=== PATIENT | female | born 1945 | race Caucasian/White ===

== ENCOUNTER 2016-07-11 09:07 | Observation (INO) | payer MEDICARE, OTHER ==
[~2016-07-11] VITALS: Ht 152.4 cm; Wt 59.0 kg
[~2016-07-11 09:07] MED LIST: AMIT10TA6 PO; KCL10CCR; LOVA20TA63; METR45CR2; SPIR25TA3 PO; TRIA1CAP4; TROS60CA
[2016-07-11] MEDS ORDERED: NS IV 1000 ML 1,000 ML IV ONE (09:29)
[2016-07-11] MEDS ORDERED: ONDANSETRON 4 MG/2 ML (SDV) Z0FRAN IVP PRN (09:30)
[2016-07-11] MEDS ORDERED: ACETAMINOPHEN 500 MG TAB (TYLENOL) PO PRN ×2 (09:30→13:15)
[2016-07-11 09:40] LABS: BASOPHILS % (AUTO) 0 % (0-10); EOSINOPHILS % (AUTO) 1 % (0-10); LYMPHOCYTES # (AUTO) 0.4 X 10^3 (1.0-4.0); LYMPHOCYTES % (AUTO) 6 % (12-44); MEAN CORPUSCULAR HEMOGLOBIN 30 PG (25-34); MEAN CORPUSCULAR HGB CONC 35 G/DL (32-36); MEAN CORPUSCULAR VOLUME 85 FL (80-99); MEAN PLATELET VOLUME 9.9 FL (7.4-10.4); MONOCYTES # (AUTO) 0.4 X 10^3 (0.0-1.0); MONOCYTES % (AUTO) 6 % (0-12); NEUTROPHILS # (AUTO) 6.6 X 10^3 (1.8-7.8); NEUTROPHILS % (AUTO) 88 % (42-75); PLATELET COUNT 151 10^3/uL (130-400); RED BLOOD COUNT 5.11 10^6/uL (4.35-5.85); RED CELL DISTRIBUTION WIDTH 12.6 % (10.0-14.5); WHITE BLOOD COUNT 7.5 10^3/uL (4.3-11.0)
[2016-07-11] MEDS ORDERED: ACETAMINOPHEN 500 MG TAB (TYLENOL) ONE (09:40)
[2016-07-11 09:52] LABS: PROTHROMBIN TIME PATIENT 13.2 SEC (12.2-14.7)
--- NOTE | 2016-07-11 09:52 | ED General ---
General Chief Complaint: Abdominal/GI Problems Stated Complaint: WEAKNESS FALL Source of Information: Patient Exam Limitations: No Limitations History of Present Illness Time Seen by Provider: 09:15 Initial Comments Here with report of fever, weakness, vomiting and a fall. here with family who reports that she's been sick for the past 2-3 days and had episodes of vomiting and fever. Apparently passed out yesterday. Denies any pain from that. She does have fever today. Denies diarrhea. The trip involved travel to [place] and back. Frequent stops were made. Nobody else in the family is sick. Timing/Duration: 2-3 Days Severity: Moderate Associated Systoms: No Chest Pain, No Cough, Fever/Chills, Nausea/Vomiting, No Shortness of Air, Weakness Allergies and Home Medications Allergies Coded Allergies: Ampicillin (Unverified Allergy, Mild, 05/07/09) Codeine (Unverified Allergy, Mild, 05/07/09) Hydrocodone (Unverified Allergy, Mild, 05/07/09) Nitrofurantoin (Unverified Allergy, Mild, 05/07/09) Sulfa(Sulfonamide Antibiotics) (Unverified Allergy, Mild, 05/07/09) tramadol (Unverified Allergy, Mild, 05/07/09) Home Medications Amitriptyline Hcl 10 Mg Tablet, 1 EACH PO DAILY, (Reported) Lovastatin 20 Mg Tab.sr.24h, (Reported) Mirabegron 50 Mg Tab.er.24h, 50 MG PO D, (Reported) Potassium Chloride 10 Meq Capcr, (Reported) Spironolactone 25 Mg Tablet, 25 MG PO, (Reported) Trospium Chloride 60 Mg Cap.sr.24h, (Reported) Constitutional: see HPI, chills, fever, weakness EENTM: nose congestion, No throat pain Respiratory: No cough, No short of breath Cardiovascular: see HPI, No chest pain, No edema, No palpitations, syncope Gastrointestinal: No abdominal pain, No diarrhea, nausea, vomiting Genitourinary: no symptoms reported Musculoskeletal: no symptoms reported Skin: no symptoms reported Psychiatric/Neurological: No Symptoms Reported All Other Systems Reviewed Negative Unless Noted: Yes Past Muvirsh-Srxywd-Mzfrlh Hx Patient Social History Alcohol Use: Denies Use Smoking Status: Never a Smoker Recent Foreign Travel: No Contact w/Someone Who Travel: No Surgeries HX Surgeries: Yes Surgeries: Section Respiratory Hx Respiratory Disorders: No Cardiovascular Hx Cardiac Disorders: Yes Cardiac Disorders: Hypertension Neurological Hx Neurological Disorders: No 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 System Hx 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 Disorders: No Genitourinary Hx Genitourinary Disorders: Yes (PELVIC PAIN, UTI'S) Gastrointestinal Hx Gastrointestinal Disorders: No Musculoskeletal Hx Musculoskeletal Disorders: No Endocrine Hx Endocrine Disorders: No HEENT HX ENT Disorders: No Blood Transfusions Hx Blood Disorders: No Reviewed Nursing Assessment Reviewed/Agree w Nursing PMH: Yes Family Medical History Significant Family History: No Pertinent Family Hx Physical Exam-Suspected Sepsis Physical Exam Vital Signs Vital Sign - Last 12Hours 07/11/16 09:15 Temp 100.1 Pulse 91 Resp 18 B/P (MAP) 128/66 Pulse Ox 95 Capillary Refill : General Appearance: No Apparent Distress, WD/WN HEENT: PERRL/EOMI, Pharynx Normal Neck: Non Tender, Supple Respiratory: Lungs Clear, Normal Breath Sounds Cardiovascular: Regular Rate, Rhythm, No Murmur Gastrointestinal: Non Tender, Soft Back: Normal Inspection, No CVA Tenderness, No Vertebral Tenderness Extremity: Non Tender, No Calf Tenderness Neurologic/Psychiatric: Alert, Oriented x3, No Motor/Sensory Deficits, Normal Mood/Affect, No Abnormal Gait Skin: normal color, warm/dry Progress/Results/Core Measures Suspected Sepsis SIRS Temperature: Pulse: Respiratory Rate: Laboratory Tests 07/11/16 09:20: White Blood Count 7.5 Blood Pressure / Mean: Laboratory Tests 07/11/16 09:20: Creatinine 1.17, INR Comment 1.0, Platelet Count 151, Total Bilirubin 0.8 Results/Orders Lab Results Laboratory Tests Test 07/11/16 09:20 07/11/16 11:25 Range/Units White Blood Count 7.5 4.3-11.0 10^3/uL Red Blood Count 5.11 4.35-5.85 10^6/uL Hemoglobin 15.2 11.5-16.0 G/DL Hematocrit 44 35-52 % Mean Corpuscular Volume 85 80-99 FL Mean Corpuscular Hemoglobin 30 25-34 PG Mean Corpuscular Hemoglobin Concent 35 32-36 G/DL Red Cell Distribution Width 12.6 10.0-14.5 % Platelet Count 151 130-400 10^3/uL Mean Platelet Volume 9.9 7.4-10.4 FL Neutrophils (%) (Auto) 88 H 42-75 % Lymphocytes (%) (Auto) 6 L 12-44 % Monocytes (%) (Auto) 6 0-12 % Eosinophils (%) (Auto) 1 0-10 % Basophils (%) (Auto) 0 0-10 % Neutrophils # (Auto) 6.6 1.8-7.8 X 10^3 Lymphocytes # (Auto) 0.4 L 1.0-4.0 X 10^3 Monocytes # (Auto) 0.4 0.0-1.0 X 10^3 Eosinophils # (Auto) 0.0 0.0-0.3 10^3/uL Basophils # (Auto) 0.0 0.0-0.1 10^3/uL Neutrophils % (Manual) 85 % Lymphocytes % (Manual) 9 % Monocytes % (Manual) 3 % Eosinophils % (Manual) 0 % Basophils % (Manual) 0 % Band Neutrophils 3 % Blood Morphology Comment NORMAL Prothrombin Time 13.2 12.2-14.7 SEC INR Comment 1.0 0.8-1.4 Activated Partial Thromboplast Time 33 24-35 SEC Sodium Level 125 *L 135-145 MMOL/L Potassium Level 4.7 3.6-5.0 MMOL/L Chloride Level 94 L 98-107 MMOL/L Carbon Dioxide Level 19 L 21-32 MMOL/L Anion Gap 12 5-14 MMOL/L Blood Urea Nitrogen 24 H 7-18 MG/DL Creatinine 1.17 0.60-1.30 MG/DL Estimat Glomerular Filtration Rate 45 BUN/Creatinine Ratio 21 Glucose Level 125 H 70-105 MG/DL Lactic Acid Level 1.33 0.50-2.00 MMOL/L Calcium Level 9.4 8.5-10.1 MG/DL Total Bilirubin 0.8 0.1-1.0 MG/DL Aspartate Amino Transf (AST/SGOT) 48 H 5-34 U/L Alanine Aminotransferase (ALT/SGPT) 49 0-55 U/L Alkaline Phosphatase 96 40-136 U/L Total Protein 7.1 6.4-8.2 G/DL Albumin 4.1 3.2-4.5 G/DL Urine Color YELLOW Urine Clarity CLEAR Urine pH 6 5-9 Urine Specific [place] 1.010 L 1.016-1.022 Urine Protein NEGATIVE NEGATIVE Urine Glucose (UA) NEGATIVE NEGATIVE Urine Ketones 2+ H NEGATIVE Urine Nitrite NEGATIVE NEGATIVE Urine Bilirubin NEGATIVE NEGATIVE Urine Urobilinogen NORMAL NORMAL MG/DL Urine Leukocyte Esterase NEGATIVE NEGATIVE Urine RBC (Auto) NEGATIVE NEGATIVE Urine RBC NONE /HPF Urine WBC NONE /HPF Urine Squamous Epithelial Cells NONE /HPF Urine Crystals NONE /LPF Urine Bacteria NEGATIVE /HPF Urine Casts NONE /LPF Urine Mucus NEGATIVE /LPF Urine Culture Indicated NO My Orders Orders - NIC MEJÍA MD Ct Head Wo (07/11/16 09:29) Cbc With Automated Diff (07/11/16:29) Comprehensive Metabolic Panel (07/11/16:29) Lactic Acid Analyzer (07/11/16:29) Blood Culture (07/11/16:29) Sputum Culture (07/11/16:29) Ua Culture If Indicated (07/11/16:29) Protime With Inr (07/11/16:29) Partial Thromboplastin Time (07/11/16:29) Chest 1 View, Ap/Pa Only (07/11/16:29) O2 (07/11/16:29) Ondansetron Injection (Zofran Injectio (07/11/16 09:30) Acetaminophen Tablet (Tylenol Tablet) (07/11/16 09:30) Saline Lock/Iv-Start (07/11/16 09:29) Vital Signs Adult Sepsis Patie Q1HR (07/11/16 09:29) Remove Rings In Anticipation O (07/11/16 09:29) Ns Iv 1000 Ml (Sodium Chloride 0.9%) (07/11/16 09:29) Acetaminophen Tablet (Tylenol Tablet) (07/11/16 09:40) Manual Differential (07/11/16 09:20) Medications Given in ED Current Medications Medications Dose Ordered Sig/Taj Route Start Time Stop Time Status Last Admin Dose Admin Acetaminophen 1,000 mg ONCE PRN PO 07/11/16 09:30 07/11/16 09:37 DC 07/11/16 09:37 1,000 MG Ondansetron HCl 4 mg ONCE PRN IVP 07/11/16 09:30 07/11/16 09:37 DC 07/11/16 09:36 4 MG Sodium Chloride 1,000 ml @ 0 mls/hr Q0M ONCE IV 07/11/16 09:29 07/11/16 09:36 DC 07/11/16 09:37 1,000 MLS/HR Vital Signs/I&O Vital Sign - Last 12Hours 07/11/16 09:15 Temp 100.1 Pulse 91 Resp 18 B/P (MAP) 128/66 Pulse Ox 95 Capillary Refill : Progress Note : Progress Note Seen and evaluated. IV, labs, blood cultures and lactic acid ordered. Normal saline 1 L bolus and Tylenol 1 g by mouth given. Zofran [address] head ordered due to fall. Monitor patient. 1220: I have discussed the case with Dr. Thompson. CT results reviewed as well as hyponatremia. Patient is doing a little better but still has quite low sodium. We will admit the patient observation status for hyponatremia. He will pursue CT findings as indicated. All the findings and results were discussed with patient and family who agree with plan. Admit, observation status. Diagnostic Imaging Diagonstic Imaging: CT Plain Films/CT/US/NM/MRI: head Comments [facility] [place], [place] NAME: ZECHARIAH ARRIAGA [facility] REC#: [id number] PT STATUS: REG ER : 1945 PHYSICIAN: NIC MEJÍA MD ADMIT DATE: 07/11/16/ER Draft Date of Exam:07/11/16 CT HEAD WO PROCEDURE: CT head without contrast. TECHNIQUE: Multiple contiguous axial images were obtained through the brain without the use of intravenous contrast. INDICATION: Confusion. FINDINGS: Ventricles are dilated throughout. Cortical gyral pattern appears normal. There is no evidence of intracranial hemorrhage. There is no mass effect. Basal cisterns are clear. Mastoid air cells and paranasal sinuses are clear. IMPRESSION: 1. Dilated lateral third and fourth ventricles raising concern for normal pressure hydrocephalus. 2. No evidence of ischemic or hemorrhagic infarct. Dictated on workstation # [id number] Dict: 07/11/16 1014 Trans: 07/11/16 1018 [id number] Interpreted by: KATLYN ALLEN MD Electronically signed by: Diagonstic Imaging: Xray Plain Films/CT/US/NM/MRI: chest Comments [facility] [place] NAME: ZECHARIAH ARRIAGA MED REC#: [id number] PT STATUS: REG ER : 1945 PHYSICIAN: NIC MEJÍA MD ADMIT DATE: 07/11/16/ER Draft Date of Exam:07/11/16 CHEST 1 VIEW, AP/PA ONLY INDICATION: Dehydration 1027 hrs. Comparison is made to study of 08/10/2012. Overall heart size and pulmonary vascularity are within normal limits. There is no pneumothorax or consolidation. No significant pleural fluid is identified. IMPRESSION: No acute abnormality or adverse change is seen. Dictated on workstation # [id number] Dict: 07/11/16 1028 Trans: 07/11/16 1030 [facility] [id number] Interpreted by: ARELI ROMERO MD Electronically signed by: Departure Communication Time/Spoke to Admitting Phy: 12:02 Impression Impression: Primary Impression: Hyponatremia Additional Impressions: Dehydration Vomiting Qualified Codes: R11.14 - Bilious vomiting Disposition: ADMITTED INPATIENT Condition: Stable Decision to Admit Reason: Admit from ER (General) Decision to Admit/Date: Jul 11, 2016 Time/Decision to Admit Time: 11:52 Departure-Patient Inst. Referrals: MATTHEW THOMPSON MD (PCP/Family) Primary Care Physician NIC MEJÍA MD Jul 11, 2016 09:52
[2016-07-11] MEDS ORDERED: MIRA50TA PO (09:54)
[2016-07-11 10:06] LABS: BAND NEUTROPHILS 3 %; BASOPHILS % (MANUAL) 0 %; EOSINOPHILS % (MANUAL) 0 %; LYMPHOCYTES % (MANUAL) 9 %; NEUTROPHILS % (MANUAL) 85 %
--- NOTE | 2016-07-11 10:19 | Diagnostic Imaging Report ---
PROCEDURE: CT head without contrast. TECHNIQUE: Multiple contiguous axial images were obtained through the brain without the use of intravenous contrast. INDICATION: Confusion. FINDINGS: Ventricles are dilated throughout. Cortical gyral pattern appears normal. There is no evidence of intracranial hemorrhage. There is no mass effect. Basal cisterns are clear. Mastoid air cells and paranasal sinuses are clear. IMPRESSION: 1. Dilated lateral third and fourth ventricles raising concern for normal pressure hydrocephalus. 2. No evidence of ischemic or hemorrhagic infarct. Dictated by: Dictated on workstation # [id number]
--- NOTE | 2016-07-11 10:30 | Diagnostic Imaging Report ---
INDICATION: Dehydration 1027 hrs. Comparison is made to study of 08/10/2012. Overall heart size and pulmonary vascularity are within normal limits. There is no pneumothorax or consolidation. No significant pleural fluid is identified. IMPRESSION: No acute abnormality or adverse change is seen. Dictated by: Dictated on workstation # [id number]
[2016-07-11 10:51] LABS: ALBUMIN 4.1 G/DL (3.2-4.5); BILIRUBIN,TOTAL 0.8 MG/DL (0.1-1.0); CALCIUM 9.4 MG/DL (8.5-10.1); CREATININE SERUM 1.17 MG/DL (0.60-1.30); POTASSIUM 4.7 MMOL/L (3.6-5.0); TOTAL PROTEIN 7.1 G/DL (6.4-8.2)
[2016-07-11 11:37] LABS: BILIRUBIN,URINE NEGATIVE (NEGATIVE); KETONES,URINE 2+ (NEGATIVE); LEUKOCYTE ESTERASE ,URINE NEGATIVE (NEGATIVE); NITRITE,URINE NEGATIVE (NEGATIVE); PH,URINE 6 (5-9); PROTEIN,URINE NEGATIVE (NEGATIVE); UROBILINOGEN,URINE NORMAL (NORMAL)
[2016-07-11 12:55] VITALS: BP 106/57
[2016-07-11] MEDS ORDERED: TRIM100T PO (13:01)
[2016-07-11] MEDS ORDERED: LOVA20TA2 PO (13:01)
[2016-07-11] MEDS ORDERED: POTA10TA10 PO (13:01)
[2016-07-11] MEDS ORDERED: AMIT10TA6 PO (13:01)
[2016-07-11] MEDS ORDERED: SPIR100T2 PO (13:01)
[2016-07-11] MEDS ORDERED: ONDANSETRON 4 MG/2 ML (SDV) Z0FRAN IV PRN (13:15)
[2016-07-11] MEDS ORDERED: CATHETER FLUSH 10 ML SYR IV PRN (13:15)
[2016-07-11] MEDS: NS IV 1000 ML 1,000 ML IV SCH (13:36)
[2016-07-11 16:13] VITALS: BP 115/58
[2016-07-11 16:33] LABS: CALCIUM 8.4 MG/DL (8.5-10.1); CREATININE SERUM 0.95 MG/DL (0.60-1.30); POTASSIUM 4.2 MMOL/L (3.6-5.0)
--- NOTE | 2016-07-11 18:33 | History & Physical ---
History of Present Illness History of Present Illness Reason for visit/HPI 71-year-old female admitted for dehydration with associated nausea and vomiting resulting in hyponatremia. Patient just returned from a [place] vacation. Patient reports she feels like she had too much vacation. She thinks she stayed hydrated with water. Onset couple days ago but worsened today. Patient' s reported she was unable to walk last night into today and even fell down. Patient did have fevers of 99 Fahrenheit. Patient did have 100.3 temperature in the ED. While in ER patient did get 1 L of IV fluids normal saline and was continued on 75 ml/ hour. A CT was obtained secondary to patient 's fall and confusion which did show dilation of the ventricles suggestive of normal pressure hydrocephalus. Patient does cite she has had difficulty with walking over the past few months describes it as a shuffling gait. She also notes that she notices her gait is off a little bit because her grandchildren make fun of her shuffling. Patient reports she feels better after getting 1 L of fluid and is now reporting being hungry. Patient would like to eat and possibly go home tonight. On recheck of her BMP sodium was improved at 133. In regards to her normal pressure hydrocephalus patient would like to try medication and avoid the shunt placement if possible. Patient was admitted for overnight observation to further monitor and make sure her sodium improves as well as her nausea and vomiting. Will try a trial of Diamox IV overnight to see if it helps with her gait. Date of Admission Jul 11, 2016 at 12:18 I consulted on this patient on 07/11/16 18:27 Attending Physician Donny Thompson MD Admitting Physician Donny Thompson MD Consult Allergies and Home Medications Allergies Coded Allergies: Sulfa (Sulfonamide Antibiotics) (Unverified Allergy, Mild, 05/07/09) ampicillin (Unverified Allergy, Mild, 05/07/09) codeine (Unverified Allergy, Mild, 05/07/09) hydrocodone (Unverified Allergy, Mild, 05/07/09) nitrofurantoin (Unverified Allergy, Mild, 05/07/09) tramadol (Unverified Allergy, Mild, 05/07/09) Home Medications Acetazolamide 500 Mg Capsule.er, 500 MG PO DAILY for 30 Days, #30 Ref 1 Prescribed by: DONNY THOMPSON on 07/12/16 0742 Amitriptyline HCl 10 Mg Tablet, 10 MG PO HS, (Reported) Lovastatin 20 Mg Tablet, 20 MG PO HS, (Reported) Magnesium Oxide 400 Mg Tablet, 400 MG PO BID for 7 Days, #14 Prescribed by: DONNY THOMPSON on 07/12/16 0742 Mirabegron 50 Mg Tab.er.24h, 50 MG PO DAILY@0700, (Reported) Spironolactone 100 Mg Tablet, 100 MG PO DAILY, (Reported) Trimethoprim 100 Mg Tablet, 100 MG PO DAILY, (Reported) Past Isdtglh-Jisxfh-Fydirc Hx Patient Social History Alcohol Use: Denies Use Recreational Drug Use: No Smoking Status: Never a Smoker Physical Abuse Screen: No Sexual Abuse: No Recent Foreign Travel: No Contact w/other who traveled: No Recent Hopitalizations: No Recent Infectious Disease Expo: No Surgeries HX Surgeries: Yes Surgeries: Section Respiratory Hx Respiratory Disorders: No Cardiovascular Hx Cardiovascular Disorders: Yes Cardiac Disorders: Hypertension Neurological Hx Neurological Disorders: No 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 System : No Hx 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 Disorders: No Sexually Transmitted Disease: No Genitourinary Hx Genitourinary Disorders: Yes (PELVIC PAIN, UTI'S) Gastrointestinal Hx Gastrointestinal Disorders: No Musculoskeletal Hx Musculoskeletal Disorders: No Endocrine Hx Endocrine Disorders: No HEENT HX ENT Disorders: No Blood Transfusions Hx Blood Disorders: No Reviewed Nursing Assessment Reviewed/Agree w Nursing PMH: Yes Family Medical History Significant Family History: No Pertinent Family Hx Review of Systems Review of Systems General: No Chills, No Night Sweats HEENT: No Head Aches, No Visual Changes Pulmonary: No Dyspnea, No Cough Cardiovascular: No: Chest Pain, Palpitations Gastrointestinal: Nausea, Vomiting, No: Abdominal Pain Genitourinary: No Dysuria, Frequency Musculoskeletal: No: neck pain, shoulder pain Neurological: Other (shuffling gait), Weakness, No: Numbness All Other Systems Reviewed All Other Systems Reviewed: Yes Physical Exam Vital Signs Vital Sign - Last 12Hours 07/11/16 07/11/16 09:15 12:55 Temp 100.1 Pulse 91 Resp 18 B/P (MAP) 128/66 Pulse Ox 95 O2 Delivery Room Air Capillary Refill : Less Than 3 Seconds General Appearance: No Apparent Distress, WD/WN HEENT: PERRL/EOMI Neck: Full Range of Motion, Normal Inspection, Non Tender, Supple Respiratory: Chest Non Tender, Lungs Clear, Normal Breath Sounds, No Accessory Muscle Use, No Respiratory Distress Cardiovascular: Regular Rate, Rhythm, Other (pitting edema 1+ legs) Gastrointestinal: Normal Bowel Sounds, No Pulsatile Mass, Non Tender, Soft Rectal: Deferred Back: Normal Inspection, No CVA Tenderness, No Vertebral Tenderness Extremity: Normal Capillary Refill, Normal Inspection, Normal Range of Motion, Non Tender Neurologic/Psychiatric: Alert, Oriented x3, Normal Mood/Affect Skin: Normal Color, Warm/Dry Assessment/Plan Assessment/Plan Assessment/Plan 71 yo F dehydration - IVF nausea/vomiting- improved with IVF hypovolemic hyponatremia- improved with IVF rechecking in AM shuffling gait- CT evidence of NPH- will try acetazolamide - if unsuccessful will pursue further with LP and likely shunt placement DVT ppx: SCDs Dispo: IVF overnight- observation- plan to d/c to home tomorrow as long as she is improving Na normal and tolerating po. Problems: Clinical Quality Measures DVT/VTE Risk/Contraindication: Risk Factor Score Per Nursin RFS Level Per Nursing on Admit: 3=High DONNY THOMPSON MD Jul 11, 2016 18:33
[2016-07-11 19:52] VITALS: BP 118/54
[2016-07-11] MEDS: ACETAZOLAMIDE IV SCH ×3 (21:20)
[2016-07-11] MEDS: [UNRECOGNIZED DRUG - OTHER] IV SCH ×3 (21:20)
[2016-07-12 00:50] VITALS: BP 115/58
[2016-07-12] MEDS: NS IV 1000 ML 1,000 ML IV SCH (02:46)
[2016-07-12 04:48] VITALS: BP 104/55
[2016-07-12 05:00] LABS: BASOPHILS % (AUTO) 0 % (0-10); EOSINOPHILS # (AUTO) 0.2 10^3/uL (0.0-0.3); EOSINOPHILS % (AUTO) 5 % (0-10); LYMPHOCYTES # (AUTO) 0.5 X 10^3 (1.0-4.0); LYMPHOCYTES % (AUTO) 11 % (12-44); MEAN CORPUSCULAR HEMOGLOBIN 30 PG (25-34); MEAN CORPUSCULAR HGB CONC 34 G/DL (32-36); MEAN CORPUSCULAR VOLUME 89 FL (80-99); MEAN PLATELET VOLUME 9.6 FL (7.4-10.4); MONOCYTES # (AUTO) 0.4 X 10^3 (0.0-1.0); MONOCYTES % (AUTO) 7 % (0-12); NEUTROPHILS % (AUTO) 77 % (42-75); PLATELET COUNT 146 10^3/uL (130-400); RED BLOOD COUNT 4.48 10^6/uL (4.35-5.85); RED CELL DISTRIBUTION WIDTH 12.7 % (10.0-14.5); WHITE BLOOD COUNT 5.2 10^3/uL (4.3-11.0)
[2016-07-12 05:19] LABS: ANION GAP 9 MMOL/L (5-14); BLOOD UREA NITROGEN 17 MG/DL (7-18); BUN/CREATININE RATIO 19; CALCIUM 8.2 MG/DL (8.5-10.1); CARBON DIOXIDE 17 MMOL/L (21-32); CHLORIDE 109 MMOL/L (98-107); CREATININE SERUM 0.88 MG/DL (0.60-1.30); GFR ESTIMATED > 60; GLUCOSE 105 MG/DL (70-105); MAGNESIUM 1.5 MG/DL (1.8-2.4); POTASSIUM 3.9 MMOL/L (3.6-5.0); SODIUM 135 MMOL/L (135-145)
[2016-07-12 07:15] VITALS: BP 126/58
--- NOTE | 2016-07-12 07:34 | Discharge Summary ---
Diagnosis/Chief Complaint Date of Admission Jul 11, 2016 at 12:18 Date of Discharge July 12, 2016 Admission Diagnosis Admission Diagnosis dehydration nausea/vomiting- hypovolemic hyponatremia- shuffling gait- Discharge Diagnosis dehydration -resolved nausea/vomiting- resolved hypovolemic hyponatremia- resolved shuffling gait- due to normal pressure hydrocephalus hypomagnesemia Reason Hospital Visit 71-year-old female admitted for dehydration with associated nausea and vomiting resulting in hyponatremia. Patient just returned from a [place] vacation. Patient reports she feels like she had too much vacation. She thinks she stayed hydrated with water. Onset couple days ago but worsened today. Patient' s reported she was unable to walk last night into today and even fell down. Patient did have fevers of 99 Fahrenheit. Patient did have 100.3 temperature in the ED. While in ER patient did get 1 L of IV fluids normal saline and was continued on 75 ml/ hour. A CT was obtained secondary to patient 's fall and confusion which did show dilation of the ventricles suggestive of normal pressure hydrocephalus. Patient does cite she has had difficulty with walking over the past few months describes it as a shuffling gait. She also notes that she notices her gait is off a little bit because her grandchildren make fun of her shuffling. Patient reports she feels better after getting 1 L of fluid and is now reporting being hungry. Patient would like to eat and possibly go home tonight. On recheck of her BMP sodium was improved at 133. In regards to her normal pressure hydrocephalus patient would like to try medication and avoid the shunt placement if possible. Patient was admitted for overnight observation to further monitor and make sure her sodium improves as well as her nausea and vomiting. Will try a trial of Diamox IV overnight to see if it helps with her gait. Discharge Summary Hospital Course Hospital Course Patient's nausea and vomiting resolved prior to morning and her am labs- her sodium was back to normal- Magnesium was checked prior to discharged and found to be low at 1.5. We will replace it with 400mg magnesium oxide po as an outpatient. She will try the diamox for her shuffling gait as it was found she has NPH seen on CT. Patient was discharged in stable condition with no issues or new overnight events. We will follow up on the NPH - if she develops the urinary issues or dementia/wacky thinking- the shunt is very much indicated. Pt has an appt with JENNIFFERM in 2 weeks, she will report how the diamox has helped if at all. Labs Laboratory Tests 07/11/16 09:20: Neutrophils (%) (Auto) 88H, Lymphocytes (%) (Auto) 6L, Lymphocytes # (Auto) 0.4L , Sodium Level 125*L, Chloride Level 94L, Carbon Dioxide Level 19L, Blood Urea Nitrogen 24H, Glucose Level 125H, Aspartate Amino Transf (AST/SGOT) 48H 07/11/16 11:25: Urine Specific [place] 1.010L, Urine Ketones 2+H 07/11/16 16:11: Sodium Level 133L, Blood Urea Nitrogen 19H, Calcium Level 8.4L 07/12/16 04:50: Neutrophils (%) (Auto) 77H, Lymphocytes (%) (Auto) 11L, Lymphocytes # (Auto) 0.5L, Chloride Level 109H, Carbon Dioxide Level 17L, Calcium Level 8.2L, Magnesium Level 1.5L CT head Procedures None. Discharge Physical Examination Allergies: Coded Allergies: Sulfa (Sulfonamide Antibiotics) (Unverified Allergy, Mild, 05/07/09) ampicillin (Unverified Allergy, Mild, 05/07/09) codeine (Unverified Allergy, Mild, 05/07/09) hydrocodone (Unverified Allergy, Mild, 05/07/09) nitrofurantoin (Unverified Allergy, Mild, 05/07/09) tramadol (Unverified Allergy, Mild, 05/07/09) Vitals & I&Os Vital Signs Date Time Temp Pulse Resp B/P (MAP) Pulse Ox O2 Delivery O2 Flow Rate FiO2 07/12/16 07:15 97.7 76 20 126/58 97 Room Air General Appearance: Alert, Oriented X3, Cooperative HEENT: Atraumatic, PERRLA Respiratory: Clear to Auscultation Cardiovascular: Regular Rate Abdominal: Normal Bowel Sounds, Soft Extremities: No Clubbing, No Cyanosis Skin: No Rashes Neuro: Normal Speech, Strength at 5/5 X4 Ext Psych/Mental Status: Mental Status NL, Mood NL Discharge Home Medications Reviewed and agree with Discharge Medication list on patient's Discharge Instruction sheet Condition at Discharge stable Instructions to Patient/Family Please see electronic discharge instructions given to patient. Clinical Quality Measures DVT/VTE Risk/Contraindication: Risk Factor Score Per Nursin RFS Level Per Nursing on Admit: 3=High MATTHEW THOMPSON MD Jul 12, 2016 07:34
[2016-07-12] MEDS ORDERED: ACET500C PO (07:42)
[2016-07-12] MEDS ORDERED: MAGN400T6 PO (07:42)
--- NOTE | 2016-07-12 07:47 | Discharge Inst-Simple/Standard ---
Discharge Inst-Standard Discharge Medications New, Converted or Re-Newed RX: Call to Patients Pharmacy Patient Instructions/Follow Up Plan of Care/Instructions/FU: keep follow appt at [facility] in a couple weeks- already scheduled Starting acetazolamide to see if it helps with her walking. Activity as Tolerated: Yes Discharge Diet: Eat Small Frequent Meals Return to The Hospital For: intractable nausea/vomiting confusion other concerns. Planned Outpatient Orders/Ref. Pneu Vac Indicated: Yes MATTHEW THOMPSON MD Jul 12, 2016 07:47
[2016-07-12] MEDS: [UNRECOGNIZED DRUG - OTHER] IV SCH ×3 (07:52)
[2016-07-12] MEDS: ACETAZOLAMIDE IV SCH ×3 (07:52)
--- OUTSIDE RECORDS SUMMARY | 2016-07-26 17:13 | XMS REPORT | Continuity of Care Document ---
Author Author [facility] Organization [facility] Address Unknown Phone Unavailable Allergies Active Description Code Type Severity Reaction Onset Reported/Identified Relationship to Patient Clinical Status Yes ampicillin [id number] Drug Allergy Mild N/A 05/07/2009 Yes codeine [id number] Drug Allergy Mild N/A 05/07/2009 Yes hydrocodone [id number] Drug Allergy Mild N/A 05/07/2009 Yes nitrofurantoin [id number] Drug Allergy Mild N/A 05/07/2009 Yes Sulfa (Sulfonamide Antibiotics) [id number] Drug Allergy Mild N/A 05/07/2009 Yes tramadol [id number] Drug Allergy Mild N/A 05/07/2009 Medications Problems Date Dx Coded Attending Type Code Diagnosis Diagnosed By 01/09/2012 Ot V58.69 OTH MED,LT,CURRENT USE 01/09/2012 Ot V76.51 SCREEN MAL NEOP-COLON 07/08/2014 Ot V76.12 07/17/2014 Ot V76.12 06/25/2015 Ot V76.12 06/25/2015 Ot V76.12 06/25/2015 Ot V72.84 06/25/2015 Ot V76.12 06/25/2015 DALILA BOOKER, EDIS Smyth Ot 486 06/25/2015 DALILA BOOKER, EDIS Smyth Ot 780.79 06/25/2015 DALILA BOOKER, EDIS Smyth Ot 786.2 06/25/2015 DALILA BOOKER, EDIS Smyth Ot 719.45 06/25/2015 DALILA BOOKER, EDIS Smyth Ot 729.5 06/25/2015 ALFIE WINKLER DO Ot V70.0 06/25/2015 ALFIE WINKLER DO Ot V76.12 06/25/2015 Ot V76.12 07/21/2015 DALILA BOOKER, EDIS Smyth Ot Z12.31 07/11/2016 Ot V76.12 OT SCREEN MAMMO-MALIGN NEOPLASM OF JERRELL 07/11/2016 Ot V72.84 EXAM PRE-OPERATIVE NOS 07/11/2016 Ot V76.12 OTH SCREEN MAMMO-MALIGN NEOPLASM OF JERRELL 07/11/2016 EDIS CONNER MD Ot 486 PNEUMONIA, ORGANISM NOS 07/11/2016 EDIS CONNER MD Ot 780.79 OTH MALAISE FATIGUE 07/11/2016 EDIS CONNRE MD Ot 786.2 COUGH 07/11/2016 EDIS CONNER MD Ot 719.45 JOINT PAIN-PELVIS 07/11/2016 EDIS CONNER MD Ot 729.5 PAIN IN LIMB 07/11/2016 ALFIE WINKLER DO Ot V70.0 ROUTINE MEDICAL EXAM 07/11/2016 ALFIE WINKLER DO Ot V76.12 OTH SCREEN MAMMO-MALIGN NEOPLASM OF JERRELL 07/11/2016 Ot V76.12 OTH SCREEN MAMMO-MALIGN NEOPLASM OF JERRELL 07/11/2016 EDIS CONNER MD Ot Z12.31 ENCNTR SCREEN MAMMOGRAM FOR MALIGNANT NE 07/11/2016 Ot V76.12 OTH SCREEN MAMMO-MALIGN NEOPLASM OF JERRELL 07/11/2016 Ot V72.84 EXAM PRE-OPERATIVE NOS 07/11/2016 Ot V76.12 OTH SCREEN MAMMO-MALIGN NEOPLASM OF JERRELL 07/11/2016 EDIS CONNER MD Ot 486 PNEUMONIA, ORGANISM NOS 07/11/2016 EDIS CONNER MD Ot 780.79 OTH MALAISE FATIGUE 07/11/2016 EDIS CONNER MD Ot 786.2 COUGH 07/11/2016 EDIS CONNER MD Ot 719.45 JOINT PAIN-PELVIS 07/11/2016 EDIS CONNER MD Ot 729.5 PAIN IN LIMB 07/11/2016 ALFIE WINKLER DO Ot V70.0 ROUTINE MEDICAL EXAM 07/11/2016 ALFIE WINKLER DO Ot V76.12 OTH SCREEN MAMMO-MALIGN NEOPLASM OF JERRELL 07/11/2016 Ot V76.12 OTH SCREEN MAMMO-MALIGN NEOPLASM OF JERRELL 07/11/2016 EDIS CONNER MD Ot Z12.31 ENCNTR SCREEN MAMMOGRAM FOR MALIGNANT NE 07/11/2016 Ot V76.12 OTH SCREEN MAMMO-MALIGN NEOPLASM OF JERRELL 07/11/2016 Ot V72.84 EXAM PRE-OPERATIVE NOS 07/11/2016 Ot V76.12 OTH SCREEN MAMMO-MALIGN NEOPLASM OF JERRELL 07/11/2016 EDIS CONNER MD Ot 486 PNEUMONIA, ORGANISM NOS 07/11/2016 EDIS CONNER MD Ot 780.79 OTH MALAISE FATIGUE 07/11/2016 EDIS CONNER MD Ot 786.2 COUGH 07/11/2016 EDIS CONNER MD Ot 719.45 JOINT PAIN-PELVIS 07/11/2016 EDIS CONNER MD Ot 729.5 PAIN IN LIMB 07/11/2016 ALFIE WINKLER DO Ot V70.0 ROUTINE MEDICAL EXAM 07/11/2016 ALFIE WINKLER DO Ot V76.12 OTH SCREEN MAMMO-MALIGN NEOPLASM OF JERRELL 07/11/2016 Ot V76.12 OTH SCREEN MAMMO-MALIGN NEOPLASM OF JERRELL 07/11/2016 EDIS CONNER MD Ot Z12.31 ENCNTR SCREEN MAMMOGRAM FOR MALIGNANT NE 07/11/2016 Ot V76.12 OTH SCREEN MAMMO-MALIGN NEOPLASM OF JERRELL 07/11/2016 Ot V72.84 EXAM PRE-OPERATIVE NOS 07/11/2016 Ot V76.12 OTH SCREEN MAMMO-MALIGN NEOPLASM OF JERRELL 07/11/2016 EDIS CONNER MD Ot 486 PNEUMONIA, ORGANISM NOS 07/11/2016 EDIS CONNER MD Ot 780.79 OTH MALAISE FATIGUE 07/11/2016 EDIS CONNER MD Ot 786.2 COUGH 07/11/2016 EDIS CONNER MD Ot 719.45 JOINT PAIN-PELVIS 07/11/2016 EDIS CONNER MD Ot 729.5 PAIN IN LIMB 07/11/2016 ALFIE WINKLER DO Ot V70.0 ROUTINE MEDICAL EXAM 07/11/2016 ALFIE WINKLER DO Ot V76.12 OTH SCREEN MAMMO-MALIGN NEOPLASM OF JERRELL 07/11/2016 Ot V76.12 OTH SCREEN MAMMO-MALIGN NEOPLASM OF JERRELL 07/11/2016 EDIS CONNER MD Ot Z12.31 ENCNTR SCREEN MAMMOGRAM FOR MALIGNANT NE 07/12/2016 MATTHEW THOMPSON MD Ot E83.42 HYPOMAGNESEMIA 07/12/2016 MATTHEW THOMPSON MD Ot E86.0 DEHYDRATION 07/12/2016 MATTHEW THOMPSON MD Ot E87.1 HYPO-OSMOLALITY AND HYPONATREMIA 07/12/2016 MATTHEW THOMPSON MD Ot 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 07/12/2016 MATTHEW THOMPSON MD Ot I10 ESSENTIAL (PRIMARY) HYPERTENSION 07/12/2016 MATTHEW THOMPSON MD Ot R11.2 NAUSEA WITH VOMITING, UNSPECIFIED 07/12/2016 MATTHEW THOMPSON MD Ot R26.89 OTHER ABNORMALITIES OF GAIT AND MOBILITY 07/12/2016 MATTHEW THOMPSON MD Ot Z79.899 OTHER CARE HOME (CURRENT) DRUG THERAPY 07/12/2016 MATTHEW THOMPSON MD Ot Z91.81 HISTORY OF FALLING 07/12/2016 MATTHEW THOMPSON MD Ot E83.42 HYPOMAGNESEMIA 07/12/2016 MATTHEW THOMPSON MD Ot E86.0 DEHYDRATION 07/12/2016 MATTHEW THOMPSON MD Ot E87.1 HYPO-OSMOLALITY AND HYPONATREMIA 07/12/2016 MATTHEW THOMPSON MD Ot 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 07/12/2016 MATTHEW THOMPSON MD Ot I10 ESSENTIAL (PRIMARY) HYPERTENSION 07/12/2016 MATTHEW THOMPSON MD Ot R11.2 NAUSEA WITH VOMITING, UNSPECIFIED 07/12/2016 MATTHEW THOMPSON MD Ot R26.89 OTHER ABNORMALITIES OF GAIT AND MOBILITY 07/12/2016 MATTHEW THOMPSON MD Ot 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 07/12/2016 MATTHEW THOMPSON MD Ot Z91.81 HISTORY OF FALLING 07/21/2016 MATTHEW THOMPSON MD Ot E78.5 HYPERLIPIDEMIA, UNSPECIFIED 07/21/2016 MATTHEW THOMPSON MD Ot 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 ( 07/21/2016 MATTHEW THOMPSON MD Ot R73.09 OTHER ABNORMAL GLUCOSE 07/21/2016 MATTHEW THOMPSON MD Ot R94.6 ABNORMAL RESULTS OF THYROID FUNCTION DEVON 07/21/2016 MATTHEW THOMPSON MD Ot Z00.01 ENCOUNTER FOR GENERAL ADULT MEDICAL EXAM Procedures Results Test Result Range Bacterial blood culture - 07/11/16 04:57 Bacterial blood culture NG NR Complete blood count (CBC) with automated white blood cell (WBC) differential - 07/11/16 09:20 Blood leukocytes automated count (number/volume) 7.5 10*3/ uL 4.3-11.0 Blood erythrocytes automated count (number/volume) 5.11 10*6 /uL 4.35-5.85 Venous blood hemoglobin measurement (mass/volume) 15.2 g/dL 11.5-16.0 Blood hematocrit (volume fraction) 44 % 35-52 Automated erythrocyte mean corpuscular volume 85 [foz_us] 80-99 Automated erythrocyte mean corpuscular hemoglobin (mass per erythrocyte) 30 pg 25-34 Automated erythrocyte mean corpuscular hemoglobin concentration measurement ( mass/volume) 35 g/dL 32-36 Automated erythrocyte distribution width ratio 12.6 % 10.0-14.5 Automated blood platelet count (count/volume) 151 10*3/uL 130-400 Automated blood platelet mean volume measurement 9.9 [foz_us ] 7.4-10.4 Automated blood neutrophils/100 leukocytes 88 % 42-75 Automated blood lymphocytes/100 leukocytes 6 % 12-44 Blood monocytes/100 leukocytes 6 % 0-12 Automated blood eosinophils/100 leukocytes 1 % 0-10 Automated blood basophils/100 leukocytes 0 % 0-10 Blood neutrophils automated count (number/volume) 6.6 10*3 1.8-7.8 Blood lymphocytes automated count (number/volume) 0.4 10*3 1.0-4.0 Blood monocytes automated count (number/volume) 0.4 10*3 0.0-1.0 Automated eosinophil count 0.0 10*3/uL 0.0-0.3 Automated blood basophil count (count/volume) 0.0 10*3/uL 0.0-0.1 PT panel in platelet poor plasma by coagulation assay - 07/11/16 09:20 Prothrombin time (PT) in platelet poor plasma by coagulation assay 13.2 s 12.2-14.7 INR in platelet poor plasma or blood by coagulation assay 1.0 0.8-1.4 Activated partial thromboplastin time (aPTT) in platelet poor plasma bycoagulation assay - 07/11/16 09:20 Activated partial thromboplastin time (aPTT) in platelet poor plasma bycoagulation assay 33 s 24-35 Blood manual differential performed detection - 07/11/16 09:20 Blood monocytes/100 leukocytes 3 % NRG Manual blood segmented neutrophils/100 leukocytes 85 % NRG Blood band neutrophils/100 leukocytes 3 % NRG Manual blood lymphocytes/100 leukocytes 9 % NRG Manual eosinophils/100 leukocytes in nose 0 % NRG Manual blood basophils/100 leukocytes 0 % NRG Blood erythrocyte morphology finding identification NORMAL NRG Blood lactic acid measurement (moles/volume) - 07/11/16 09:20 Blood lactic acid measurement (moles/volume) 1.33 mmol/L 0.50-2.00 Comprehensive metabolic panel - 07/11/16 09:20 Serum or plasma sodium measurement (moles/volume) 125 mmol/ L 135-145 Serum or plasma potassium measurement (moles/volume) 4.7 mmol/L 3.6-5.0 Serum or plasma chloride measurement (moles/volume) 94 mmol/ L 98-107 Carbon dioxide 19 mmol/L 21-32 Serum or plasma anion gap determination (moles/volume) 12 mmol/L 5-14 Serum or plasma urea nitrogen measurement (mass/volume) 24 mg/dL 7-18 Serum or plasma creatinine measurement (mass/volume) 1.17 mg /dL 0.60-1.30 Serum or plasma urea nitrogen/creatinine mass ratio 21 NRG Serum or plasma creatinine measurement with calculation of estimated glomerular filtration rate 45 NRG Serum or plasma glucose measurement (mass/volume) 125 mg/dL 70-105 Serum or plasma calcium measurement (mass/volume) 9.4 mg/dL 8.5-10.1 Serum or plasma total bilirubin measurement (mass/volume) 0.8 mg/dL 0.1-1.0 Serum or plasma alkaline phosphatase measurement (enzymatic activity/volume) 96 U/L 40-136 Serum or plasma aspartate aminotransferase measurement (enzymatic activity/ volume) 48 U/L 5-34 Serum or plasma alanine aminotransferase measurement (enzymatic activity/volume ) 49 U/L 0-55 Serum or plasma protein measurement (mass/volume) 7.1 g/dL 6.4-8.2 Serum or plasma albumin measurement (mass/volume) 4.1 g/dL 3.2-4.5 Bacterial blood culture - 07/11/16 09:30 Bacterial blood culture NG NRG Complete urinalysis with reflex to culture - 07/11/16 11:25 Urine color determination YELLOW NRG Urine clarity determination CLEAR NRG Urine pH measurement by test strip 6 5- 9 Specific gravity of urine by test strip 1.010 1.016-1.022 Urine protein assay by test strip, semi-quantitative NEGATIVE NEGATIVE Urine glucose detection by automated test strip NEGATIVE NEGATIVE Erythrocytes detection in urine sediment by light microscopy NEGATIVE NEGATIVE Urine ketones detection by automated test strip 2+ NEGATIVE Urine nitrite detection by test strip NEGATIVE NEGATIVE Urine total bilirubin detection by test strip NEGATIVE NEGATIVE Urine urobilinogen measurement by automated test strip (mass/volume) NORMAL NORMAL Urine leukocyte esterase detection by dipstick NEGATIVE NEGATIVE Automated urine sediment erythrocyte count by microscopy (number/high power field) NONE NRG Automated urine sediment leukocyte count by microscopy (number/high power field ) NONE NRG Bacteria detection in urine sediment by light microscopy NEGATIVE NRG Squamous epithelial cells detection in urine sediment by light microscopy NONE NRG Crystals detection in urine sediment by light microscopy NONE NRG Casts detection in urine sediment by light microscopy NONE NRG Mucus detection in urine sediment by light microscopy NEGATIVE NRG Complete urinalysis with reflex to culture NO NRG Whole blood basic metabolic panel - 07/11/16 16:11 Serum or plasma sodium measurement (moles/volume) 133 mmol/ L 135-145 Serum or plasma potassium measurement (moles/volume) 4.2 mmol/L 3.6-5.0 Serum or plasma chloride measurement (moles/volume) 102 mmol /L 98-107 Carbon dioxide 23 mmol/L 21-32 Serum or plasma anion gap determination (moles/volume) 8 mmol/L 5-14 Serum or plasma urea nitrogen measurement (mass/volume) 19 mg/dL 7-18 Serum or plasma creatinine measurement (mass/volume) 0.95 mg /dL 0.60-1.30 Serum or plasma urea nitrogen/creatinine mass ratio 20 NRG Serum or plasma creatinine measurement with calculation of estimated glomerular filtration rate 58 NRG Serum or plasma glucose measurement (mass/volume) 105 mg/dL 70-105 Serum or plasma calcium measurement (mass/volume) 8.4 mg/dL 8.5-10.1 Complete blood count (CBC) with automated white blood cell (WBC) differential - 07/12/16 04:50 Blood leukocytes automated count (number/volume) 5.2 10*3/ uL 4.3-11.0 Blood erythrocytes automated count (number/volume) 4.48 10*6 /uL 4.35-5.85 Venous blood hemoglobin measurement (mass/volume) 13.4 g/dL 11.5-16.0 Blood hematocrit (volume fraction) 40 % 35-52 Automated erythrocyte mean corpuscular volume 89 [foz_us] 80-99 Automated erythrocyte mean corpuscular hemoglobin (mass per erythrocyte) 30 pg 25-34 Automated erythrocyte mean corpuscular hemoglobin concentration measurement ( mass/volume) 34 g/dL 32-36 Automated erythrocyte distribution width ratio 12.7 % 10.0-14.5 Automated blood platelet count (count/volume) 146 10*3/uL 130-400 Automated blood platelet mean volume measurement 9.6 [foz_us ] 7.4-10.4 Automated blood neutrophils/100 leukocytes 77 % 42-75 Automated blood lymphocytes/100 leukocytes 11 % 12-44 Blood monocytes/100 leukocytes 7 % 0-12 Automated blood eosinophils/100 leukocytes 5 % 0-10 Automated blood basophils/100 leukocytes 0 % 0-10 Blood neutrophils automated count (number/volume) 4.0 10*3 1.8-7.8 Blood lymphocytes automated count (number/volume) 0.5 10*3 1.0-4.0 Blood monocytes automated count (number/volume) 0.4 10*3 0.0-1.0 Automated eosinophil count 0.2 10*3/uL 0.0-0.3 Automated blood basophil count (count/volume) 0.0 10*3/uL 0.0-0.1 Whole blood basic metabolic panel - 07/12/16 04:50 Serum or plasma sodium measurement (moles/volume) 135 mmol/ L 135-145 Serum or plasma potassium measurement (moles/volume) 3.9 mmol/L 3.6-5.0 Serum or plasma chloride measurement (moles/volume) 109 mmol /L 98-107 Carbon dioxide 17 mmol/L 21-32 Serum or plasma anion gap determination (moles/volume) 9 mmol/L 5-14 Serum or plasma urea nitrogen measurement (mass/volume) 17 mg/dL 7-18 Serum or plasma creatinine measurement (mass/volume) 0.88 mg /dL 0.60-1.30 Serum or plasma urea nitrogen/creatinine mass ratio 19 NRG Serum or plasma creatinine measurement with calculation of estimated glomerular filtration rate > NRG Serum or plasma glucose measurement (mass/volume) 105 mg/dL 70-105 Serum or plasma calcium measurement (mass/volume) 8.2 mg/dL 8.5-10.1 Magnesium - 07/12/16 04:50 Magnesium 1.5 mg/dL 1.8-2.4 Complete blood count (CBC) with automated white blood cell (WBC) differential - 07/15/16 17:28 Blood leukocytes automated count (number/volume) 8.9 10*3/ uL 4.3-11.0 Blood erythrocytes automated count (number/volume) 5.38 10*6 /uL 4.35-5.85 Venous blood hemoglobin measurement (mass/volume) 16.0 g/dL 11.5-16.0 Blood hematocrit (volume fraction) 46 % 35-52 Automated erythrocyte mean corpuscular volume 85 [foz_us] 80-99 Automated erythrocyte mean corpuscular hemoglobin (mass per erythrocyte) 30 pg 25-34 Automated erythrocyte mean corpuscular hemoglobin concentration measurement ( mass/volume) 35 g/dL 32-36 Automated erythrocyte distribution width ratio 12.8 % 10.0-14.5 Automated blood platelet count (count/volume) 300 10*3/uL 130-400 Automated blood platelet mean volume measurement 9.6 [foz_us ] 7.4-10.4 Automated blood neutrophils/100 leukocytes 79 % 42-75 Automated blood lymphocytes/100 leukocytes 9 % 12-44 Blood monocytes/100 leukocytes 8 % 0-12 Automated blood eosinophils/100 leukocytes 4 % 0-10 Automated blood basophils/100 leukocytes 1 % 0-10 Blood neutrophils automated count (number/volume) 7.0 10*3 1.8-7.8 Blood lymphocytes automated count (number/volume) 0.8 10*3 1.0-4.0 Blood monocytes automated count (number/volume) 0.7 10*3 0.0-1.0 Automated eosinophil count 0.3 10*3/uL 0.0-0.3 Automated blood basophil count (count/volume) 0.1 10*3/uL 0.0-0.1 Comprehensive metabolic panel - 07/15/16 17:28 Serum or plasma sodium measurement (moles/volume) 129 mmol/ L 135-145 Serum or plasma potassium measurement (moles/volume) 4.2 mmol/L 3.6-5.0 Serum or plasma chloride measurement (moles/volume) 99 mmol/ L 98-107 Carbon dioxide 20 mmol/L 21-32 Serum or plasma anion gap determination (moles/volume) 10 mmol/L 5-14 Serum or plasma urea nitrogen measurement (mass/volume) 30 mg/dL 7-18 Serum or plasma creatinine measurement (mass/volume) 1.13 mg /dL 0.60-1.30 Serum or plasma urea nitrogen/creatinine mass ratio 27 NRG Serum or plasma creatinine measurement with calculation of estimated glomerular filtration rate 47 NRG Serum or plasma glucose measurement (mass/volume) 105 mg/dL 70-105 Serum or plasma calcium measurement (mass/volume) 10.9 mg/ dL 8.5-10.1 Serum or plasma total bilirubin measurement (mass/volume) 0.6 mg/dL 0.1-1.0 Serum or plasma alkaline phosphatase measurement (enzymatic activity/volume) 121 U/L 40-136 Serum or plasma aspartate aminotransferase measurement (enzymatic activity/ volume) 90 U/L 5-34 Serum or plasma alanine aminotransferase measurement (enzymatic activity/volume ) 179 U/L 0-55 Serum or plasma protein measurement (mass/volume) 8.0 g/dL 6.4-8.2 Serum or plasma albumin measurement (mass/volume) 4.4 g/dL 3.2-4.5 Serum or plasma phosphate measurement (mass/volume) - 07/15/16 17:28 Serum or plasma phosphate measurement (mass/volume) 4.3 mg/ dL 2.3-4.7 Magnesium - 07/15/16 17:28 Magnesium 1.6 mg/dL 1.8-2.4 Lipid 1996 panel - 07/15/16 17:28 Serum or plasma triglyceride measurement (mass/volume) 393 mg/dL <150 Serum or plasma cholesterol measurement (mass/volume) 221 mg /dL < 200 Serum or plasma cholesterol in HDL measurement (mass/volume) 28 mg/dL 40-60 Cholesterol in LDL [mass/volume] in serum or plasma by direct assay 126 mg/dL 1-129 Serum or plasma cholesterol in VLDL measurement (mass/volume) 79 mg/dL 5-40 Hemoglobin A1c - 07/15/16 17:28 Hemoglobin A1c 5.7 % 4.5-6.2 Serum or plasma thyrotropin measurement by detection limit <=0.05 miu/l (units/ volume) - 07/15/16 17:28 Serum or plasma thyrotropin measurement by detection limit <=0.05 miu/l (units/ volume) 2.82 u[iU]/mL 0.35-4.94 25-hydroxyvitamin D measurement - 07/15/16 17:28 25-hydroxy vitamin D measurement 22 % 30- 100 Comprehensive metabolic panel - 07/26/16 15:13 Serum or plasma sodium measurement (moles/volume) 134 mmol/ L 135-145 Serum or plasma potassium measurement (moles/volume) 4.5 mmol/L 3.6-5.0 Serum or plasma chloride measurement (moles/volume) 102 mmol /L 98-107 Carbon dioxide 24 mmol/L 21-32 Serum or plasma anion gap determination (moles/volume) 8 mmol/L 5-14 Serum or plasma urea nitrogen measurement (mass/volume) 21 mg/dL 7-18 Serum or plasma creatinine measurement (mass/volume) 0.89 mg /dL 0.60-1.30 Serum or plasma urea nitrogen/creatinine mass ratio 24 NRG Serum or plasma creatinine measurement with calculation of estimated glomerular filtration rate > NRG Serum or plasma glucose measurement (mass/volume) 115 mg/dL 70-105 Serum or plasma calcium measurement (mass/volume) 9.8 mg/dL 8.5-10.1 Serum or plasma total bilirubin measurement (mass/volume) 0.4 mg/dL 0.1-1.0 Serum or plasma alkaline phosphatase measurement (enzymatic activity/volume) 114 U/L 40-136 Serum or plasma aspartate aminotransferase measurement (enzymatic activity/ volume) 22 U/L 5-34 Serum or plasma alanine aminotransferase measurement (enzymatic activity/volume ) 19 U/L 0-55 Serum or plasma protein measurement (mass/volume) 6.1 g/dL 6.4-8.2 Serum or plasma albumin measurement (mass/volume) 3.6 g/dL 3.2-4.5 Encounters ACCT No. Visit Date/Time Discharge Status Pt. Type Provider Facility Loc./Unit Complaint [id number] 07/11/2016 12:18:00 2016 09:00:00 DIS Inpatient MATTHEW THOMPSON MD [facility] 4TH HYPONATREMIA VOMITING DEHYDRATION [id number] 06/18/2013 10:29:00 2013 23:59:59 CLS Outpatient ALFIE WINKLER DO [facility] RAD SCREENING [id number] 02/14/2013 13:34:00 2012 23:59:59 CLS Outpatient EDIS CONNER MD [facility] RAD BILATERAL UPPER LEG PAIN [id number] 08/26/2012 13:29:00 2012 23:59:59 CLS Outpatient [id number] 08/10/2012 11:11:00 2012 23:59:59 CLS Outpatient EDIS CONNER MD [facility] RAD COUGH,PNEUMONIA,WEAKNESS,MALAISE [id number] 07/26/2016 15:53:00 Document Registration [id number] 07/15/2016 17:03:00 ACT Outpatient MATTHEW THOMPSON MD [facility] LAB Z00.01 [id number] 06/25/2015 09:26:00 Document Registration [id number] 06/25/2015 09:25:00 ACT Outpatient EDIS CONNER MD [facility] RAD SCREENING [id number] 06/23/2014 10:57:00 Document Registration [id number] 06/14/2012 10:26:00 Document Registration [id number] 01/09/2012 09:17:00 Document Registration [id number] 01/06/2012 08:14:00 Document Registration [id number] 06/13/2011 08:58:00 Document Registration [id number] 06/10/2010 10:54:00 Document Registration
--- OUTSIDE RECORDS SUMMARY | 2016-07-26 18:08 | XMS REPORT | Continuity of Care Document ---
Author Author [facility] Organization [facility] Address Unknown Phone Unavailable Allergies Active Description Code Type Severity Reaction Onset Reported/Identified Relationship to Patient Clinical Status Yes ampicillin [id number] Drug Allergy Mild N/A 05/07/2009 Yes codeine [id number] Drug Allergy Mild N/A 05/07/2009 Yes hydrocodone [id number] Drug Allergy Mild N/A 05/07/2009 Yes nitrofurantoin [id number] Drug Allergy Mild N/A 05/07/2009 Yes Sulfa (Sulfonamide Antibiotics) [id number] Drug Allergy Mild N/A 05/07/2009 Yes tramadol [id number] Drug Allergy Mild N/A 05/07/2009 Medications Problems [...] 07/12/2016 MATTHEW THOMPSON MD Ot Z79.899 OTHER LONG-TERM (CURRENT) DRUG THERAPY 07/12/2016 MATTHEW THOMPSON MD [...] 07/12/2016 MATTHEW THOMPSON MD Ot 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 Type Provider Facility Loc./Unit Complaint [id number] 07/11/2016 12:18:00 2016 09:00:00 DIS Inpatient MATTHEW THOMPSON MD [facility] 4TH HYPONATREMIA VOMITING DEHYDRATION [id number] 06/18/2013 10:29:00 2013 23:59:59 CLS Outpatient ALFIE WINKLER DO [facility] RAD SCREENING [id number] 02/14/2013 13:34:00 2012 23:59:59 CLS Outpatient EDIS CONNER MD [facility] RAD BILATERAL UPPER LEG PAIN [id number] 08/26/2012 13:29:00 2012 23:59:59 CLS Outpatient [id number] 08/10/2012 11:11:00 2012 23:59:59 CLS Outpatient EDIS CONNER MD [facility] RAD COUGH,PNEUMONIA,WEAKNESS,MALAISE [id number] 07/26/2016 15:53:00 Document Registration [id number] 07/15/2016 17:03:00 ACT Outpatient MATTHEW THOMPSON MD [facility] LAB Z00.01 [id number] 06/25/2015 09:26:00 Document Registration [id number] 06/25/2015 09:25:00 ACT Outpatient EDIS CONNER MD [facility] RAD SCREENING [id number] 06/23/2014 10:57:00 Document Registration [id number] 06/14/2012 10:26:00 Document Registration [id number] 01/09/2012 09:17:00 Document Registration [id number] 01/06/2012 08:14:00 Document Registration [id number] 06/13/2011 08:58:00 Document Registration [id number] 06/10/2010 10:54:00 Document Registration
== END 2016-07-12 07:42 | disposition home or self-care (01) ==
LOC: DELPENDDIS → EDUNIT# 09:07 → ER 09:10 → 4TH 12:18 → UNDOADMOB 12:18 → 4TH 12:22 → UNDOADMOB 12:22 → 4TH 13:15 → UNDODISOB 07-12 09:00
PROVIDERS: ADMIT Family Medicine; ATTEND Family Medicine
DX: E87.1 Hypo-osmolality and hyponatremia (principal); E86.0 Dehydration; R11.2 Nausea with vomiting, unspecified; E83.42 Hypomagnesemia; R26.89 Other abnormalities of gait and mobility; G91.2 (Idiopathic) normal pressure hydrocephalus; I10 Essential (primary) hypertension; Z91.81 History of falling; Z79.899 Other long term (current) drug therapy
CPT/HCPCS: 36415; 70450; 71010; 80048; 80053; 81000; 83605; 83735; 85007; 85025; 85027; 85610; 85730; 87040; 96361; 96374; G0378

== ENCOUNTER → 2016-07-15 | Outpatient (CLI) | payer MEDICARE, OTHER ==
[~2016-07-15] MED LIST changes: +ACET500C PO; +LOVA20TA2 PO; +MAGN400T6 PO; +MIRA50TA PO; +POTA10TA10 PO; +SPIR100T2 PO; +TRIM100T PO
[2016-07-15 17:34] LABS: BASOPHILS # (AUTO) 0.1 10^3/uL (0.0-0.1); BASOPHILS % (AUTO) 1 % (0-10); EOSINOPHILS # (AUTO) 0.3 10^3/uL (0.0-0.3); EOSINOPHILS % (AUTO) 4 % (0-10); LYMPHOCYTES # (AUTO) 0.8 X 10^3 (1.0-4.0); LYMPHOCYTES % (AUTO) 9 % (12-44); MEAN CORPUSCULAR HEMOGLOBIN 30 PG (25-34); MEAN CORPUSCULAR HGB CONC 35 G/DL (32-36); MEAN CORPUSCULAR VOLUME 85 FL (80-99); MEAN PLATELET VOLUME 9.6 FL (7.4-10.4); MONOCYTES # (AUTO) 0.7 X 10^3 (0.0-1.0); MONOCYTES % (AUTO) 8 % (0-12); NEUTROPHILS % (AUTO) 79 % (42-75); PLATELET COUNT 300 10^3/uL (130-400); RED BLOOD COUNT 5.38 10^6/uL (4.35-5.85); RED CELL DISTRIBUTION WIDTH 12.8 % (10.0-14.5); WHITE BLOOD COUNT 8.9 10^3/uL (4.3-11.0)
[2016-07-15 17:57] LABS: ALBUMIN 4.4 G/DL (3.2-4.5); BILIRUBIN,TOTAL 0.6 MG/DL (0.1-1.0); CALCIUM 10.9 MG/DL (8.5-10.1); CREATININE SERUM 1.13 MG/DL (0.60-1.30); MAGNESIUM 1.6 MG/DL (1.8-2.4); PHOSPHORUS 4.3 MG/DL (2.3-4.7); POTASSIUM 4.2 MMOL/L (3.6-5.0)
== END ==
LOC: LAB 17:03
PROVIDERS: ATTEND Family Medicine
DX: Z00.01 Encounter for general adult medical examination with abnormal findings (principal); E78.5 Hyperlipidemia, unspecified; R94.6 Abnormal results of thyroid function studies; R73.09 Other abnormal glucose; E83.32 Hereditary vitamin D-dependent rickets (type 1) (type 2)
CPT/HCPCS: 36415; 80053; 80061; 82306; 83036; 83735; 84100; 84443; 85025

== ENCOUNTER → 2016-07-26 | Outpatient (CLI) | payer MEDICARE, OTHER ==
[2016-07-26 15:48] LABS: ALANINE AMINOTRANSFERASE 19 U/L (0-55); ALBUMIN 3.6 G/DL (3.2-4.5); ANION GAP 8 MMOL/L (5-14); ASPARTATE AMINO TRANSFERASE 22 U/L (5-34); BILIRUBIN,TOTAL 0.4 MG/DL (0.1-1.0); BLOOD UREA NITROGEN 21 MG/DL (7-18); BUN/CREATININE RATIO 24; CALCIUM 9.8 MG/DL (8.5-10.1); CARBON DIOXIDE 24 MMOL/L (21-32); CHLORIDE 102 MMOL/L (98-107); CREATININE SERUM 0.89 MG/DL (0.60-1.30); GFR ESTIMATED > 60; GLUCOSE 115 MG/DL (70-105); POTASSIUM 4.5 MMOL/L (3.6-5.0); SODIUM 134 MMOL/L (135-145); TOTAL PROTEIN 6.1 G/DL (6.4-8.2)
== END ==
LOC: LAB 15:03
PROVIDERS: ATTEND Family Medicine
DX: E87.1 Hypo-osmolality and hyponatremia (principal)
CPT/HCPCS: 36415; 80053

== ENCOUNTER → 2016-09-13 | Outpatient (CLI) | payer MEDICARE, OTHER ==
[~2016-09-13] MED LIST changes: +GADOBUTROL 7.5 MMOL/7.5 ML (GADAVIST) VIAL IV ONE
--- NOTE | 2016-09-13 19:28 | Diagnostic Imaging Report ---
PROCEDURE: MR imaging of the brain with and without contrast. TECHNIQUE: Multiplanar, multisequence MR imaging of the brain was performed with and without contrast. INDICATION: Normal pressure hydrocephalus, gait abnormality COMPARISON STUDIES: CT scan of the head from 07/11/16. CONTRAST: 6 mL of Gadovist. FINDINGS: The MRI demonstrates marked dilatation of the lateral ventricles. Third and fourth ventricles are also dilated. The body of the lateral ventricles measures 4.6 cm. The third ventricle measures 1.6 cm. Some periventricular and subcortical white matter disease is present. No transependymal spread of fluid is present. The sulci are slightly prominent but normal for the patient's age and not nearly prominent like the ventricles are. There are no areas of diffusion. No mass effect, midline shift or hemorrhage is present. Contrast studies demonstrate no enhancing masses. There is normal enhancement of the meninges. The pituitary gland and midline structures appear normal. IMPRESSION: The lateral and third ventricles are dilated with essentially normal cortical sulci. This is most likely secondary to normal pressure hydrocephalus. No transependymal spread of fluid is seen. Some small vessel disease is present. Consider nuclear medicine scan for further evaluation. Dictated by: Dictated on workstation # [id number]
== END ==
LOC: RAD 18:23
PROVIDERS: ATTEND Family Medicine
DX: G91.2 (Idiopathic) normal pressure hydrocephalus (principal); R26.89 Other abnormalities of gait and mobility
CPT/HCPCS: 70553

== ENCOUNTER 2016-11-11 07:56 | Outpatient (RCR) | payer MEDICARE, OTHER ==
[~2016-11-11 07:56] MED LIST changes: -GADOBUTROL 7.5 MMOL/7.5 ML (GADAVIST) VIAL IV ONE
== END 2016-12-14 14:12 | disposition home or self-care (01) ==
PROVIDERS: ATTEND Family Medicine
DX: G91.2 (Idiopathic) normal pressure hydrocephalus (principal)

== ENCOUNTER 2017-09-21 05:29 | Outpatient (CLI) | payer MEDICARE, OTHER ==
[~2017-09-21] VITALS: Ht 152.4 cm; Wt 59.0 kg
[2017-09-26] MEDS ORDERED: MEDR10TA PO (14:07)
[2017-09-26] MEDS ORDERED: IBUP-1773 PO (14:07)
[2017-09-26] MEDS ORDERED: ACET-2267 PO (14:07)
== END 2017-09-21 16:06 ==
LOC: PREOP 05:29
PROVIDERS: ATTEND Obstetrics & Gynecology
DX: Z01.818 Encounter for other preprocedural examination (principal); N95.0 Postmenopausal bleeding

== ENCOUNTER 2017-09-26 11:28 | Day surgery (SDC) | payer MEDICARE, OTHER ==
[~2017-09-26] VITALS: Ht 152.4 cm; Wt 59.0 kg
[~2017-09-26 11:28] MED LIST changes: -SPIR100T2 PO; +SPIR100T4 PO
--- OUTSIDE RECORDS SUMMARY | 2017-09-26 11:31 | XMS REPORT | Encounter Summary ---
Author Author [facility] Organization [facility] Address Unknown Phone Unavailable Care Team Providers Care Solvent Plant Operator Name Role Phone Donny Luther MD PCP Reason for Visit * Reason Comments Other Encounter Details Date Type Department Care Team Description 07/25/2017 Office Visit [facility] Ward Maya MD Normal pressure Physicians - Neurosurgery [address] [place] hydrocephalus (Primary [address] 30[address] Dx); [address] [place] [address] Urinary frequency OFFICE [facility] [phone] [place] [address] Social History Tobacco Use Types Packs/Day Years Used Date Never Smoker Smokeless Tobacco: Never Used Alcohol Use Drinks/Week oz/Week Comments No Sex Assigned at Date Recorded Not on file as of this encounter Last Filed Vital Signs Vital Sign Reading Time Taken Blood Pressure 147/78 07/25/2017 11:13 AM CDT Pulse 74 07/25/2017 11:13 AM CDT Temperature - - Respiratory Rate - - Oxygen Saturation - - Inhaled Oxygen - - Concentration Weight 60.8 kg (134 lb) 07/25/2017 11:13 AM CDT Height 152.4 cm (5') 07/25/2017 11:13 AM CDT Body Mass Index 26.17 07/25/2017 11:13 AM CDT in this encounter Progress Notes * Gordy Duron MD - 07/25/2017 11:30 AM CDT ATTESTATION I personally observed the resident performing the E/M, I examined the patient, discussed case with resident and patient, and concur with resident documentation of history, physical assessment and treatment plan unless otherwise noted. Patient and family all feel she is doing extremely well. Significant improvement in gait and in cognition. Managing chronic urinary symptoms and has had no signs or symptoms of infection. She is awake and interactive with fluent speech. Recalls 3/3 objects after 10 minutes. Incisions well-healed without tenderness, redness or swelling. Gait is stable. She is doing well following shunt placement. Will see her back in one year, or sooner with any further questions or concerns. Staff Name: Gordy Duron MD Date: 07/26/2017 * Ward Maya MD - 07/25/2017 11:30 AM CDT Formatting of this note may be different from the original. Neurosurgery Clinic Follow-up Patient Active Problem List Diagnosis Date Noted Urinary frequency 12/02/2016 Hyperlipidemia 12/02/2016 GERD (gastroesophageal reflux disease) 12/02/2016 Normal pressure hydrocephalus 11/22/2016 Overview Note: Added automatically from request for surgery [id number] Leslie Ojeda is a 72-year-old female who is well-known to the neurosurgery service as she had undergone ventriculoperitoneal shunt placement on 12/03/2016. The shunt was initially placed for symptoms of normal pressure hydrocephalus. She since this time is been doing very well she has had vast improvement in her gait mental cognition as well as no increased or worsening difficulty with her previous urinary symptoms which she has some chronic issues that are likely not related to any normal pressure hydrocephalus symptomatology. Most specifically noted as her carrying out her functions of daily living keeping orientation of her tasks as well as conversations with her family members. Her family is present today for the examination and have stated that her gait and stability continue to improve and she is doing well since the initial shunt placement. There have not been any changes to her shunt settings which are still at 6 with an antisiphon. Exam: Awake, alert, oriented 3 out of 3 object recall after 10 minutes Strength 5 out of 5 bilateral upper and lower extremities in all range of motion Gait is normal without assistive device or imbalance Incisions appear well well-healed without breakdown or erythema or tenderness to palpation. Cranial nerves II through XII intact. Assessment/plan: We will plan to see her at 1 year's time for clinic follow-up. We do not need any imaging at this time if she is continuing to do well. If she should have any recurrence of symptoms or any new concerns they will present to the office sooner with CT imaging of the head for evaluation. Please call [phone] with questions or concern Ward Myaa MD in this encounter Plan of Treatment Not on fileas of this encounter Visit Diagnoses Diagnosis Normal pressure hydrocephalus - Primary Idiopathic normal pressure hydrocephalus (INPH) Urinary frequency
--- OUTSIDE RECORDS SUMMARY | 2017-09-26 11:31 | XMS REPORT | Clinical Summary ---
Author Author [facility] Organization [facility] Address Unknown Phone Unavailable Care Team Providers Care Food Order Delivery Runner Name Role Phone Donny Luther MD PCP Source Comments Some departments are not documenting in the electronic medical record. If you do not see the information that you expected, contact Release of Information in the Health Information Management department at [phone] for further assistance in locating additional records.[facility] Allergies Active Allergy Reactions Severity Noted Date Comments Nitrofurantoin RASH Medium 11/22/2016 Monohyd/M-Cryst Current Medications Prescription Sig. Disp. Refills Start End Date Status Date mirabegron(+) ER Take 50 mg by mouth Active (MYRBETRIQ) 50 mg tablet daily. lovastatin(+) (MEVACOR) Take 20 mg by mouth at Active 20 mg tablet bedtime daily. trimethoprim (TRIMPEX) Take 100 mg by mouth Active 100 mg tablet daily. spironolactone Take 100 mg by mouth Active (ALDACTONE) 100 mg tablet daily. Take with food. amitriptyline (ELAVIL) 10 Take 10 mg by mouth at Active mg tablet bedtime daily. famotidine (PEPCID) 20 mg Take 20 mg by mouth daily Active tablet as needed. methocarbamol (ROBAXIN) Take 1 tablet by mouth 30 tablet 0 12/04/19 Active 500 mg tablet three times daily as 17 needed for Spasms. Active Problems Problem Noted Date Urinary frequency 12/02/2016 Hyperlipidemia 12/02/2016 GERD (gastroesophageal reflux disease) 12/02/2016 Normal pressure hydrocephalus 11/22/2016 Overview: Added automatically from request for surgery [id number] Encounters Date Type Specialty Care Team Description 07/25/2017 Office Visit Neurosurgery Ward Maya MD Normal pressure hydrocephalus (Primary Dx); Urinary frequency from Last 3 Months Family History Medical History Relation Name Comments Heart Attack Father Stroke Father Cancer Mother breast Cancer Sister kidney Relation Name Status Comments Father Mother Sister Alive Social History Tobacco Use Types Packs/Day Years Used Date Never Smoker Smokeless Tobacco: Never Used Alcohol Use Drinks/Week oz/Week Comments No Sex Assigned at Date Recorded Not on file Last Filed Vital Signs Vital Sign Reading Time Taken Blood Pressure 147/78 07/25/2017 11:13 AM CDT Pulse 74 07/25/2017 11:13 AM CDT Temperature 37 C (98.6 F) 12/03/2016 10:23 AM CDT Respiratory Rate - - Oxygen Saturation 100% 12/03/2016 10:23 AM CDT Inhaled Oxygen - - Concentration Weight 60.8 kg (134 lb) 07/25/2017 11:13 AM CDT Height 152.4 cm (5') 07/25/2017 11:13 AM CDT Body Mass Index 26.17 07/25/2017 11:13 AM CDT Plan of Treatment Health Maintenance Due Date Last Done Comments HEPATITIS C SCREENING 1944 PHYSICAL (COMPREHENSIVE) 1951 EXAM PERTUSSIS VACCINE 1955 TETANUS VACCINE 1961 BREAST CANCER SCREENING 1984 COLORECTAL CANCER 1994 SCREENING SHINGLES VACCINE 2004 OSTEOPOROSIS SCREENING 2009 PNEUMONIA (PCV13/PPSV23) 2009 VACCINES (1 of 2 - PCV13) INFLUENZA VACCINE 01/15/2018 Implants Implanted Type Area Assistant Statistician Device Expiration Model / Identifier Date Serial / Lot Valve Shunt Certas Plus Siphonguard Right: Sona:JON 05/17/2017 [id number] / Inline Catheter - [id number] Brain and SHURTLEFF [id number] / Implanted: Qty: 1 on 12/02/2016 by [id number] Gordy Duron MD Results Not on filefrom Last 3 Months
[2017-09-26 11:32] VITALS: BP 151/78
--- OUTSIDE RECORDS SUMMARY | 2017-09-26 11:32 | XMS REPORT | Continuity of Care Document ---
Author Author [facility] Organization [facility] Address Unknown Phone Unavailable Allergies Active Description Code Type Severity Reaction Onset Reported/Identified Relationship to Patient Clinical Status Yes ampicillin [id number] Drug Allergy Mild N/A 05/07/2009 Yes codeine [id number] Drug Allergy Mild N/A 05/07/2009 Yes hydrocodone [id number] Drug Allergy Mild N/A 05/07/2009 Yes nitrofurantoin [id number] Drug Allergy Mild N/A 05/07/2009 Yes Sulfa (Sulfonamide Antibiotics) [id number] Drug Allergy Mild N/A 2009 Yes tramadol [id number] Drug Allergy Mild N/A 05/07/2009 Medications There is no data. 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 01/09/2012 Ot V58.69 OTH MED,LT, CURRENT USE 01/09/2012 Ot V76.51 SCREEN MAL NEOP-COLON 07/08/2014 Ot V76.12 07/17/2014 Ot V76.12 06/25/2015 Ot V76.12 06/25/2015 Ot V76.12 06/25/2015 Ot V72.84 06/25/2015 Ot V76.12 06/25/2015 DALILA BOOKER, EDIS Smyth Ot 486 06/25/2015 DALILA BOOKER, EDIS Smyth Ot 780.79 06/25/2015 DALILA BOOKER, EDIS Smyth Ot 786.2 06/25/2015 DALILA BOOKER, EDIS Smyth Ot 719.45 06/25/2015 DALILA BOOKER, EDIS mSyth Ot 729.5 06/25/2015 ALFIE WINKLER DO Ot V70.0 06/25/2015 ALFIE WINKLER DO Ot V76.12 06/25/2015 Ot V76.12 07/21/2015 DALILA BOOKER, EDIS Smyth Ot Z12.31 07/11/2016 Ot V76.12 OTH SCREEN MAMMO-MALIGN NEOPLASM OF JERRELL 07/11/2016 Ot V72.84 EXAM PRE- OPERATIVE NOS 07/11/2016 Ot V76.12 OTH SCREEN MAMMO-MALIGN NEOPLASM OF JERRELL 07/11/2016 EDIS CONNER MD Ot 486 PNEUMONIA, ORGANISM NOS 07/11/2016 EDIS CONNER MD Ot 780.79 OTH MALAISE FATIGUE 07/11/2016 EDIS CONNER MD Ot 786.2 COUGH 07/11/2016 EDIS CONNER MD Ot 719.45 JOINT PAIN-PELVIS 07/11/2016 EDIS CONNER MD Ot 729.5 PAIN IN LIMB 07/11/2016 WINKLER DO ALFIE C Ot V70.0 ROUTINE MEDICAL EXAM 07/11/2016 WINKLER DO ALFIE C Ot V76.12 OTH SCREEN MAMMO-MALIGN NEOPLASM OF JERRELL 07/11/2016 Ot V76.12 OTH SCREEN MAMMO-MALIGN NEOPLASM OF JERRELL 07/11/2016 EDIS CONNER MD Ot Z12.31 ENCNTR SCREEN MAMMOGRAM FOR MALIGNANT NE 07/11/2016 Ot V76.12 OTH SCREEN MAMMO-MALIGN NEOPLASM OF JERRELL 07/11/2016 Ot V72.84 EXAM PRE- OPERATIVE NOS 07/11/2016 Ot V76.12 OTH SCREEN MAMMO-MALIGN NEOPLASM OF JERRELL 07/11/2016 EDIS CONNER MD Ot 486 PNEUMONIA, ORGANISM NOS 07/11/2016 EDIS CONNER MD Ot 780.79 OTH MALAISE FATIGUE 07/11/2016 EDIS CONNER MD Ot 786.2 COUGH 07/11/2016 EDIS CONNER MD Ot 719.45 JOINT PAIN-PELVIS 07/11/2016 EDIS CONNER MD Ot 729.5 PAIN IN LIMB 07/11/2016 WINKLERALFIE Zabala DO C Ot V70.0 ROUTINE MEDICAL EXAM 07/11/2016 WINKLER DO ALFIE C Ot V76.12 OTH SCREEN MAMMO-MALIGN NEOPLASM OF JERRELL 07/11/2016 Ot V76.12 OTH SCREEN MAMMO-MALIGN NEOPLASM OF JERRELL 07/11/2016 EDIS CONNER MD Ot Z12.31 ENCNTR SCREEN MAMMOGRAM FOR MALIGNANT NE 07/11/2016 Ot V76.12 OTH SCREEN MAMMO-MALIGN NEOPLASM OF JERRELL 07/11/2016 Ot V72.84 EXAM PRE- OPERATIVE NOS 07/11/2016 Ot V76.12 OTH SCREEN MAMMO-MALIGN NEOPLASM OF JERRELL 07/11/2016 DALILA BOOKER, EDIS Smyth Ot 486 PNEUMONIA, ORGANISM NOS 07/11/2016 EDIS CONNER MD Ot 780.79 OTH MALAISE FATIGUE 07/11/2016 EDIS CONNER MD Ot 786.2 COUGH 07/11/2016 EDIS CONNER MD Ot 719.45 JOINT PAIN-PELVIS 07/11/2016 EDIS CONNER MD Ot 729.5 PAIN IN LIMB 07/11/2016 WINKLER DO ALFIE C Ot V70.0 ROUTINE MEDICAL EXAM 07/11/2016 WINKLER DO ALFIE C Ot V76.12 OTH SCREEN MAMMO-MALIGN NEOPLASM OF JERRELL 07/11/2016 Ot V76.12 OTH SCREEN MAMMO-MALIGN NEOPLASM OF JERRELL 07/11/2016 EDIS CONNER MD Ot Z12.31 ENCNTR SCREEN MAMMOGRAM FOR MALIGNANT NE 07/11/2016 Ot V76.12 OTH SCREEN MAMMO-MALIGN NEOPLASM OF JERRELL 07/11/2016 Ot V72.84 EXAM PRE- OPERATIVE NOS 07/11/2016 Ot V76.12 OTH SCREEN MAMMO-MALIGN NEOPLASM OF JERRELL 07/11/2016 EDIS CONNER MD Ot 486 PNEUMONIA, ORGANISM NOS 07/11/2016 EDIS CONNER MD Ot 780.79 OTH MALAISE FATIGUE 07/11/2016 EDIS CONNER MD Ot 786.2 COUGH 07/11/2016 EDIS CONNER MD Ot 719.45 JOINT PAIN-PELVIS 07/11/2016 EDIS CONNER MD Ot 729.5 PAIN IN LIMB 07/11/2016 WINKLER DOSAHRAA C Ot V70.0 ROUTINE MEDICAL EXAM 07/11/2016 WINKLER DO ALFIE C Ot V76.12 OTH SCREEN MAMMO-MALIGN NEOPLASM OF [...] 07/12/2016 MATTHEW THOMPSON MD Ot Z79.899 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 THERAPY 07/12/2016 MATTHEW THOMPSON MD [...] 07/12/2016 MATTHEW THOMPSON MD Ot Z79.899 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 THERAPY 07/12/2016 MATTHEW THOMPSON MD [...] Z00.01 ENCOUNTER FOR GENERAL ADULT MEDICAL EXAM 08/08/2016 MATTHEW THOMPSON MD, Ot E78.5 HYPERLIPIDEMIA, UNSPECIFIED 08/08/2016 MATTHEW THOMPSON MD Ot 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 ( 08/08/2016 MATTHEW THOMPSON MD Ot R73.09 OTHER ABNORMAL GLUCOSE 08/08/2016 MATTHEW THOMPSON MD, Ot R94.6 ABNORMAL RESULTS OF THYROID FUNCTION DEVON 08/08/2016 MATTHEW THOMPSON MD, Ot Z00.01 ENCOUNTER FOR GENERAL ADULT MEDICAL EXAM 08/16/2016 MATTHEW THOMPSON MD Ot E87.1 HYPO-OSMOLALITY AND HYPONATREMIA 09/16/2016 MATTHEW THOMPSON MD Ot 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 09/16/2016 MATTHEW THOMPSON MD Ot R26.89 OTHER ABNORMALITIES OF GAIT AND MOBILITY 09/16/2016 MATTHEW THOMPSON MD Ot 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 09/16/2016 MATTHEW THOMPSON MD Ot R26.89 OTHER ABNORMALITIES OF GAIT AND MOBILITY 09/16/2016 MATTHEW THOMPSON MD Ot 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 09/16/2016 MATTHEW THOMPSON MD Ot R26.89 OTHER ABNORMALITIES OF GAIT AND MOBILITY 10/04/2016 MATTHEW THOMPSON MD Ot 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 10/04/2016 MATTHEW THOMPSON MD Ot R26.89 OTHER ABNORMALITIES OF GAIT AND MOBILITY 11/14/2016 MATTHEW THOMPSON MD Ot 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 12/13/2016 MATTHEW THOMPSON MD, Ot 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 12/14/2016 MATTHEW THOMPSON MD Ot 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 02/21/2017 MATTHEW THOMPSON MD Ot Z12.31 ENCNTR SCREEN MAMMOGRAM FOR MALIGNANT NE 02/21/2017 Ot V72.84 EXAM PRE- OPERATIVE NOS 02/21/2017 Ot V76.12 OTH SCREEN MAMMO-MALIGN NEOPLASM OF JERRELL 02/21/2017 EDIS CONNER MD Ot 486 PNEUMONIA, ORGANISM NOS 02/21/2017 DALILA BOOKER, EDIS Smyth Ot 780.79 OTH MALAISE FATIGUE 02/21/2017 EDIS CONNER MD Ot 786.2 COUGH 02/21/2017 EDIS CONNER MD Ot 719.45 JOINT PAIN-PELVIS 02/21/2017 EDIS CONNER MD Ot 729.5 PAIN IN LIMB 02/21/2017 ALFIE WINKLER DO Ot V70.0 ROUTINE MEDICAL EXAM 02/21/2017 WINKLER DO, ALFIE C Ot V76.12 OTH SCREEN MAMMO-MALIGN NEOPLASM OF JERRELL 02/21/2017 Ot V76.12 OTH SCREEN MAMMO-MALIGN NEOPLASM OF JERRELL 02/21/2017 EDIS CONNER MD Ot Z12.31 ENCNTR SCREEN MAMMOGRAM FOR MALIGNANT NE 02/21/2017 MATTHEW THOMPSON MD, Ot E78.5 HYPERLIPIDEMIA, UNSPECIFIED 02/21/2017 MATTHEW THOMPSON MD, Ot 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 ( 02/21/2017 MATTHEW THOMPSON MD, Ot R73.09 OTHER ABNORMAL GLUCOSE 02/21/2017 MATTHEW THOMPSON MD Ot R94.6 ABNORMAL RESULTS OF THYROID FUNCTION DEVON 02/21/2017 MATTHEW THOMPSON MD, Ot Z00.01 ENCOUNTER FOR GENERAL ADULT MEDICAL EXAM 02/21/2017 MATTHEW THOMPSON MD, Ot E87.1 HYPO-OSMOLALITY AND HYPONATREMIA 02/21/2017 MATTHEW THOMPSON MD, Ot 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 02/21/2017 MATTHEW THOMPSON MD, Ot R26.89 OTHER ABNORMALITIES OF GAIT AND MOBILITY 02/21/2017 MATTHEW THOMPSON MD, Ot Z12.31 ENCNTR SCREEN MAMMOGRAM FOR MALIGNANT NE 02/27/2017 MATTHEW THOMPSON MD, Ot Z12.31 ENCNTR SCREEN MAMMOGRAM FOR MALIGNANT NE 03/17/2017 MATTHEW THOMPSON MD, Ot Z12.31 ENCNTR SCREEN MAMMOGRAM FOR MALIGNANT NE Procedures There is no data. Results Test Result Range Bacterial blood culture - 07/11/16 04:57 Bacterial blood culture NG NRG Complete blood count (CBC) with automated white blood cell (WBC) differential - 07/11/16 09:20 Blood leukocytes automated count (number/volume) 7.5 10*3/uL 4.3-11.0 Blood erythrocytes automated count (number/volume) 5.11 10*6/uL 4.35-5.85 Venous blood hemoglobin measurement (mass/volume) 15.2 [...] Automated blood platelet mean volume measurement 9.9 [foz_us] 7.4-10.4 Automated blood neutrophils/100 leukocytes 88 % [...] NRG Blood erythrocyte morphology finding identification NORMAL NR Blood lactic acid measurement (moles/volume) - 07/11/16 09:20 Blood lactic acid measurement (moles/volume) 1.33 mmol/L 0.50-2.00 Comprehensive metabolic panel - 07/11/16 09:20 Serum or plasma sodium measurement (moles/volume) 125 mmol/L 135-145 Serum or plasma potassium measurement (moles/volume) 4.7 mmol/L 3.6-5.0 Serum or plasma chloride measurement (moles/volume) 94 mmol/L 98-107 Carbon dioxide 19 mmol/L 21-32 Serum or plasma anion gap determination (moles/volume) 12 mmol/L 5-14 Serum or plasma urea nitrogen measurement (mass/volume) 24 mg/dL 7-18 Serum or plasma creatinine measurement (mass/volume) 1.17 mg/dL 0.60-1.30 Serum or plasma urea nitrogen/creatinine mass [...] Urine pH measurement by test strip 6 5-9 Specific gravity of urine by test strip 1.010 1.016- 1.022 Urine protein assay by test strip, semi-quantitative [...] Serum or plasma sodium measurement (moles/volume) 133 mmol/L 135-145 Serum or plasma potassium measurement (moles/volume) 4.2 mmol/L 3.6-5.0 Serum or plasma chloride measurement (moles/volume) 102 mmol/L 98-107 Carbon dioxide 23 mmol/L 21-32 Serum or plasma anion gap determination (moles/volume) 8 mmol/L 5-14 Serum or plasma urea nitrogen measurement (mass/volume) 19 mg/dL 7-18 Serum or plasma creatinine measurement (mass/volume) 0.95 mg/dL 0.60-1.30 Serum or plasma urea nitrogen/creatinine mass ratio 20 NRG Serum or plasma creatinine measurement with calculation of estimated glomerular filtration rate 58 NRG Serum or plasma glucose measurement (mass/volume) 105 mg/dL 70-105 Serum or plasma calcium measurement (mass/volume) 8.4 mg/dL 8.5-10.1 Complete blood count (CBC) with automated white blood cell (WBC) differential - 07/12/16 04:50 Blood leukocytes automated count (number/volume) 5.2 10*3/uL 4.3-11.0 Blood erythrocytes automated count (number/volume) 4.48 10*6/uL 4.35-5.85 Venous blood hemoglobin measurement (mass/volume) 13.4 [...] Automated blood platelet mean volume measurement 9.6 [foz_us] 7.4-10.4 Automated blood neutrophils/100 leukocytes 77 % [...] Serum or plasma sodium measurement (moles/volume) 135 mmol/L 135-145 Serum or plasma potassium measurement (moles/volume) 3.9 mmol/L 3.6-5.0 Serum or plasma chloride measurement (moles/volume) 109 mmol/L 98-107 Carbon dioxide 17 mmol/L 21-32 Serum or plasma anion gap determination (moles/volume) 9 mmol/L 5-14 Serum or plasma urea nitrogen measurement (mass/volume) 17 mg/dL 7-18 Serum or plasma creatinine measurement (mass/volume) 0.88 mg/dL 0.60-1.30 Serum or plasma urea nitrogen/creatinine mass [...] 17:28 Blood leukocytes automated count (number/volume) 8.9 10*3/uL 4.3-11.0 Blood erythrocytes automated count (number/volume) 5.38 10*6/uL 4.35-5.85 Venous blood hemoglobin measurement (mass/volume) 16.0 [...] Automated blood platelet mean volume measurement 9.6 [foz_us] 7.4-10.4 Automated blood neutrophils/100 leukocytes 79 % [...] Serum or plasma sodium measurement (moles/volume) 129 mmol/L 135-145 Serum or plasma potassium measurement (moles/volume) 4.2 mmol/L 3.6-5.0 Serum or plasma chloride measurement (moles/volume) 99 mmol/L 98-107 Carbon dioxide 20 mmol/L 21-32 Serum or plasma anion gap determination (moles/volume) 10 mmol/L 5-14 Serum or plasma urea nitrogen measurement (mass/volume) 30 mg/dL 7-18 Serum or plasma creatinine measurement (mass/volume) 1.13 mg/dL 0.60-1.30 Serum or plasma urea nitrogen/creatinine mass ratio 27 NRG Serum or plasma creatinine measurement with calculation of estimated glomerular filtration rate 47 NRG Serum or plasma glucose measurement (mass/volume) 105 mg/dL 70-105 Serum or plasma calcium measurement (mass/volume) 10.9 mg/dL 8.5-10.1 Serum or plasma total bilirubin [...] Serum or plasma phosphate measurement (mass/volume) 4.3 mg/dL 2.3-4.7 Magnesium - 07/15/16 17:28 Magnesium 1.6 mg/dL 1.8-2.4 Lipid 1996 panel - 07/15/16 17:28 Serum or plasma triglyceride measurement (mass/volume) 393 mg/dL <150 Serum or plasma cholesterol measurement (mass/volume) 221 mg/dL < 200 Serum or plasma cholesterol in HDL measurement (mass/volume) 28 mg/ dL 40-60 Cholesterol in LDL [mass/volume] in serum or plasma by direct assay 126 mg/dL 1-129 Serum or plasma cholesterol in VLDL measurement (mass/volume) 79 mg/ dL 5-40 Hemoglobin A1c - 07/15/16 17:28 Hemoglobin A1c 5.7 % 4.5-6.2 Serum or plasma thyrotropin measurement by detection limit <=0.05 miu/l (units/ volume) - 07/15/16 17:28 Serum or plasma thyrotropin measurement by detection limit <=0.05 miu/l (units/ volume) 2.82 u[iU]/mL 0.35-4.94 25-hydroxyvitamin D measurement - 07/15/16 17:28 25-hydroxy vitamin D measurement 22 % 30-100 Comprehensive metabolic panel - 07/26/16 15:13 Serum or plasma sodium measurement (moles/volume) 134 mmol/L 135-145 Serum or plasma potassium measurement (moles/volume) 4.5 mmol/L 3.6-5.0 Serum or plasma chloride measurement (moles/volume) 102 mmol/L 98-107 Carbon dioxide 24 mmol/L 21-32 Serum or plasma anion gap determination (moles/volume) 8 mmol/L 5-14 Serum or plasma urea nitrogen measurement (mass/volume) 21 mg/dL 7-18 Serum or plasma creatinine measurement (mass/volume) 0.89 mg/dL 0.60-1.30 Serum or plasma urea nitrogen/creatinine mass [...] Status Pt. Type Provider Facility Loc./Unit Complaint [id number] 02/24/2017 10:32:00 02/24/2017 23:59:59 CLS Outpatient MATTHEW THOMPSON MD [facility] RAD Z12.31 SCREENING MAMMOGRAM [id number] 11/11/2016 07:56:00 12/14/2016 14:12:00 DIS Outpatient MATTHEW THOMPSON MD [facility] REHAB GAIT TRAINING [id number] 09/13/2016 18:23:00 09/13/2016 23:59:59 CLS Outpatient MATTHEW THOMPSON MD [facility] RAD G91.2 R26.89 [id number] 07/26/2016 15:03:00 07/26/2016 23:59:59 CLS Outpatient MATTHEW THOMPSON MD [facility] LAB E87.1 [id number] 07/15/2016 17:03:00 07/15/2016 23:59:59 CLS Outpatient MATTHEW THOMPSON MD [facility] LAB Z00.01 [id number] 07/11/2016 12:18:00 07/12/2016 09:00:00 DIS Inpatient MATTHEW THOMPSON MD [facility] 4TH HYPONATREMIA VOMITING DEHYDRATION [id number] 06/25/2015 09:25:00 06/25/2015 23:59:59 CLS Outpatient EDIS CONNER MD [facility] RAD SCREENING [id number] 06/18/2013 10:29:00 06/18/2013 23:59:59 CLS Outpatient ALFIE WINKLER DO [facility] RAD SCREENING [id number] 02/14/2013 13:34:00 02/14/2013 23:59:59 CLS Outpatient EDIS CONNER MD [facility] RAD BILATERAL UPPER LEG PAIN [id number] 08/26/2012 13:29:00 08/26/2012 23:59:59 CLS Outpatient [id number] 08/10/2012 11:11:00 08/10/2012 23:59:59 CLS Outpatient EDIS CONNER MD [facility] RAD COUGH,PNEUMONIA,WEAKNESS, MALAISE [id number] 06/25/2015 09:26:00 Document Registration [id number] 06/23/2014 10:57:00 Document Registration [id number] 06/14/2012 10:26:00 Document Registration [id number] 01/09/2012 09:17:00 Document Registration [id number] 01/06/2012 08:14:00 Document Registration [id number] 06/13/2011 08:58:00 Document Registration [id number] 06/10/2010 10:54:00 Document Registration
[2017-09-26] MEDS ORDERED: ceFAZolin INJECTION 1,000 MG in NS (IVPB) 50 ML IV ONE (11:45)
[2017-09-26] MEDS: LACTATED RINGERS 1,000 ML IV PRN ×2 (12:20→13:58)
[2017-09-26] MEDS ORDERED: DEXAMETHASONE 10 MG/ML (DECADRON) 1 ML VIAL ONE (12:30)
[2017-09-26] MEDS ORDERED: proPOfol 200 MG/20 ML (DIPRIVAN) VIAL IV ONE (12:30)
[2017-09-26] MEDS ORDERED: fentaNYL INJECTION 100 MCG/2 ML AMP ONE (12:30)
[2017-09-26] MEDS ORDERED: SEVOFLURANE (ULTANE) 15 ML INHAL SOLN ONE ×6 (12:30→13:59)
[2017-09-26] MEDS ORDERED: ONDANSETRON 4 MG/2 ML (SDV) Z0FRAN ONE (12:30)
[2017-09-26] MEDS ORDERED: LIDOCAINE PF 2% 5 ML (XYLOCAINE) VIAL ONE (12:30)
--- NOTE | 2017-09-26 12:59 | Progress Note-Pre Operative ---
Pre-Operative Progress Note H&P Reviewed The H&P was reviewed, patient examined and no changes noted. Date Seen by Provider: Sep 26, 2017 Time Seen by Provider: 13:10 Date H&P Reviewed: Sep 26, 2017 Time H&P Reviewed: 11:00 Pre-Operative Diagnosis: post menopausal bleeding, cervical stenosis ALFIE WINKLER DO Sep 26, 2017 12:59
[2017-09-26] MEDS ORDERED: KETOROLAC 30 MG/ML VIAL ONE (13:57)
[2017-09-26] MEDS ORDERED: morphine INJ 10 MG/ML 1ML (SYR OR VIAL) IVP PRN (14:00)
[2017-09-26] MEDS ORDERED: ONDANSETRON 4 MG/2 ML (SDV) Z0FRAN IVP PRN (14:00)
--- NOTE | 2017-09-26 14:04 | Operative Report ---
Operative Report Date of Procedure/Surgery Sep 26, 2017 Surgeon (s) ALFIE WINKLER DO Oil Refinery Operator (s): none Post-Operative Diagnosis post menopausal bleeding, cervical stenosis, endometrial mass, possible fibroid Procedure Performed hysteroscopy, dilation and curettage, hysteroscopic truclear biopsy/resection Description of Procedure Anesthesia Type: General Estimated blood loss (mL): minimal Specimen(s) collected/removed endometrial curettings with mass Description of the Procedure With informed consent the patient was taken to the operating room where general anesthesia was found to be adequate. She was prepped and draped in the usual sterile fashion in the dorsolithotomy position. The bladder was drained of clear, yellow urine with a straight cath. I placed a speculum in the vagina and the cervix was grasped with the tenaculum and the cervix was noted to have a stenotic os (this was previously known). I made a small incision with an 11 blade and was able to visualize the os I then gently dilated with the Julito dilators until I was able to insert the hysteroscope. I revealed multiple small intrauterine masses. These appeared smooth but irregular. I would not visualize the upper uterus. I then removed the hysteroscope and inserted the scope with the Turclear and resected the masses. I was then able to remove the entire lesions with the uterine biopsy forceps. I could now visualize the upper uterus and there was old bloody fluid and the upper endometrium appeared within normal. The instruments were removed from the uterus and the vagina. The patient was taken to the operating room in a stable condition. Sponge, needle and instrument counts were correct times two. Findings of the Procedure blood in the uterus, stenotic cervix, several endometrial masses, appeared to be myometrial, or calcified polyps Allergies and Home Medications Allergies Coded Allergies: Sulfa (Sulfonamide Antibiotics) (Unverified Allergy, Mild, 05/07/09) ampicillin (Unverified Allergy, Mild, 05/07/09) nitrofurantoin (Unverified Allergy, Mild, RASH, 09/26/17) codeine (Unverified Adverse Reaction, Mild, NAUSEA, 09/26/17) hydrocodone (Unverified Adverse Reaction, Mild, NAUSEA, 09/26/17) tramadol (Unverified Adverse Reaction, Mild, NAUSEA, 09/26/17) Home Medications Amitriptyline HCl 10 Mg Tablet, 10 MG PO HS, (Reported) Lovastatin 20 Mg Tablet, 20 MG PO HS, (Reported) Medroxyprogesterone Acetate 10 Mg Tablet, 10 MG PO DAILY, (Reported) Mirabegron 50 Mg Tab.er.24h, 50 MG PO DAILY@0700, (Reported) Spironolactone 100 Mg Tablet, 100 MG PO DAILY, (Reported) Trimethoprim 100 Mg Tablet, 100 MG PO DAILY, (Reported) Patient Home Medication List Home Medication List Reviewed: Yes ALFIE WINKLER DO Sep 26, 2017 2:04 pm
[2017-09-26] MEDS ORDERED: ACET-2267 PO (14:07)
[2017-09-26] MEDS ORDERED: IBUP-1773 PO (14:07)
[2017-09-26] MEDS ORDERED: MEDR10TA PO (14:07)
--- NOTE | 2017-09-26 14:09 | Discharge Inst-Women's Service ---
Discharge Inst-Women's Serv Depart Medication/Instructions New, Converted or Re-Newed RX: Transmitted to Pharmacy Instructions use ibuprofen and tylenol for postoperative pain Final Diagnosis endometrial polyp/mass post menopausal bleeding Consults/Follow Up Additional Follow Up: Yes (1 weeks to discuss follow up) Activity Activity: Activity as Tolerated Driving Instructions: No Driving for 24 Hours NO SMOKING: NO SMOKING Nothing Inside Vagina: No Douching, No [facility] [place], No Tampons Diet Discharge Diet: No Restrictions Symptoms to Report to : Bleeding Excessive, Pain Increased, Fever Over 101 Degrees F, Vaginal Bleeding Increase, Vaginal Discharge Foul For Any Problems or Questions: Contact Your Physician ALFIE WINKLER DO Sep 26, 2017 14:09
[2017-09-26] MEDS ORDERED: KETOROLAC 15 MG/ML VIAL IVP ONE (14:15)
--- NOTE | 2017-09-26 14:26 | Anesthesia-General Post-Op ---
General Patient Condition Mental Status/LOC: Same as Preop Cardiovascular: Satisfactory Nausea/Vomiting: Absent Respiratory: Satisfactory Pain: Controlled Complications: Absent Post Op Complications Complications None Follow Up Care/Instructions Patient Instructions None needed. Anesthesia/Patient Condition Patient Condition Patient is doing well, no complaints, stable vital signs, no apparent adverse anesthesia problems. No complications reported per nursing. CASSIA MONTAGUE CRNA Sep 26, 2017 14:26
[2017-09-26 15:05] VITALS: BP 147/89
[2017-09-26 15:35] VITALS: BP 129/64
[2017-09-26 16:10] VITALS: BP 135/79
[2017-09-26 16:37] VITALS: BP 135/79
[2017-10-12] MEDS ORDERED: MEDR10TA9 PO (10:26)
[2017-10-24] MEDS ORDERED: HYDR-34 PO (10:50)
[2017-10-24] MEDS ORDERED: IBUP-844 PO (10:50)
[2017-10-27] MEDS ORDERED: ACET-2267 PO (08:31)
[2017-10-27] MEDS ORDERED: CEPH-507 PO (08:31)
== END 2017-09-26 16:37 | disposition home or self-care (01) ==
LOC: SDC 11:28
PROVIDERS: ATTEND Obstetrics & Gynecology
DX: N95.0 Postmenopausal bleeding (principal); D25.9 Leiomyoma of uterus, unspecified; N88.2 Stricture and stenosis of cervix uteri; I10 Essential (primary) hypertension; Z98.2 Presence of cerebrospinal fluid drainage device; Z79.899 Other long term (current) drug therapy
CPT/HCPCS: 87081; 88305; 94664

== ENCOUNTER 2017-10-24 06:00 | Day surgery (SDC) | payer MEDICARE, OTHER ==
[~2017-10-24] VITALS: Ht 152.4 cm; Wt 61.2 kg
[2017-10-24 06:00] VITALS: BP 145/81
[~2017-10-24 06:00] MED LIST changes: +ACET-2267 PO; +IBUP-1773 PO; +MEDR10TA PO; +MEDR10TA9 PO
--- OUTSIDE RECORDS SUMMARY | 2017-10-24 06:09 | XMS REPORT | Clinical Summary ---
Author Author [facility] Organization [facility] Address Unknown Phone Unavailable Care Team Providers Care Intellectual Property Manager Name Role Phone Donny Luther MD PCP Source Comments Some departments are not documenting in the electronic medical record. If you do not see the information that you expected, contact Release of Information in the Health Information Management department at [phone] for further assistance in locating additional records.[facility] Allergies Active Allergy Reactions Severity Noted [...] Overview: Added automatically from request for surgery [id number] Encounters Date Type Specialty Care Team Description [...] SCREENING 1984 COLORECTAL CANCER 1994 SCREENING SHINGLES RECOMBINANT 1994 VACCINE (1 of 2) OSTEOPOROSIS SCREENING 2009 PNEUMONIA (PCV13/PPSV23) 2009 VACCINES (1 of 2 - PCV13) INFLUENZA VACCINE 01/15/2018 Implants Implanted Type Area Application Project Leader Device Expiration Model / Identifier Date Serial / Lot Valve Shunt Certas Plus Siphonguard Right: Sona:JON 05/17/2017 [id number] / Inline Catheter - [id number] Brain and SHURTLEFF [id number] / Implanted: Qty: 1 on 12/02/2016 by [id number] Gordy Duron MD Results Not on filefrom Last 3 Months
--- OUTSIDE RECORDS SUMMARY | 2017-10-24 06:09 | XMS REPORT | Encounter Summary ---
Author Author [facility] Organization [facility] Address Unknown Phone Unavailable Care Team Providers Care Macaroni Maker Name Role Phone Donny Luther MD PCP Reason for Visit * Reason Comments Other Encounter Details Date Type Department Care Team Description 07/25/2017 Office Visit [facility] Ward Maya MD Normal pressure Physicians - Neurosurgery [address] [place] hydrocephalus (Primary [address]LO[address] Dx); [address] [place] [address] Urinary frequency OFFICE [facility]LDG [phone] [place] [address] Social History Tobacco Use Types [...] Name: Gordy Duron MD Date: 07/26/2017 * aWrd Maya MD - 07/25/2017 11:30 AM CDT Formatting of this note may be different from the original. Neurosurgery Clinic Follow-up Patient Active Problem List Diagnosis Date Noted Urinary frequency 12/02/2016 Hyperlipidemia 12/02/2016 GERD (gastroesophageal reflux disease) 12/02/2016 Normal pressure hydrocephalus 11/22/2016 Overview Note: Added automatically from request for surgery [id number] Leslie Ojeda is a 72-year-old female who [...] of the head for evaluation. Please call [phone] with questions or concern Ward Maya MD in this encounter Plan of Treatment Not on fileas of this encounter Visit Diagnoses Diagnosis Normal pressure hydrocephalus - Primary Idiopathic normal pressure hydrocephalus (INPH) Urinary frequency
[2017-10-24] MEDS: LACTATED RINGERS 1,000 ML IV PRN ×3 (06:25→10:32)
[2017-10-24] MEDS ORDERED: ONDANSETRON 4 MG/2 ML (SDV) Z0FRAN ONE ×2 (06:37→11:00)
[2017-10-24] MEDS ORDERED: DEXAMETHASONE 10 MG/ML (DECADRON) 1 ML VIAL ONE (06:37)
[2017-10-24] MEDS ORDERED: proPOfol 200 MG/20 ML (DIPRIVAN) VIAL IV ONE (06:37)
[2017-10-24] MEDS ORDERED: LIDOCAINE PF 2% 5 ML (XYLOCAINE) VIAL ONE (06:37)
[2017-10-24] MEDS ORDERED: MIDAZOLAM 2 MG/2 ML (VERSED) VIAL ONE (06:37)
[2017-10-24] MEDS ORDERED: ROCURONIUM 10 MG/ML 5 ML SYRINGE IV ONE ×2 (06:37→09:44)
[2017-10-24] MEDS ORDERED: fentaNYL INJECTION 100 MCG/2 ML AMP ONE (06:38)
[2017-10-24] MEDS ORDERED: SEVOFLURANE (ULTANE) 15 ML INHAL SOLN ONE ×7 (06:46→10:51)
[2017-10-24] MEDS ORDERED: metroNIDAZOLE 500MG/100ML IVPB 100 ML IV ONE (07:00)
[2017-10-24] MEDS ORDERED: ceFAZolin INJECTION 1,000 MG in NS (IVPB) 50 ML IV ONE (07:00)
[2017-10-24] MEDS ORDERED: ceFAZolin 1 GM/NS 50 ML IVPB IV ONE ×2 (07:00)
[2017-10-24] MEDS ORDERED: metroNIDAZOLE 500 MG/100 ML IVPB (PRE-MIX) IV ONE (07:00)
[2017-10-24] MEDS ORDERED: BUP/EPI 0.5% 1:200,000 (SENSORCAINE) 30 ML VIAL ONE (07:13)
--- NOTE | 2017-10-24 07:49 | Progress Note-Pre Operative ---
Pre-Operative Progress Note H&P Reviewed The H&P was reviewed, patient examined and no changes noted. Date Seen by Provider: Oct 24, 2017 Time Seen by Provider: 07:30 Date H&P Reviewed: Oct 24, 2017 Time H&P Reviewed: 07:25 Pre-Operative Diagnosis: post menopausal bleeding, uterine fibroids. ALFIE WINKLER DO Oct 24, 2017 07:49
[2017-10-24] MEDS ORDERED: NEOSTIGMINE 1 MG/ML 5 ML SYRINGE ONE (10:34)
[2017-10-24] MEDS ORDERED: GLYCOPYRROLATE 0.2 MG/ML (ROBINUL) 2 ML VIAL ONE (10:34)
[2017-10-24] MEDS ORDERED: SIMETHICONE 80 MG (MYLICON) CHEW PO PRN (10:45)
[2017-10-24] MEDS ORDERED: ONDANSETRON 4 MG/2 ML (SDV) Z0FRAN IV PRN (10:45)
[2017-10-24] MEDS ORDERED: DOCUSATE SODIUM 100 MG (COLACE) CAP PO PRN (10:45)
[2017-10-24] MEDS ORDERED: ANTACID SUSP 30 ML UDC (MYLANTA) PO PRN (10:45)
[2017-10-24] MEDS ORDERED: HYDROcodone/APAP 7.5 MG/325 MG (LORTAB, LORCET PLUS) TABLET PO PRN (10:45)
--- NOTE | 2017-10-24 10:47 | Operative Report ---
Operative Report Date of Procedure/Surgery Oct 24, 2017 Surgeon (s) ALFIE WINKLER DO Hide Sorter (s): Mamta Calvni APRN; asst nec to retract important neurovascular structures and Post-Operative Diagnosis uterine fibroids, postmenopausal bleeding, very extensive adhesions Procedure Performed RaTH, BSO; extensive hui (greater than 30 minutes) Description of Procedure Anesthesia Type: General Estimated blood loss (mL): 150 Specimen(s) collected/removed uterus, tubes and ovaries Description of the Procedure After informed consent was obtained, patient was taken into the operating room where general anesthetic was found to be adequate. She was prepped and draped in the usual sterile fashion in the dorsal lithotomy position. A Finn catheter was placed. A speculum was placed in the vagina. The cervix was visualized and was prolapsed to the introitus. The anterior lip was grasped with a sharp toothed tenaculum. The uterus was sounded and depth was approximately centimeters. I placed the Gretel device. And then set the Gretel to 8 cm and a 3.0 cm collar was advanced over the cervix. I inserted the Gretel without difficulty, inflating the balloon and securing it around the fornix of the cervix. The collar was then secured with sutures at 12 o'clock. Attention was then turned to the patient's abdomen. A supraumbilical incision was made about 8 mm. A Veress needle was inserted and I confirmed intraabdominal placement with a drop in pressure and the saline drop test. I then insufflated the abdomen to a maximum of 15 mmHg with warmed CO2 gas. I then placed an 8 mm trocar and then the Da Horace camera and intraperitoneal placement was confirmed. I then determined the procedure could be continued robotically. However, I knew that I could not perform this without taking down the adhesions. Then I placed a right upper quadrant incision and trocar. The first robotic port was placed about 15 cm lateral to the right and left of the umbilical placement and slightly inferior. These are both 8 mm trocars. These were placed under direct visualization of the laparoscope. 0.25% Marcaine was injected prior to placement of all trocars. When all placements were confirmed, the patient was placed in steep Trendelenburg allowing adequate visualization and the robot was brought in for docking. The docking was accomplished without difficulty. A survey of the pelvis confirmed the above mentioned findings. I now took down the adhesions with the jai and blunt excision. There was good hemostasis. When I was able to visualize the round ligaments bilaterally and grasped them and cauterized with bipolar cautery and then cut with my jai. At this point , I then did bilateral salpingophrectomy I grasped the infundibulopelvic ligaments bilaterally. Transected and incised with the monopolar cautery and jai. I then moved my dissection to the posterior leaves of the broad ligament. I dissected the posterior leaves of the broad ligament off the uterine arteries skeletonizing them bilaterally. I then took a second clamp with the bipolar cautery and with the jai, transected the vessels away from the lateral aspect to the cervical stroma. I dissected the anterior peritoneum off the lower uterine segment. I continually pushed the bladder back and I took excessively great care and I was eventually able to dissect the vesicouterine peritoneum off the lower uterine segment. There was good hemostasis. despite the dissection and the adhesions, I was able to see the ureters bilaterally and these were peristalsing. I then dissected in a V fashion towards the midline between the uterosacral ligaments. This allowed me to skeletonize the uterine vessels bilaterally. The balloon on the GRETEL was insufflated. This allowed me to see the GRETEL circumferentially. I then performed a colpotomy anteriorly and then amputate with cervix away from the vaginal fornix. I then continued the colpotomy circumferentially. Once this was performed, the facility assistant removed the uterus through the vagina. A sponge was left in the vagina to maintain pneumoperitoneum. I then began closure of the vaginal cuff. I closed the apices of the vaginal cuff with 2-0 Vicryl V lock sutures with a colposuspension through the uterosacral ligaments. This suspended the apices of the vaginal cuff. I extended this to the midline from both sides and overlapped the V lock sutures in the midline. Excellent closure is noted and hemostasis is achieved. All the needles were removed from the patient's abdomen. The fascial incisions were closed with 0-Vicryl and the skin with 4-0 Monocryl in a subcuticular fashion and then [place] was placed. Bandages were placed. Patient was awakened and taken to the recovery room in stable condition. Following the case, instrument counts were correct. The patient was repositioned in the supine position and awakened from general anesthesia without difficulty. She was taken to recovery in stable condition. Ancef and Flagyl were given preoperatively. SCD s were used for DVT prophylaxis. She will be monitored and discharge once discharge goals are met. Findings of the Procedure small uterus, multiple submucosal and subserosal fibroid, small and calcified Very extensive adhesions of the omentum and the bowel to the lower abdomen up to the umbilicus. Some were denser and some more filmy. these were adherent to the umbilicus and obscured the lower pelvic area. I had to take these down prior to being able to perform the hysterectomy. The bowel was involved but not injured There was good hemostasis. atrophic ovaries and tubes. Allergies and Home Medications Allergies Coded Allergies: Sulfa (Sulfonamide Antibiotics) (Unverified Allergy, Mild, 05/07/09) ampicillin (Unverified Allergy, Mild, 05/07/09) nitrofurantoin (Unverified Allergy, Mild, RASH, 09/26/17) codeine (Unverified Adverse Reaction, Mild, NAUSEA, 09/26/17) hydrocodone (Unverified Adverse Reaction, Mild, NAUSEA, 09/26/17) tramadol (Unverified Adverse Reaction, Mild, NAUSEA, 09/26/17) Home Medications Acetaminophen 500 Mg Tablet, 1,000 MG PO Q6H Prescribed by: ALFIE WINKLER on 10/27/17830 Amitriptyline HCl 10 Mg Tablet, 10 MG PO HS, (Reported) Cephalexin 500 Mg Capsule, 500 MG PO TID Prescribed by: ALFIE WINKLER on 10/27/17 08 Lovastatin 20 Mg Tablet, 20 MG PO HS, (Reported) Mirabegron 50 Mg Tab.er.24h, 50 MG PO DAILY, (Reported) Spironolactone 100 Mg Tablet, 100 MG PO DAILY, (Reported) Trimethoprim 100 Mg Tablet, 100 MG PO DAILY, (Reported) Patient Home Medication List Home Medication List Reviewed: Yes ALFIE WINKLER DO Oct 24, 2017 10:47
[2017-10-24] MEDS ORDERED: IBUP-844 PO (10:50)
[2017-10-24] MEDS ORDERED: HYDR-34 PO (10:50)
--- NOTE | 2017-10-24 10:52 | Discharge Inst-Women's Service ---
Discharge Inst-Women's Serv Depart Medication/Instructions New, Converted or Re-Newed RX: RX on Chart Instructions expect vaginal spotting/bleeding for up to 2 weeks. Resume all meds except medroxyprogesterone. Final Diagnosis uterine fibroids, postmenopausal bleeding extensive adhesions Consults/Follow Up Additional Follow Up: Yes (1 week with SHANA/ 10-12 weeks with Ray) Activity Activity: Activity as Tolerated Driving Instructions: No Driving for 1 Week NO SMOKING: NO SMOKING Nothing Inside Vagina: No Douching, No [place], No Tampons Diet Discharge Diet: No Restrictions Symptoms to Report to DrNorm: Bleeding Excessive, Pain Increased, Fever Over 101 Degrees F, Vaginal Bleeding Increase, Vaginal Discharge Foul For Any Problems or Questions: Contact Your Physician Skin/Wound Care Infection Signs and Symptoms: Increased Redness, Foul Odor of Wound, Increased Drainage, Skin Itchy or Has a Rash, Increased Swelling, Temperature Above 101 F Operative Area Clean and Dry: Do Not Remove Bandage (May remove after 3 days or if soiled/wet may remove and replace and then uncover after 3 days. ), Keep Incision Clean/Dry Stitches/[place]/Dermabond: Dermabond Bathing Instructions: ALFIE La DO Oct 24, 2017 10:52
[2017-10-24] MEDS ORDERED: morphine INJ 10 MG/ML 1ML (SYR OR VIAL) ONE (11:00)
[2017-10-24] MEDS ORDERED: KETOROLAC 30 MG/ML VIAL ONE (11:00)
[2017-10-24] MEDS ORDERED: ONDANSETRON 4 MG/2 ML (SDV) Z0FRAN IVP PRN (11:00)
[2017-10-24] MEDS ORDERED: HYDROmorphone 1 MG/ML (DILAUDID) 1 ML SYRINGE IV PRN (11:00)
[2017-10-24] MEDS: KETOROLAC 30 MG/ML VIAL IV PRN ×2 (11:05→18:44)
[2017-10-24] MEDS: morphine INJ 10 MG/ML 1ML (SYR OR VIAL) IVP PRN ×2 (11:12→11:19)
[2017-10-24] MEDS ORDERED: MEPERIDINE (DEMEROL) INJ 50 MG/ML ONE (11:22)
[2017-10-24] MEDS ORDERED: MEPERIDINE (DEMEROL) INJ 50 MG/ML IVP PRN (11:45)
[2017-10-24 12:15] VITALS: BP 125/62
[2017-10-24 13:40] VITALS: BP 125/62
[2017-10-24] MEDS: LACTATED RINGERS 1,000 ML IV SCH ×3 (13:45→20:11)
[2017-10-24 16:00] VITALS: BP 139/72
[2017-10-24] MEDS ORDERED: FUROSEMIDE 40 MG/4 ML INJ (LASIX) IVP NR (17:15)
[2017-10-24 20:11] VITALS: BP 114/63
[2017-10-25] MEDS ORDERED: IBUPROFEN 600 MG (MOTRIN) TAB PO PRN (03:15)
[2017-10-25] MEDS ORDERED: IBUP-1773 (19:27)
[2017-10-25] MEDS ORDERED: MEDR10TA (19:27)
== END 2017-10-24 21:25 | disposition home or self-care (01) ==
LOC: SDC 06:00 → WS 12:24 → SDC 21:25
PROVIDERS: ATTEND Obstetrics & Gynecology
DX: N95.0 Postmenopausal bleeding (principal); D25.1 Intramural leiomyoma of uterus; N83.201 Unspecified ovarian cyst, right side; I10 Essential (primary) hypertension; Z79.899 Other long term (current) drug therapy; Z98.2 Presence of cerebrospinal fluid drainage device
CPT/HCPCS: 36415; 86850; 86900; 86901; 94664

== ENCOUNTER 2017-10-25 18:06 | Observation (INO) | payer MEDICARE, OTHER ==
[~2017-10-25] VITALS: Ht 152.4 cm; Wt 59.0 kg
[~2017-10-25 18:06] MED LIST changes: +HYDR-34 PO; +IBUP-844 PO
--- OUTSIDE RECORDS SUMMARY | 2017-10-25 18:13 | XMS REPORT | Clinical Summary ---
Author Author [facility] Organization [facility] Address Unknown Phone Unavailable Care Team Providers Care [employer] Service Management Teacher Name Role Phone Donny Luther MD PCP Source Comments Some departments are not documenting in the electronic medical record. If you do not see the information that you expected, contact Release of Information in the Health Information Management department at [phone] for further assistance in locating additional records.[facility] Allergies Active Allergy Reactions Severity Noted [...] Overview: Added automatically from request for surgery [id number] Family History Medical History Relation Name Comments [...] INFLUENZA VACCINE 01/15/2018 Implants Implanted Type Area Living Supervisor Device Expiration Model / Identifier Date Serial / Lot Valve Shunt Certas Plus Siphonguard Right: Sona:JON 05/17/2017 [id number] / Inline Catheter - [id number] Brain and SHURTLEFF [id number] / Implanted: Qty: 1 on 12/02/2016 by [id number] Gordy Duron MD Results Not on filefrom Last 3 Months
--- OUTSIDE RECORDS SUMMARY | 2017-10-25 18:14 | XMS REPORT | Continuity of Care Document ---
Author Author [facility] Organization [facility] Address Unknown Phone Unavailable Allergies Active Description Code Type Severity Reaction Onset Reported/Identified Relationship to Patient Clinical Status Yes ampicillin [id number] Drug Allergy Mild N/A 05/07/2009 Yes codeine [id number] Drug Allergy Mild N/A 05/07/2009 Yes hydrocodone [id number] Drug Allergy Mild N/A 05/07/2009 Yes nitrofurantoin [id number] Drug Allergy Mild N/A 05/07/2009 Yes Sulfa (Sulfonamide Antibiotics) [id number] Drug Allergy Mild N/A 2009 Yes tramadol [id number] Drug Allergy Mild N/A 05/07/2009 Yes codeine [id number] Drug Allergy Mild NAUSEA 09/26/2017 Yes hydrocodone [id number] Drug Allergy Mild NAUSEA 09/26/2017 Yes nitrofurantoin [id number] Drug Allergy Mild RASH 09/26/2017 Yes tramadol [id number] Drug Allergy Mild NAUSEA 09/26/2017 Medications There is no data. 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 01/09/2012 Ot V58.69 OT MED,LT, CURRENT USE 01/09/2012 Ot V76.51 SCREEN MAL NEOP-COLON 07/08/2014 Ot V76.12 07/17/2014 Ot V76.12 06/25/2015 Ot V76.12 06/25/2015 Ot V76.12 06/25/2015 Ot V72.84 06/25/2015 Ot V76.12 06/25/2015 DALILA BOOKER, EDIS Smyth Ot 486 06/25/2015 DALILA BOOKER, EDIS Smyth Ot 780.79 06/25/2015 EDIS CONNER MD Ot 786.2 06/25/2015 DALILA BOOKER, EDIS Smyth Ot 719.45 06/25/2015 EDIS CONNER MD Ot 729.5 06/25/2015 ALFIE WINKLER DO Ot V70.0 06/25/2015 ALFIE WINKLER DO C Ot V76.12 06/25/2015 Ot V76.12 07/21/2015 DALILA BOOKER, EDIS Smyth Ot Z12.31 07/11/2016 Ot V76.12 OTH SCREEN MAMMO-MALIGN NEOPLASM OF JERRELL 07/11/2016 Ot V72.84 EXAM PRE- OPERATIVE NOS 07/11/2016 Ot V76.12 OTH SCREEN MAMMO-MALIGN NEOPLASM OF JERRELL 07/11/2016 DALILA BOOKER, EDIS Smyth Ot 486 PNEUMONIA, ORGANISM NOS 07/11/2016 DALILA BOOKER, EDIS Smyth Ot 780.79 OTH MALAISE FATIGUE 07/11/2016 EDIS [...] JERRELL 07/11/2016 DALILA BOOKER, EDIS Smyth Ot Z12.31 ENCNTR SCREEN MAMMOGRAM FOR MALIGNANT [...] MD Ot 729.5 PAIN IN LIMB 07/11/2016 CATHI DO ALFIE C Ot V70.0 ROUTINE MEDICAL EXAM 07/11/2016 SAHRA WINKLER DOA C Ot V76.12 OTH SCREEN MAMMO-MALIGN NEOPLASM [...] 07/12/2016 MATTHEW THOMPSON MD Ot Z79.899 OTHER [facility] (CURRENT) DRUG THERAPY 07/12/2016 MATTHEW THOMPSON MD Ot Z91.81 HISTORY OF FALLING 07/12/2016 MATTHEW THOMPSON MD, Ot E83.42 HYPOMAGNESEMIA 07/12/2016 MATTHEW THOMPSON MD [...] 07/12/2016 MATTHEW THOMPSON MD Ot Z79.899 OTHER PARK LANDSCAPE ARCHITECT (CURRENT) DRUG THERAPY 07/12/2016 MATTHEW THOMPSON MD Ot Z91.81 HISTORY OF FALLING 07/21/2016 MATTHEW THOMPSON MD Ot E78.5 HYPERLIPIDEMIA, UNSPECIFIED 07/21/2016 MATTHEW THOMPSON MD, Ot 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 ( 07/21/2016 MATTHEW THOMPSON MD Ot R73.09 OTHER ABNORMAL GLUCOSE 07/21/2016 MATTHEW THOMPSON MD Ot R94.6 ABNORMAL RESULTS OF THYROID FUNCTION DEVON 07/21/2016 MATTHEW THOMPSON MD, Ot Z00.01 ENCOUNTER FOR GENERAL ADULT MEDICAL EXAM 08/08/2016 MATTHEW THOMPSON MD Ot E78.5 HYPERLIPIDEMIA, UNSPECIFIED 08/08/2016 MATTHEW THOMPSON MD, Ot 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 ( 08/08/2016 MATTHEW THOMPSON MD Ot R73.09 OTHER ABNORMAL GLUCOSE 08/08/2016 MATTHEW THOMPSON MD Ot R94.6 ABNORMAL RESULTS OF THYROID FUNCTION DEVON 08/08/2016 MATTHEW THOMPSON MD, Ot Z00.01 ENCOUNTER FOR GENERAL ADULT MEDICAL EXAM 08/16/2016 MATTHEW THOMPSON MD, Ot E87.1 HYPO-OSMOLALITY AND HYPONATREMIA 09/16/2016 MATTHEW [...] OF GAIT AND MOBILITY 10/04/2016 MATTHEW THOMPSON MD, Ot 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 10/04/2016 MATTHEW THOMPSON MD Ot R26.89 OTHER ABNORMALITIES OF GAIT AND MOBILITY 11/14/2016 MATTHEW THOMPSON MD Ot 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 12/13/2016 MATTHEW THOMPSON MD Ot 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 12/14/2016 MATTHEW THOMPSON MD Ot 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 02/21/2017 MATTHEW THOMPSON MD Ot Z12.31 ENCNTR SCREEN MAMMOGRAM FOR MALIGNANT NE 02/21/2017 Ot V72.84 EXAM PRE- OPERATIVE NOS 02/21/2017 Ot V76.12 OTH SCREEN MAMMO-MALIGN NEOPLASM OF JERRELL 02/21/2017 EDIS CONNER MD Ot 486 PNEUMONIA, ORGANISM NOS 02/21/2017 EDIS CONNER MD Ot 780.79 OTH MALAISE FATIGUE 02/21/2017 EDIS CONNER MD Ot 786.2 COUGH 02/21/2017 DALILA BOOKER, EDIS Smyth Ot 719.45 JOINT PAIN-PELVIS 02/21/2017 EDIS CONNER MD Ot 729.5 PAIN IN LIMB 02/21/2017 ALFIE WINKLER DO Ot V70.0 ROUTINE MEDICAL EXAM 02/21/2017 ALFIE WINKLER DO Ot V76.12 OTH SCREEN MAMMO-MALIGN NEOPLASM OF JERRELL 02/21/2017 Ot V76.12 OTH SCREEN MAMMO-MALIGN NEOPLASM OF JERRELL 02/21/2017 EDIS CONNER MD Ot Z12.31 ENCNTR SCREEN MAMMOGRAM FOR MALIGNANT NE 02/21/2017 MATTHEW THOMPSON MD Ot E78.5 HYPERLIPIDEMIA, UNSPECIFIED 02/21/2017 MATTHEW THOMPSON MD Ot 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 ( 02/21/2017 MATTHEW THOMPSON MD Ot R73.09 OTHER ABNORMAL GLUCOSE 02/21/2017 MATTHEW THOMPSON MD Ot R94.6 ABNORMAL RESULTS OF THYROID FUNCTION DEVON 02/21/2017 MATTHEW THOMPSON MD Ot Z00.01 ENCOUNTER FOR GENERAL ADULT MEDICAL EXAM 02/21/2017 MATTHEW THOMPSON MD Ot E87.1 HYPO-OSMOLALITY AND HYPONATREMIA 02/21/2017 MATTHEW THOMPSON MD Ot 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 02/21/2017 MATTHEW THOMPSON MD Ot R26.89 OTHER ABNORMALITIES OF GAIT AND MOBILITY 02/21/2017 MATTHEW THOMPSON MD Ot Z12.31 ENCNTR SCREEN MAMMOGRAM FOR MALIGNANT NE 02/27/2017 MATTHEW THOMPSON MD Ot Z12.31 ENCNTR SCREEN MAMMOGRAM FOR MALIGNANT NE 03/17/2017 MATTHEW THOMPSON MD Ot Z12.31 ENCNTR SCREEN MAMMOGRAM FOR MALIGNANT NE 09/25/2017 ALFIE WINKLER DO Ot N95.0 POSTMENOPAUSAL BLEEDING 09/25/2017 ALFIE WINKLER DO Ot Z01.818 ENCOUNTER FOR OTHER PREPROCEDURAL EXAMIN 09/26/2017 ALFIE WINKLER DO Ot D25.9 LEIOMYOMA OF UTERUS, UNSPECIFIED 09/26/2017 ALFIE WINKLER DO Ot I10 ESSENTIAL (PRIMARY) HYPERTENSION 09/26/2017 ALFIE WINKLER DO Ot N95.0 POSTMENOPAUSAL BLEEDING 09/26/2017 ALFIE WINKLER DO Ot Z79.899 OTHER PARK LANDSCAPE ARCHITECT (CURRENT) DRUG THERAPY 09/26/2017 WINKLER DO, ALFIE C Ot Z98.2 PRESENCE OF CEREBROSPINAL FLUID DRAINAGE 09/27/2017 WINKLER DO, ALFIE C Ot N95.0 POSTMENOPAUSAL BLEEDING 09/27/2017 CATHI REDMOND ALFIE C Ot Z01.818 ENCOUNTER FOR OTHER PREPROCEDURAL EXAMIN 10/13/2017 ALFIE WINKLER DO C Ot D25.9 LEIOMYOMA OF UTERUS, UNSPECIFIED 10/13/2017 ALFIE WINKLER DO C Ot Z01.812 ENCOUNTER FOR PREPROCEDURAL LABORATORY E 10/13/2017 SAHRA WINKLER DOA C Ot Z11.2 ENCOUNTER FOR SCREENING FOR OTHER BACTER 10/17/2017 SAHRA WINKLER DOA C Ot D25.9 LEIOMYOMA OF UTERUS, UNSPECIFIED 10/17/2017 CATHI DO, ALFIE C Ot I10 ESSENTIAL (PRIMARY) HYPERTENSION 10/17/2017 WINKLER DO, ALFIE C Ot 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 10/17/2017 WINKLER DO, ALFIE C Ot N95.0 POSTMENOPAUSAL BLEEDING 10/17/2017 CATHI DO ALFIE C Ot Z79.899 OTHER [facility] (CURRENT) DRUG THERAPY 10/17/2017 CATHI DO, ALFIE C Ot Z98.2 PRESENCE OF CEREBROSPINAL FLUID DRAINAGE 10/17/2017 ALFIE WINKLER DO C Ot D25.9 LEIOMYOMA OF UTERUS, UNSPECIFIED 10/17/2017 WINKLER DO, ALFIE C Ot I10 ESSENTIAL (PRIMARY) HYPERTENSION 10/17/2017 WINKLER DO, ALFIE C Ot 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 Results Test [...] plasma albumin measurement (mass/volume) 3.6 g/dL 3.2-4.5 Methicillin resistant Staphylococcus aureus (MRSA) screening culture - 12:20 Methicillin resistant Staphylococcus aureus (MRSA) screening culture NEG NRG Complete blood count (CBC) with automated white blood cell (WBC) differential - 10/12/17 10:30 Blood leukocytes automated count (number/volume) 6.4 10*3/uL 4.3-11.0 Blood erythrocytes automated count (number/volume) 4.77 10*6/uL 4.35-5.85 Venous blood hemoglobin measurement (mass/volume) 15.0 g/dL 11.5-16.0 Blood hematocrit (volume fraction) 43 % 35-52 Automated erythrocyte mean corpuscular volume 90 [foz_us] 80-99 Automated erythrocyte mean corpuscular hemoglobin (mass per erythrocyte) 31 pg 25-34 Automated erythrocyte mean corpuscular hemoglobin concentration measurement ( mass/volume) 35 g/dL 32-36 Automated erythrocyte distribution width ratio 13.3 % 10.0-14.5 Automated blood platelet count (count/volume) 272 10*3/uL 130-400 Automated blood platelet mean volume measurement 9.8 [foz_us] 7.4-10.4 Automated blood neutrophils/100 leukocytes 74 % 42-75 Automated blood lymphocytes/100 leukocytes 14 % 12-44 Blood monocytes/100 leukocytes 9 % 0-12 Automated blood eosinophils/100 leukocytes 2 % 0-10 Automated blood basophils/100 leukocytes 1 % 0-10 Blood neutrophils automated count (number/volume) 4.8 10*3 1.8-7.8 Blood lymphocytes automated count (number/volume) 0.9 10*3 1.0-4.0 Blood monocytes automated count (number/volume) 0.6 10*3 0.0-1.0 Automated eosinophil count 0.2 10*3/uL 0.0-0.3 Automated blood basophil count (count/volume) 0.0 10*3/uL 0.0-0.1 Blood type T Indirect antibody screen panel - 10/12/17 10:30 ABO+Rh group OP NRG Blood group antibody screen NEGATIVE NRG Methicillin resistant Staphylococcus aureus (MRSA) screening culture - 10:30 Methicillin resistant Staphylococcus aureus (MRSA) screening culture NEG NRG Complete urinalysis with reflex to culture - 10/12/17 10:40 Urine color determination YELLOW NRG Urine clarity determination CLEAR NRG Urine pH measurement by test strip 6.5 5-9 Specific gravity of urine by test strip 1.010 1.016- 1.022 Urine protein assay by test strip, semi-quantitative NEGATIVE NEGATIVE Urine glucose detection by automated test strip NEGATIVE NEGATIVE Erythrocytes detection in urine sediment by light microscopy NEGATIVE NEGATIVE Urine ketones detection by automated test strip NEGATIVE NEGATIVE Urine nitrite detection by test strip [...] detection in urine sediment by light microscopy 0-2 NRG Crystals detection in urine sediment by light microscopy NONE NRG Casts detection in urine sediment by light microscopy NONE NRG Mucus detection in urine sediment by light microscopy SMALL NRG Complete urinalysis with reflex to culture NO NRG Renal epithelial cells detection in urine sediment by light microscopy RARE NRG Blood type T Indirect antibody screen panel - 10/24/17 06:25 ABO+Rh group OP NRG Transfusion band number [id number] NRG Blood group antibody screen NEGATIVE NRG Encounters ACCT No. Visit Date/Time Discharge Status Pt. Type Provider Facility Loc./Unit Complaint [id number] 10/24/2017 06:00:00 10/24/2017 21:25:00 DIS Outpatient ALFIE WINKLER DO [facility] POST MENOPAUSAL BLEEDING , UTERINE FIBROID [id number] 10/12/2017 10:04:00 10/12/2017 10:50:00 DIS Outpatient ALFIE WINKLER DO [facility] PREOP ROBOTIC ASSIST. TOTAL HYST, BSO [id number] 09/26/2017 11:28:00 09/26/2017 16:37:00 DIS Outpatient ALFIE WINKLER DO [facility] POST MENOPAUSAL BLEEDING [id number] 09/21/2017 05:29:00 09/21/2017 16:06:00 DIS Outpatient ALFIE WINKLER DO [facility] PREOP POST MENOPAUSAL BLEEDING [id number] 02/24/2017 10:32:00 02/24/2017 23:59:59 CLS Outpatient MATTHEW THOMPSON MD [facility] RAD Z12.31 SCREENING MAMMOGRAM [id number] 11/11/2016 07:56:00 12/14/2016 14:12:00 DIS Outpatient MATTHEW THOMPSON MD [facility] REHAB GAIT TRAINING [id number] 09/13/2016 18:23:00 09/13/2016 23:59:59 CLS Outpatient MATTHEW THOMPSON MD [facility] RAD G91.2 R26.89 [id number] 07/26/2016 15:03:00 07/26/2016 23:59:59 CLS Outpatient MATTHEW THOMPSON MD [facility] LAB E87.1 [id number] 07/15/2016 17:03:00 07/15/2016 23:59:59 CLS Outpatient MATTHEW THOMPSON MD [facility] LAB Z00.01 [id number] 07/11/2016 12:18:00 07/12/2016 09:00:00 DIS Inpatient MATTHEW THOMPSON MD [facility] 4TH HYPONATREMIA VOMITING DEHYDRATION [id number] 06/25/2015 09:25:00 06/25/2015 23:59:59 CLS Outpatient EDIS CONNER MD [facility] RAD SCREENING [id number] 06/18/2013 10:29:00 06/18/2013 23:59:59 CLS Outpatient ALFIE WINKLER DO [facility] RAD SCREENING [id number] 02/14/2013 13:34:00 02/14/2013 23:59:59 CLS Outpatient EDIS CONNER MD [facility] RAD BILATERAL UPPER LEG PAIN [id number] 08/26/2012 13:29:00 08/26/2012 23:59:59 CLS Outpatient [id number] 08/10/2012 11:11:00 08/10/2012 23:59:59 CLS Outpatient EDIS CONNER MD [facility] RAD COUGH,PNEUMONIA,WEAKNESS, MALAISE [id number] 10/25/2017 18:08:00 ACT Emergency JESUS WILHELM MD [facility] ER TROUBLE USING THE RESTROOM AFTER HYSTERECTOMY [id number] 06/25/2015 09:26:00 Document Registration [id number] 06/23/2014 10:57:00 Document Registration [id number] 06/14/2012 10:26:00 Document Registration [id number] 01/09/2012 09:17:00 Document Registration [id number] 01/06/2012 08:14:00 Document Registration [id number] 06/13/2011 08:58:00 Document Registration [id number] 06/10/2010 10:54:00 Document Registration
[2017-10-25] MEDS ORDERED: IBUP-1773 (19:27)
[2017-10-25] MEDS ORDERED: MEDR10TA (19:27)
[2017-10-25] MEDS ORDERED: NS IV 1000 ML 1,000 ML IV SCH (19:45)
--- NOTE | 2017-10-25 19:52 | ED GU-Female ---
General Chief Complaint: -Female Stated Complaint: TROUBLE USING THE RESTROOM AFTER HYSTERECTOMY Nursing Triage Note: UNABLE TO VOID S/P HYSTERECTOMY 10/24/17 Nursing Sepsis Screen: No Definite Risk Source: patient Exam Limitations: no limitations History of Present Illness Date Seen by Provider: Oct 25, 2017 Time Seen by Provider: 19:47 Initial Comments To ER with reports of being unable to urinate since surgery yesterday. She urinated twice immediately after surgery and was able to be discharged home. Despite drinking four 16 ounce glasses of water today, she's been unable to produce any urine. Bladder scan in the emergency room here revealed 221 ml of urine. She denies fevers or chills. Timing/Duration: constant Severity/Quality: moderate Location: other Prior Genitourinary Problems: none Associated Symptoms: abdominal pain; No dysuria Allergies and Home Medications Allergies Coded Allergies: Sulfa (Sulfonamide Antibiotics) (Unverified Allergy, Mild, 05/07/09) ampicillin (Unverified Allergy, Mild, 05/07/09) nitrofurantoin (Unverified Allergy, Mild, RASH, 09/26/17) codeine (Unverified Adverse Reaction, Mild, NAUSEA, 09/26/17) hydrocodone (Unverified Adverse Reaction, Mild, NAUSEA, 09/26/17) tramadol (Unverified Adverse Reaction, Mild, NAUSEA, 09/26/17) Home Medications Amitriptyline HCl 10 Mg Tablet, 10 MG PO HS, (Reported) Lovastatin 20 Mg Tablet, 20 MG PO HS, (Reported) Mirabegron 50 Mg Tab.er.24h, 50 MG PO DAILY@0700, (Reported) Spironolactone 100 Mg Tablet, 100 MG PO DAILY, (Reported) Patient Home Medication List Home Medication List Reviewed: Yes Review of Systems Constitutional: see HPI; No chills, No fever EENTM: see HPI Respiratory: no symptoms reported Cardiovascular: no symptoms reported Genitourinary: no symptoms reported Musculoskeletal: no symptoms reported Skin: no symptoms reported Psychiatric/Neurological: No Symptoms Reported Past Cuhryet-Pamjfs-Cudeam Hx Patient Social History Alcohol Use: Denies Use Recreational Drug Use: No Smoking Status: Never a Smoker 2nd Hand Smoke Exposure: No Recent Foreign Travel: No Contact w/Someone Who Travel: No Recent Infectious Disease Expo: No Recent Hopitalizations: No Immunizations Up To Date Tetanus Booster (TDap): Less than 5yrs Date of Pneumonia Vaccine: Mar 14, 2017 Seasonal Allergies Seasonal Allergies: No Past Medical History Surgeries: Yes (C/SX3, brain shunt, d&c, ) Brain Shunt, Section, Hysterectomy Respiratory: No Cardiac: Yes High Cholesterol, Hypertension Neurological: No (HYDROCEPHALUS REQUIRING BRAIN SHUNT PLACED AT [facility] 11/2016) : No 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 Disorders: No 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 History: Hysterectomy Sexually Transmitted Disease: No Genitourinary: No Gastrointestinal: No Musculoskeletal: No Endocrine: No HEENT: No Cancer: Yes (PRECANCEROUS SPOTS REMOVED) Skin, Melanoma Psychosocial: No Integumentary: No Blood Disorders: No Family Medical History Asthma 19 FATHER Hypertension 19 FATHER Kidney disease G8 SISTER (KIDNEY CANCER) No Pertinent Family Hx Physical Exam Vital Signs Vital Signs - First Documented 10/25/17 19:27 Temp 98.0 Pulse 88 Resp 18 B/P (MAP) 179/80 (113) Pulse Ox 100 O2 Delivery Room Air Capillary Refill : Less Than 3 Seconds Height, Weight, BMI Height: 5'0.00" Weight: 130lbs.0.0oz.58.408793ay; 26.4 BMI Method:Stated General Appearance: WD/WN, no apparent distress HEENT: PERRL/EOMI, normal ENT inspection Neck: non-tender, full range of motion Cardiovascular: no murmur Respiratory: normal breath sounds, no respiratory distress, no accessory muscle use Gastrointestinal: normal bowel sounds, non tender, soft Neurologic/Psychiatric: alert, normal mood/affect, oriented x 3 Skin: normal color, warm/dry, other (there is some swelling noted to the abdominal wall. Faint ecchymosis to the left lower and midline incision. I discussed with her that the fluid that she's been drinking may simply be going into the soft tissues as a result of third spacing from surgery, alternatively it may be worthwhile to evaluate for ureteral injury with CT scan since this was a hysterectomy involving structures near the ureters. She would prefer to follow up with Dr. Bell tomorrow to determine whether or not that is needed.) Progress/Results/Core Measures Suspected Sepsis Recent Fever Within 48 Hours: No Infection Criteria Present: None New/Unexplained Altered Menta: No Sepsis Screen: No Definite Risk SIRS Temperature:98.0 Pulse: 88 Respiratory Rate: 18 Laboratory Tests 10/25/17 20:10: White Blood Count 17.1H Blood Pressure 179 /80 Mean: 113 Laboratory Tests 10/25/17 20:10: Creatinine 3.15H, Platelet Count 290 Results/Orders Lab Results Laboratory Tests Test 10/25/17 20:03 10/25/17 20:10 Range/Units Urine Color YELLOW Urine Clarity CLEAR Urine pH 5 5-9 Urine Specific Grulla 1.010 L 1.016-1.022 Urine Protein NEGATIVE NEGATIVE Urine Glucose (UA) NEGATIVE NEGATIVE Urine Ketones NEGATIVE NEGATIVE Urine Nitrite NEGATIVE NEGATIVE Urine Bilirubin NEGATIVE NEGATIVE Urine Urobilinogen NORMAL NORMAL MG/DL Urine Leukocyte Esterase 1+ H NEGATIVE Urine RBC (Auto) 3+ H NEGATIVE Urine RBC 5-10 H /HPF Urine WBC 0-2 /HPF Urine Crystals NONE /LPF Urine Bacteria NONE /HPF Urine Casts NONE /LPF Urine Mucus NEGATIVE /LPF Urine Culture Indicated NO White Blood Count 17.1 H 4.3-11.0 10^3/uL Red Blood Count 3.90 L 4.35-5.85 10^6/uL Hemoglobin 12.1 11.5-16.0 G/DL Hematocrit 35 35-52 % Mean Corpuscular Volume 90 80-99 FL Mean Corpuscular Hemoglobin 31 25-34 PG Mean Corpuscular Hemoglobin Concent 35 32-36 G/DL Red Cell Distribution Width 12.9 10.0-14.5 % Platelet Count 290 130-400 10^3/uL Mean Platelet Volume 9.7 7.4-10.4 FL Neutrophils (%) (Auto) 85 H 42-75 % Lymphocytes (%) (Auto) 8 L 12-44 % Monocytes (%) (Auto) 7 0-12 % Eosinophils (%) (Auto) 0 0-10 % Basophils (%) (Auto) 0 0-10 % Neutrophils # (Auto) 14.5 H 1.8-7.8 X 10^3 Lymphocytes # (Auto) 1.4 1.0-4.0 X 10^3 Monocytes # (Auto) 1.2 H 0.0-1.0 X 10^3 Eosinophils # (Auto) 0.0 0.0-0.3 10^3/uL Basophils # (Auto) 0.0 0.0-0.1 10^3/uL Neutrophils % (Manual) 80 % Lymphocytes % (Manual) 14 % Monocytes % (Manual) 4 % Eosinophils % (Manual) 0 % Basophils % (Manual) 0 % Band Neutrophils 2 % Blood Morphology Comment NORMAL Sodium Level 123 *L 135-145 MMOL/L Potassium Level 4.6 3.6-5.0 MMOL/L Chloride Level 92 L 98-107 MMOL/L Carbon Dioxide Level 16 L 21-32 MMOL/L Anion Gap 15 H 5-14 MMOL/L Blood Urea Nitrogen 46 H 7-18 MG/DL Creatinine 3.15 H 0.60-1.30 MG/DL Estimat Glomerular Filtration Rate 14 BUN/Creatinine Ratio 15 Glucose Level 103 70-105 MG/DL Calcium Level 8.2 L 8.5-10.1 MG/DL My Orders Orders - LENORE ATKINS APRN Finn Cath (10/25/17 19:34) Cbc With Automated Diff (10/25/17 19:40) Basic Metabolic Panel (10/25/17 19:40) Ua Culture If Indicated (10/25/17 19:40) Ns Iv 1000 Ml (Sodium Chloride 0.9%) (10/25/17 19:45) Iv Heplock-Insert (Order) (10/25/17 19:45) Manual Differential (10/25/17 20:10) Ct Abdomen/Pelvis W (10/25/17 20:52) Iohexol Injection (Omnipaque 350 Mg/Ml 1 (10/25/17 21:00) Ns (Ivpb) (Sodium Chloride 0.9%) (10/25/17 21:00) Pharmacy Communication (Pharmacy Communi (10/25/17 20:55) Medications Given in ED Current Medications Medications Dose Ordered Sig/Taj Route Start Time Stop Time Status Last Admin Dose Admin Iohexol 100 ml ONCE ONCE IV 10/25/17 21:00 10/25/17 22:03 DC 10/25/17 21:15 100 ML Sodium Chloride 250 ml ONCE ONCE IV 10/25/17 21:00 10/25/17 22:03 DC 10/25/17 21:15 80 ML Vital Signs/I&O 10/25/17 10/25/17 19:27 22:06 Temp 98.0 98.0 Pulse 88 88 Resp 18 18 B/P (MAP) 179/80 (113) 146/62 (113) Pulse Ox 100 96 O2 Delivery Room Air Capillary Refill : Less Than 3 Seconds Blood Pressure Mean: 113 Departure Communication (Admissions) Time/Spoke to Admitting Phy: 21:[address] Bell again updating her on the CT results. we'll admit the patient, restrict free water intake to 1000 cc per day, IV normal saline at 200 cc per hour, no NSAIDs, hold the Aldactone. This time this may be simply due to preoperative Aldactone/Lasix/NSAID use combined with third spacing of fluids after surgery. We will consult her primary care provider Dr. Donny Thompson. Time/Spoke to Consulting Phy: 21:[address] Thompson. He agrees to consult. 2157- I updated the patient and her on plan to admit. She is not thrilled about this but is agreeable to stay 2056-spoke with Dr. Bell who is concerned about a ureteral injury given the elevated BUN and creatinine. She'd like a CT scan done with contrast as this would obviously be the only way to evaluate the ureters at this junction. Unfortunately she has poor renal function at this time. We will hydrate after the scan. I do not feel that this has any correlation to her history of hydrocephalus as she has a ventriculoperitoneal shunt placed, NO symptoms of increased intracranial pressure (obstructed shunt), she denies headaches vision changes nausea or vomiting. Impression Primary Impression: Acute renal failure Additional Impression: hyponatremia Disposition: ADMITTED INPATIENT Condition: Stable Admissions Decision to Admit Reason: Admit from ER (General) Decision to Admit/Date: Oct 25, 2017 Time/Decision to Admit Time: 21:58 Departure-Patient Inst. Referrals: DONNY THOMPSON MD (PCP/Family) Primary Care Physician LENORE ATKINS APRN Oct 25, 2017 19:52
[2017-10-25 20:12] LABS: BILIRUBIN,URINE NEGATIVE (NEGATIVE); CLARITY,URINE CLEAR; COLOR,URINE YELLOW; GLUCOSE, URINE (UA) NEGATIVE (NEGATIVE); KETONES,URINE NEGATIVE (NEGATIVE); LEUKOCYTE ESTERASE ,URINE 1+ (NEGATIVE); NITRITE,URINE NEGATIVE (NEGATIVE); PH,URINE 5 (5-9); PROTEIN,URINE NEGATIVE (NEGATIVE); UROBILINOGEN,URINE NORMAL (NORMAL)
[2017-10-25 20:21] LABS: BASOPHILS % (AUTO) 0 % (0-10); EOSINOPHILS % (AUTO) 0 % (0-10); HEMATOCRIT 35 % (35-52); HEMOGLOBIN 12.1 G/DL (11.5-16.0); LYMPHOCYTES # (AUTO) 1.4 X 10^3 (1.0-4.0); LYMPHOCYTES % (AUTO) 8 % (12-44); MEAN CORPUSCULAR HEMOGLOBIN 31 PG (25-34); MEAN CORPUSCULAR HGB CONC 35 G/DL (32-36); MEAN CORPUSCULAR VOLUME 90 FL (80-99); MEAN PLATELET VOLUME 9.7 FL (7.4-10.4); MONOCYTES # (AUTO) 1.2 X 10^3 (0.0-1.0); MONOCYTES % (AUTO) 7 % (0-12); NEUTROPHILS # (AUTO) 14.5 X 10^3 (1.8-7.8); NEUTROPHILS % (AUTO) 85 % (42-75); PLATELET COUNT 290 10^3/uL (130-400); RED CELL DISTRIBUTION WIDTH 12.9 % (10.0-14.5); WHITE BLOOD COUNT 17.1 10^3/uL (4.3-11.0)
[2017-10-25 20:29] LABS: WBC,URINE 0-2 /HPF
[2017-10-25 20:32] LABS: CALCIUM 8.2 MG/DL (8.5-10.1); CREATININE SERUM 3.15 MG/DL (0.60-1.30); POTASSIUM 4.6 MMOL/L (3.6-5.0)
[2017-10-25 20:44] LABS: BAND NEUTROPHILS 2 %; BASOPHILS % (MANUAL) 0 %; EOSINOPHILS % (MANUAL) 0 %; LYMPHOCYTES % (MANUAL) 14 %; MONOCYTES % (MANUAL) 4 %; NEUTROPHILS % (MANUAL) 80 %; RBC MORPH NORMAL
[2017-10-25] MEDS ORDERED: RECEIVED CONTRAST (Hold Metformin) IV SCH (20:55)
[2017-10-25] MEDS ORDERED: NS 250 ML (IVPB) BAG IV ONE (21:00)
[2017-10-25] MEDS ORDERED: IOHEXOL 350 MG/ML 100 ML (OMNIPAQUE 350) VIAL IV ONE (21:00)
--- NOTE | 2017-10-25 21:40 | Diagnostic Imaging Report ---
INDICATION: Postop hysterectomy, inability to urinate and elevated creatinine. EXAMINATION: CT of the abdomen and pelvis with IV contrast bolus. COMPARISON: 04/13/2009. FINDINGS: Visualized portions of the lung bases show some dependent atelectatic changes, There is no pleural fluid. There is no free intraperitoneal air. The liver and gallbladder appear unremarkable the spleen, adrenals and pancreas are normal. Kidneys, bilaterally, show no hydronephrosis or mass. The ureters are nondilated. There is no retroperitoneal adenopathy or mass. There is atherosclerotic change of the aorta without evidence of aneurysm. There is a small amount of free fluid in the pelvis. There is a GUARD DANCE HALL shunt catheter in place in the peritoneal cavity. There is some edema in the subcutaneous fat in the left side of the pelvis and perineum. There are uncomplicated colonic diverticuli. Urinary bladder appears decompressed with Finn catheter in place. IMPRESSION: Urinary bladder is decompressed with Finn catheter in place. There is a small amount of free fluid in the pelvis which may be due to recent surgery or due to patient's indwelling GUARD DANCE HALL shunt. There is no hydronephrosis or overt urine extravasation. There is some fat stranding in the pelvis which is probably postsurgical in nature. There is no well-defined fluid collection. There is some edema in the subcutaneous fat in the left lower quadrant and left side of the pelvis. Dictated by: Dictated on workstation # [id number]
[2017-10-25 22:10] VITALS: BP 139/72
[2017-10-25] MEDS ORDERED: ACETAMINOPHEN 325 MG TABLET PO PRN (22:30)
[2017-10-25] MEDS ORDERED: NS IV 1000 ML 1,000 ML ONE (22:33)
[2017-10-25] MEDS: NS IV 1000 ML 1,000 ML IV SCH (22:43)
[2017-10-26] MEDS ORDERED: NS IV 1000 ML 1,000 ML ONE (03:22)
[2017-10-26 03:56] VITALS: BP 94/50
[2017-10-26] MEDS: NS IV 1000 ML 1,000 ML IV SCH ×3 (03:56→20:05)
[2017-10-26] MEDS ORDERED: TRIM100T PO (07:43)
[2017-10-26] MEDS ORDERED: MIRA50TA PO (07:43)
--- NOTE | 2017-10-26 08:03 | History & Physical ---
History of Present Illness History of Present Illness Reason for visit/HPI hyponatremia, acute renal failure Date of Admission Oct 25, 2017 at 21:58 Date Seen by Provider: Oct 26, 2017 Time Seen by Provider: 07:50 I consulted on this patient on 10/26/17 08:00 Attending Physician Alfie Winkler DO Admitting Physician Donny Luther MD Consult Presented to ED with complaint of no Urine output in 24 hours. She had RaTH, BSO yesterday for postmenopausal bleeding. She did have decreased or slow urine output after surgery and received lasix with goot output (she regularly takes a diuretic). She also received toradol after surgery and has been taking ibuprofen for pain rather than a narcotic. She went home the same evening after surgery and has not voided since. Her surgery was complicated by extensive lysis of adhesions due to previous sections and USER ACCEPTANCE TESTER shunt due to hydrocephalus (placed last year). In the ED she had residual of approximately 200 ml. Creatinine was 3.14 and sodium was 123. BUN 46. GFR 14. Suggested acute renal failure. Due to the recent hysterectomy CT scan was done and there was no evidence of ureteral injury. She was admitted for NS IV fluids (250 ml/hr) and water restriction. She states she has been drinking "lots of water" because she thought she was dehydrated. WBC also 17,000 In reviewing her records, she was admitted in 2016 for hyponatremia after an illlness while on vacation (nausea/emesis/diarrhea) and resultant dehydration, and she "drank alot of water". This was around the time that her hydrocephalus was diagnosed. Currently she has no pain, no flank or back pain, no headaches, no fever. Catheter is in place to assure accurate I/O. Labs have already improved. Creatinine is 1.45. BUN 27, GFR 23 and Na 139. Will continue water restriction and .9 NS replacement today. Allergies and Home Medications Allergies Coded Allergies: Sulfa (Sulfonamide Antibiotics) (Unverified Allergy, Mild, 05/07/09) ampicillin (Unverified Allergy, Mild, 05/07/09) nitrofurantoin (Unverified Allergy, Mild, RASH, 09/26/17) codeine (Unverified Adverse Reaction, Mild, NAUSEA, 09/26/17) hydrocodone (Unverified Adverse Reaction, Mild, NAUSEA, 6/12/18) tramadol (Unverified Adverse Reaction, Mild, NAUSEA, 09/26/17) Home Medications Acetaminophen 500 Mg Tablet, 1,000 MG PO Q6H Prescribed by: ALFIE WINKLER on 10/27/17 08 Amitriptyline HCl 10 Mg Tablet, 10 MG PO HS, (Reported) Cephalexin 500 Mg Capsule, 500 MG PO TID Prescribed by: ALFIE WINKLER on 10/27/17830 Lovastatin 20 Mg Tablet, 20 MG PO HS, (Reported) Mirabegron 50 Mg Tab.er.24h, 50 MG PO DAILY, (Reported) Spironolactone 100 Mg Tablet, 100 MG PO DAILY, (Reported) Trimethoprim 100 Mg Tablet, 100 MG PO DAILY, (Reported) Patient Home Medication List Home Medication List Reviewed: Yes Past Sjnnyps-Bmvtwl-Tkmprs Hx Past Med/Social Hx: Reviewed and Corrections made Patient Social History Marrital Status: Employed/Student: retired Alcohol Use: Denies Use Recreational Drug Use: No Smoking Status: Never a Smoker 2nd Hand Smoke Exposure: No Recent Foreign Travel: No Contact w/other who traveled: No Recent Hopitalizations: No Recent Infectious Disease Expo: No Immunizations Up To Date Tetanus Booster (TDap): Less than 5yrs Date of Pneumonia Vaccine: Mar 14, 2017 Seasonal Allergies Seasonal Allergies: No Past Medical History Surgeries: Brain Shunt, Section, Hysterectomy Cardiac: High Cholesterol, Hypertension : No 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: No Sexually Transmitted Disease: No Hysterectomy Cancer: Skin, Melanoma History of Blood Disorders: No Family History Asthma 19 FATHER Hypertension 19 FATHER Kidney disease G8 SISTER (KIDNEY CANCER) No Pertinent Family Hx Constitutional: no symptoms reported EENTM: no symptoms reported Respiratory: no symptoms reported Cardiovascular: no symptoms reported Gastrointestinal: no symptoms reported Genitourinary: no symptoms reported Musculoskeletal: no symptoms reported Skin: no symptoms reported Physical Exam Vital Signs Capillary Refill : Less Than 3 Seconds Height, Weight, BMI Height: 5'0.00" Weight: 130lbs.0.0oz.58.199179zs; 25.4 BMI Method:Stated General Appearance: No Apparent Distress Respiratory: Lungs Clear Cardiovascular: Regular Rate, Rhythm, No Edema Gastrointestinal: Normal Bowel Sounds, Non Tender, Soft Assessment/Plan Assessment and Plan 1. Acute renal failure - nephrotoxic agents, lasix and NSAID 2. hyponatremia - water intoxication 3. recent post op 4. History of hydrocephalus with USER ACCEPTANCE TESTER shunt Plan - 0.9 NS at 250 ml/hr, restrict water, hold and NSAIDS, Prophylactic antibiotic due to USER ACCEPTANCE TESTER shunt and high risk of infection. Admission Diagnosis Admission Status: Inpatient Order (span 2 midnights) Reason for Inpatient Admission: acute renal failure ALFIE WINKLER DO Oct 26, 2017 08:03
[2017-10-26 08:28] LABS: BASOPHILS % (AUTO) 0 % (0-10); EOSINOPHILS % (AUTO) 0 % (0-10); HEMATOCRIT 31 % (35-52); HEMOGLOBIN 10.5 G/DL (11.5-16.0); LYMPHOCYTES # (AUTO) 1.3 X 10^3 (1.0-4.0); LYMPHOCYTES % (AUTO) 13 % (12-44); MEAN CORPUSCULAR HEMOGLOBIN 31 PG (25-34); MEAN CORPUSCULAR HGB CONC 34 G/DL (32-36); MEAN CORPUSCULAR VOLUME 91 FL (80-99); MONOCYTES # (AUTO) 0.7 X 10^3 (0.0-1.0); MONOCYTES % (AUTO) 8 % (0-12); NEUTROPHILS # (AUTO) 7.6 X 10^3 (1.8-7.8); NEUTROPHILS % (AUTO) 79 % (42-75); PLATELET COUNT 228 10^3/uL (130-400); RED BLOOD COUNT 3.35 10^6/uL (4.35-5.85); RED CELL DISTRIBUTION WIDTH 13.2 % (10.0-14.5); WHITE BLOOD COUNT 9.7 10^3/uL (4.3-11.0)
--- NOTE | 2017-10-26 08:28 | Consultation ---
History of Present Illness History of Present Illness Patient Consulted On(roula/time) 10/26/17 08:23 Date Seen by Provider: Oct 26, 2017 Time Seen by Provider: 08:24 Reason for Visit: acute kidney failure History of Present Illness 72 yo F admitted overnight for inability to urinate- It was found though her creatinine was >3. She is s/p robotic hysterectomy 10/24/17 for abnormal bleeding. Patient urinated twice prior to discharge after the hysterectomy- ( she did receive a dose of lasix)- Pt has been controlling her pain with ibuprofen and was given a dose of ibuprofen by family last night after she was admitted. Of note patient was admitted June 2016- for dehydration resulting in hypovolemic hyponatremia- which on that admission she was found to have normal pressure hydrocephalus manifesting with shuffling gait, confusion. She underwent shunt placement Nov 2016. I suspect a similar result with her bowel prep on Monday placing her in a hypovolemic state. Of further note, patient's reports since she was in pain she was taking 600mg of ibuprofen about every 2-3 hours when she got home after the surgery. ER course- she was given IVF and a CT was obtained to evaluate ureters which were normal. Pt admitted for further evaluation and management. I was consulted as her PCP and to assist in medical management. Allergies and Home Medications Allergies Coded Allergies: Sulfa (Sulfonamide Antibiotics) (Unverified Allergy, Mild, 05/07/09) ampicillin (Unverified Allergy, Mild, 05/07/09) nitrofurantoin (Unverified Allergy, Mild, RASH, 09/26/17) codeine (Unverified Adverse Reaction, Mild, NAUSEA, 09/26/17) hydrocodone (Unverified Adverse Reaction, Mild, NAUSEA, 09/26/17) tramadol (Unverified Adverse Reaction, Mild, NAUSEA, 09/26/17) Home Medications Amitriptyline HCl 10 Mg Tablet, 10 MG PO HS, (Reported) Lovastatin 20 Mg Tablet, 20 MG PO HS, (Reported) Mirabegron 50 Mg Tab.er.24h, 50 MG PO DAILY, (Reported) Spironolactone 100 Mg Tablet, 100 MG PO DAILY, (Reported) Trimethoprim 100 Mg Tablet, 100 MG PO DAILY, (Reported) Patient Home Medication List Home Medication List Reviewed: Yes Past Bsveaav-Ticbhm-Secnux Hx Patient Social History Alcohol Use: Denies Use Recreational Drug Use: No Smoking Status: Never a Smoker 2nd Hand Smoke Exposure: No Recent Foreign Travel: No Contact w/Someone Who Travel: No Recent Infectious Disease Expo: No Recent Hopitalizations: No Immunizations Up To Date Tetanus Booster (TDap): Less than 5yrs Date of Pneumonia Vaccine: Mar 14, 2017 Seasonal Allergies Seasonal Allergies: No Past Medical History Surgeries: Yes (C/SX3, brain shunt, d&c, ) Brain Shunt, Section, Hysterectomy Respiratory: No Cardiac: Yes High Cholesterol, Hypertension Neurological: No (HYDROCEPHALUS REQUIRING BRAIN SHUNT PLACED AT [facility] 11/2016) : No 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 Sexually Transmitted Disease: No Genitourinary: No Gastrointestinal: No Musculoskeletal: No Endocrine: No HEENT: No Cancer: Yes (PRECANCEROUS SPOTS REMOVED) Skin, Melanoma Psychosocial: No Integumentary: No Blood Disorders: No Family Medical History Asthma 19 FATHER Hypertension 19 FATHER Kidney disease G8 SISTER (KIDNEY CANCER) No Pertinent Family Hx Review of Systems Review of Systems General: No Chills, No Night Sweats HEENT: No Head Aches, No Visual Changes Pulmonary: No Dyspnea, No Cough Cardiovascular: No: Chest Pain, Palpitations Gastrointestinal: Abdominal Pain; No: Nausea, Vomiting Genitourinary: No Dysuria, No Frequency Neurological: Weakness Physical Exam Vital Signs Vital Signs - First Documented 10/25/17 19:27 Temp 98.0 Pulse 88 Resp 18 B/P (MAP) 179/80 (113) Pulse Ox 100 O2 Delivery Room Air Capillary Refill : Less Than 3 Seconds Height, Weight, BMI Height: 5'0.00" Weight: 130lbs.0.0oz.58.710196qe; 25.4 BMI Method:Stated General Appearance: Mild Distress HEENT: PERRL/EOMI Neck: Non Tender, Supple Respiratory: Chest Non Tender, Lungs Clear, Normal Breath Sounds, No Accessory Muscle Use, No Respiratory Distress Cardiovascular: Regular Rate, Rhythm, No Edema Gastrointestinal: Soft; No Guarding; Tenderness (appropriate) Rectal: Deferred Extremity: Non Tender Neurologic/Psychiatric: Alert, Oriented x3, No Motor/Sensory Deficits Skin: Warm/Dry Assessment/Plan Assessment/Plan Admission Dx acute kidney failure hyponatremia Admission Status: Observation Reason for Inpatient Admission: acute kidney failure Assessment and Plan 72 yo F * acute kidney failure- secondary to NSAIDs/nephrotoxic agents continue IVF, monitor urine output as well as electrolytes. -great urine output No nephrotoxic agents. also had a CT w/ contrast *hypovolemic hyponatremia- secondary to bowel prep and pt has predisposition to hyponatremia-(NPH) improved with IVF rechecking in AM *Normal Pressure Hydrocephalus- s/p shunt placement Nov 2016- at [facility] - shuffling gait and mentation improved after placement. * s/p hysterectomy for abnormal uterine bleeding- 10/24/17 Dispo: trending labs, IVF will turn down to 100ml/hr hold home medications for now. Expect pt to recover as her labs overall are looking decent. could obtain an uric acid to evaluate if she is still hypovolemic- Problems: (1) Dehydration with hyponatremia MATTHEW THOMPSON MD Oct 26, 2017 08:28
[2017-10-26 08:48] LABS: CREATININE SERUM 1.45 MG/DL (0.60-1.30); POTASSIUM 4.2 MMOL/L (3.6-5.0)
[2017-10-26 08:55] VITALS: BP 129/67
[2017-10-26 11:50] VITALS: BP 111/62
[2017-10-26] MEDS: ceFAZolin INJECTION 1,000 MG in NS (IVPB) 50 ML IV SCH ×2 (11:51→20:04)
[2017-10-26 16:50] VITALS: BP 145/79
[2017-10-26 20:19] VITALS: BP 118/61
[2017-10-27 00:10] VITALS: BP 118/71
[2017-10-27] MEDS ORDERED: AMITRIPTYLINE 10 MG (ELAVIL) TAB PO ONE (01:45)
[2017-10-27] MEDS: NS IV 1000 ML 1,000 ML IV SCH ×2 (01:59→06:30)
[2017-10-27 04:30] VITALS: BP 123/66
[2017-10-27] MEDS: ceFAZolin INJECTION 1,000 MG in NS (IVPB) 50 ML IV SCH (04:30)
[2017-10-27 05:44] LABS: ALANINE AMINOTRANSFERASE 8 U/L (0-55); ALBUMIN 2.9 GM/DL (3.2-4.5); ALKALINE PHOSPHATASE 42 U/L (40-136); BILIRUBIN,TOTAL 0.4 MG/DL (0.1-1.0); BUN/CREATININE RATIO 20; CALCIUM 7.7 MG/DL (8.5-10.1); CARBON DIOXIDE 19 MMOL/L (21-32); CHLORIDE 112 MMOL/L (98-107); CREATININE SERUM 0.76 MG/DL (0.60-1.30); GFR ESTIMATED > 60; GLUCOSE 97 MG/DL (70-105); POTASSIUM 3.9 MMOL/L (3.6-5.0); SODIUM 138 MMOL/L (135-145); TOTAL PROTEIN 4.7 GM/DL (6.4-8.2)
[2017-10-27 08:00] VITALS: BP 133/69
--- NOTE | 2017-10-27 08:28 | Physician Progress Note ---
Progress Note Assessment/Plan Date Seen by Provider: Oct 27, 2017 Time Seen by Provider: 08:20 Events since last exam Finn removed. Continues to void. IV antibiotics continued for UTI prophylaxis due to history of [employer] shunt Feels well. No complaints. 10/27/17 10/27/17 10/27/17 00:10 04:30 08:00 Temp 98.0 99.4 98.6 Pulse 88 92 86 Resp 18 18 16 B/P (MAP) 118/71 (87) 123/66 (85) 133/69 (90) Pulse Ox 98 98 96 O2 Delivery Room Air Room Air Room Air 10/27/17 00:00 Intake Total 490 ml Output Total 1700 ml Balance -1210 ml Laboratory Tests Test 10/27/17 05:05 Range/Units Sodium Level 138 135-145 MMOL/L Potassium Level 3.9 3.6-5.0 MMOL/L Chloride Level 112 H 98-107 MMOL/L Carbon Dioxide Level 19 L 21-32 MMOL/L Anion Gap 7 5-14 MMOL/L Blood Urea Nitrogen 15 7-18 MG/DL Creatinine 0.76 0.60-1.30 MG/DL Estimat Glomerular Filtration Rate > 60 BUN/Creatinine Ratio 20 Glucose Level 97 70-105 MG/DL Calcium Level 7.7 L 8.5-10.1 MG/DL Total Bilirubin 0.4 0.1-1.0 MG/DL Aspartate Amino Transf (AST/SGOT) 18 5-34 U/L Alanine Aminotransferase (ALT/SGPT) 8 0-55 U/L Alkaline Phosphatase 42 40-136 U/L Total Protein 4.7 L 6.4-8.2 GM/DL Albumin 2.9 L 3.2-4.5 GM/DL Intake and Output 10/27/17 00:00 Intake Total 2490 ml Output Total 5600 ml Balance -3110 ml Intake Oral 440 ml IV Total 2050 ml Output Urine Total 5600 ml Intake and Output 10/27/17 00:00 Intake Total 490 ml Output Total 1700 ml Balance -1210 ml Vital Sign - Last 24 Hours 10/26/17 10/26/17 10/26/17 10/26/17 08:55 11:50 16:50 20:19 Temp 99.0 98.3 97.6 98.1 Pulse 93 95 94 96 Resp 16 14 18 18 B/P (MAP) 129/67 (87) 111/62 (78) 145/79 (101) 118/61 (80) Pulse Ox 96 96 100 96 O2 Delivery Room Air Room Air Room Air Room Air 10/27/17 10/27/17 10/27/17 00:10 04:30 08:00 Temp 98.0 99.4 98.6 Pulse 88 92 86 Resp 18 18 16 B/P (MAP) 118/71 (87) 123/66 (85) 133/69 (90) Pulse Ox 98 98 96 O2 Delivery Room Air Room Air Room Air Intake and Output 10/26/17 10/26/17 10/27/17 15:00 23:00 07:00 Intake Total 1490 ml 500 ml Output Total 1700 ml 1700 ml Balance -210 ml -1200 ml Assessment/Plan 72 yo F * acute kidney failure- secondary to NSAIDs/nephrotoxic agents continue IVF, monitor urine output as well as electrolytes. No nephrotoxic agents. also had a CT w/ contrast *hyponatremia- improved with IVF rechecking in AM *Normal Pressure Hydrocephalus- s/p shunt placement Nov 2016- at [facility] - shuffling gait and mentation improved after placement. * s/p hysterectomy for abnormal uterine bleeding- 10/24/17 Dispo: trending labs, IVF will turn down to 125ml/hr hold home medications for now. Vitals Last set of Vitals Signs Vital Signs Date Time Temp Pulse Resp B/P (MAP) Pulse Ox O2 Delivery O2 Flow Rate FiO2 10/27/17 08:00 98.6 86 16 133/69 (90) 96 Room Air I&O I&O Intake and Output 10/27/17 00:00 Intake Total 2490 ml Output Total 5600 ml Balance -3110 ml Intake Oral 440 ml IV Total 2050 ml Output Urine Total 5600 ml Labs Laboratory Tests 10/27/17 05:05: Sodium Level 138, Potassium Level 3.9, Chloride Level 112H, Carbon Dioxide Level 19L, Anion Gap 7, Blood Urea Nitrogen 15, Creatinine 0.76, Estimat Glomerular Filtration Rate > 60, BUN/Creatinine Ratio 20, Glucose Level 97, Calcium Level 7.7L, Total Bilirubin 0.4, Aspartate Amino Transf (AST/SGOT) 18, Alanine Aminotransferase (ALT/SGPT) 8, Alkaline Phosphatase 42, Total Protein 4.7L, Albumin 2.9L ALFIE WINKLER DO Oct 27, 2017 08:28
[2017-10-27] MEDS ORDERED: CEPH-507 PO (08:31)
[2017-10-27] MEDS ORDERED: ACET-2267 PO (08:31)
--- NOTE | 2017-10-27 08:33 | Discharge Inst-Women's Service ---
Discharge Inst-Women's Serv Depart Medication/Instructions New, Converted or Re-Newed RX: RX on Chart Instructions start spirinolactone tomorrow continue keflex x 3 day no greater than 1000 ml water daily follow up with Dr. Luther in 2 weeks post op visit with me as scheduled. Final Diagnosis hyponatremia acute renal failure Consults/Follow Up Additional Follow Up: Yes (as above) Activity Activity: Activity as Tolerated Driving Instructions: No Driving for 1 Week NO SMOKING: NO SMOKING Nothing Inside Vagina: No Douching, No [place], No Tampons Diet Discharge Diet: No Restrictions Symptoms to Report to : Bleeding Excessive, Pain Increased, Fever Over 101 Degrees F, Pain/Pressure in Jaw, Vaginal Bleeding Increase, Cramps in Feet or Legs, Vaginal Discharge Foul For Any Problems or Questions: Contact Your Physician Skin/Wound Care Infection Signs and Symptoms: Increased Redness, Foul Odor of Wound, Increased Drainage, Skin Itchy or Has a Rash, Increased Swelling, Temperature Above 101 F Operative Area Clean and Dry: Keep Incision Clean/Dry (May remove bandages today) Stitches/Henderson/Dermabond: Dermabond Bathing Instructions: ALFIE La DO Oct 27, 2017 08:33
--- NOTE | 2017-10-27 08:44 | Progress Note (SOAP) ---
Subjective Subjective Date Seen by Provider: Oct 27, 2017 Time Seen by Provider: 08:15 72 yo F admitted for acute renal failure- she is doing well overall- abdominal pain not much of an issue. Urinated a couple times since the salazar came out. Did use elavil last night to help her sleep. She is ready to go home today. Review of Systems General: No Chills, No Night Sweats HEENT: No Head Aches, No Visual Changes Pulmonary: No Dyspnea, No Cough Cardiovascular: No: Chest Pain, Palpitations Gastrointestinal: Abdominal Pain (improved); No: Nausea, Vomiting Genitourinary: No Dysuria, No Frequency Neurological: Weakness Objective Exam Vital Signs Vital Signs Date Time Temp Pulse Resp B/P (MAP) Pulse Ox O2 Delivery O2 Flow Rate FiO2 10/27/17 08:00 98.6 86 16 133/69 (90) 96 Room Air 10/27/17 04:30 99.4 92 18 123/66 (85) 98 Room Air 10/27/17 00:10 98.0 88 18 118/71 (87) 98 Room Air 10/26/17 20:19 98.1 96 18 118/61 (80) 96 Room Air 10/26/17 16:50 97.6 94 18 145/79 (101) 100 Room Air 10/26/17 11:50 98.3 95 14 111/62 (78) 96 Room Air 10/26/17 08:55 99.0 93 16 129/67 (87) 96 Room Air I & O 10/27/17 07:00 Intake Total 1990 ml Output Total 3400 ml Balance -1410 ml General Appearance: No Apparent Distress, WD/WN, Mild Distress HEENT: PERRL/EOMI Neck: Non Tender, Supple Respiratory: Chest Non Tender, Lungs Clear, Normal Breath Sounds, No Accessory Muscle Use, No Respiratory Distress Cardiovascular: Regular Rate, Rhythm, No Edema Gastrointestinal: Soft; No Guarding; Tenderness (appropriate) Rectal: Deferred Extremity: Non Tender Neurologic/Psychiatric: Alert, Oriented x3, No Motor/Sensory Deficits Skin: Warm/Dry Results Lab Laboratory Tests 10/27/17 05:05: Sodium Level 138, Potassium Level 3.9, Chloride Level 112H, Carbon Dioxide Level 19L, Anion Gap 7, Blood Urea Nitrogen 15, Creatinine 0.76, Estimat Glomerular Filtration Rate > 60, BUN/Creatinine Ratio 20, Glucose Level 97, Calcium Level 7.7L, Total Bilirubin 0.4, Aspartate Amino Transf (AST/SGOT) 18, Alanine Aminotransferase (ALT/SGPT) 8, Alkaline Phosphatase 42, Total Protein 4.7L, Albumin 2.9L Assessment/Plan Assessment/Plan Admission Dx acute kidney failure hyponatremia Assessment and Plan 72 yo F * acute kidney failure- secondary to NSAIDs/nephrotoxic agents stop IVF, -great urine output No nephrotoxic agents. also had a CT w/ contrast *hypovolemic hyponatremia- secondary to bowel prep and pt has predisposition to hyponatremia-(NPH) improved with IVF *Normal Pressure Hydrocephalus- s/p shunt placement Nov 2016- at [facility] - shuffling gait and mentation improved after placement. * s/p hysterectomy for abnormal uterine bleeding- 10/24/17 Dispo: KIDNEYS HAVE RECOVERED- SODIUM BACK TO NORMAL. FROM MY STANDPOINT CLEARED FOR DISCHARGE- RECOMMENDATION- -CONTINUE HYDRATION WITH WATER- - AVOID NSAIDS -MAY USE IBUPROFEN PRN IN THE FUTURE. APAP FOR PAIN FOR NOW. --CEPHALEXIN FOR 3 MORE DAYS. THEN MAY GO BACK ON PPX TRIMETHOPRIM --AMBULATE TOLERATED -MAY RESUME SPIRONOLACTONE TOMORROW 10/28/17 FOR potassium sparing benefit and blood pressure. --follow up in 1-2 weeks at [facility]. Problems: (1) Dehydration with hyponatremia Admission Dx acute kidney failure hyponatremia Clinical Quality Measures Admission Status Admission Dx acute kidney failure hyponatremia MATTHEW THOMPSON MD Oct 27, 2017 08:44
== END 2017-10-27 08:31 | disposition home or self-care (01) ==
LOC: EDUNIT# 18:06 → ER 18:08 → LDRP 21:58 → UNDOADMIN 21:58 → LDRP 22:10 → UNDODISIN 10-27 10:55
PROVIDERS: ADMIT Obstetrics & Gynecology; ATTEND Obstetrics & Gynecology
DX: N17.9 Acute kidney failure, unspecified (principal); E87.1 Hypo-osmolality and hyponatremia; G91.2 (Idiopathic) normal pressure hydrocephalus; T39.395A Adverse effect of other nonsteroidal anti-inflammatory drugs [NSAID], initial encounter; E86.0 Dehydration; E86.1 Hypovolemia; E78.00 Pure hypercholesterolemia, unspecified; I10 Essential (primary) hypertension; Z85.820 Personal history of malignant melanoma of skin; Z85.020 Personal history of malignant carcinoid tumor of stomach; Z98.2 Presence of cerebrospinal fluid drainage device; Z98.890 Other specified postprocedural states
CPT/HCPCS: 36415; 51702; 74177; 80048; 80053; 81000; 85007; 85025; 85027; 86850; 86900; 86901; 94664; 96360; G0378

== ENCOUNTER → 2018-02-27 | Outpatient (CLI) | payer MEDICARE, OTHER ==
[~2018-02-27] MED LIST changes: +CEPH-507 PO; +IBUP-1773; +MEDR10TA
--- NOTE | 2018-02-27 14:04 | Diagnostic Imaging Report ---
INDICATION: Routine screening. COMPARISON: 02/24/2017 and 06/25/2015. TECHNIQUE: 2D and 3D bilateral screening mammography was performed with CAD. FINDINGS: Scattered fibroglandular densities are identified bilaterally. Tubing in the medial portion of the right breast is again noted. Multiple small benign-appearing nodules in the right breast also appear stable. Left breast calcifications are unchanged. An area of architectural distortion or scarring in the left breast appears similar to the prior exam. Multiple small nodules in the left breast are stable. No new mass or malignant appearing microcalcifications are seen. The axillae are unremarkable. IMPRESSION: No mammographic features suspicious for malignancy are identified. ACR BI-RADS Category 2: Benign findings. Result letter will be mailed to the patient. Note: At least 10% of breast cancer is not imaged by mammography. Dictated by: Dictated on workstation # [id number]
== END ==
LOC: RAD 10:28
PROVIDERS: ATTEND Obstetrics & Gynecology
DX: Z12.31 Encounter for screening mammogram for malignant neoplasm of breast (principal)
CPT/HCPCS: 77067

== ENCOUNTER → 2021-05-28 | Outpatient (CLI) | payer MEDICARE, OTHER ==
[~2021-05-28] MED LIST changes: +AMT10T PO; -MAGN400T6 PO; +MGX400T PO
--- NOTE | 2021-05-28 17:30 | Diagnostic Imaging Report ---
EXAMINATION: Lumbar spine radiographs, 3 views. COMPARISON: CT abdomen and pelvis October 25, 2017. HISTORY: 76-year-old female, fall. Low back pain. FINDINGS: There is a lumbar levoscoliosis. There is a compression deformity of T12 with approximately 40% vertebral body height loss. There are multilevel mild to moderate disc degenerative changes of the lumbar spine. There is moderate disc height loss at L1-L2 and L2-L3 as well as at L3-L4. There are multilevel endplate degenerative related changes. There are right facet degenerative changes at L4-L5. There are atherosclerotic calcifications. IMPRESSION: 1. T12 compression deformity with approximately 40% height loss which is new since CT abdomen and pelvis exam on October 25, 2017. This is otherwise age-indeterminate. 2. Lumbar levoscoliosis with multilevel mild to moderate disc degenerative changes of the lumbar spine. Dictated by: Dictated on workstation # [id number]
== END ==
LOC: RAD 14:41
PROVIDERS: ATTEND Nurse Practitioner Family
DX: M47.816 Spondylosis without myelopathy or radiculopathy, lumbar region (principal); M43.8X4 Other specified deforming dorsopathies, thoracic region; M51.34 Other intervertebral disc degeneration, thoracic region; M41.86 Other forms of scoliosis, lumbar region; W19.XXXA Unspecified fall, initial encounter
CPT/HCPCS: 72100

== ENCOUNTER → 2021-06-03 | Outpatient (CLI) | payer MEDICARE ==
--- NOTE | 2021-06-03 14:49 | Diagnostic Imaging Report ---
CLINICAL INDICATIONS: Patient with compression fracture. Patient stretched approximately a week ago and felt pain in lower thoracic spine. EXAM: MRI of the thoracic spine performed without IV contrast. Sequences include sagittal T2, sagittal T1, sagittal T2 fat-sat, sagittal stir, and axial T2. COMPARISON: X-ray lumbar spine dated 05/28/2021. FINDINGS: There is a roughly 60% anterior wedge burst fracture involving the T12 vertebra with associated marrow edema. The fracture height loss has slightly progressed in the interim. There is soft tissue swelling anterior to the T11-T12 vertebra. There is no epidural hematoma. There is either extruded disk or blood seen anterior to the T11-T12 disk space region. There is moderate to severe central canal stenosis. There is no definite abnormal cord signal. There is no other thoracic spine fracture. There is slight kyphosis of the thoracic spine posture related to the T12 fracture. There is facet arthropathy at the T11-T12 level. There are degenerative spurs anteriorly throughout the thoracic spine and facet arthropathy. There is no significant central canal or neural foramen narrowing otherwise. IMPRESSION: 1: There is an acute/subacute burst fracture involving the T12 vertebra with moderate to severe central canal stenosis. There is no definite cord signal abnormality. The degree of compression of the T12 vertebral body fracture has slightly progressed in the interim 2: There is thoracic spine degenerative disease. Report was faxed to office of LESLEY Nix by ruperto at 2:48pm. Dictated by: Dictated on workstation # [id number]
== END ==
LOC: RAD 13:15
PROVIDERS: ATTEND Nurse Practitioner Family
DX: M47.814 Spondylosis without myelopathy or radiculopathy, thoracic region (principal); M48.54XA Collapsed vertebra, not elsewhere classified, thoracic region, initial encounter for fracture; M48.04 Spinal stenosis, thoracic region
CPT/HCPCS: 72146

== ENCOUNTER 2021-06-13 12:57 | Inpatient (IN) | payer MEDICARE ==
[~2021-06-13] VITALS: Ht 152.4 cm; Wt 65.1 kg
[2021-06-13 13:15] LABS: BASOPHILS % (AUTO) 0 % (0-10); EOSINOPHILS % (AUTO) 0 % (0-10); HEMATOCRIT 37 % (35-52); HEMOGLOBIN 12.3 g/dL (11.5-16.0); LYMPHOCYTES # (AUTO) 0.7 10^3/uL (1.0-4.0); LYMPHOCYTES % (AUTO) 4 % (12-44); MEAN CORPUSCULAR HEMOGLOBIN 30 pg (25-34); MEAN CORPUSCULAR HGB CONC 33 g/dL (32-36); MEAN CORPUSCULAR VOLUME 89 fL (80-99); MEAN PLATELET VOLUME 10.8 fL (9.0-12.2); MONOCYTES % (AUTO) 6 % (0-12); NEUTROPHILS # (AUTO) 14.7 10^3/uL (1.8-7.8); NEUTROPHILS % (AUTO) 88 % (42-75); PLATELET COUNT 134 10^3/uL (130-400); WHITE BLOOD COUNT 16.8 10^3/uL (4.3-11.0)
[2021-06-13] MEDS ORDERED: LACTATED RINGERS 1,000 ML IV SCH (13:15)
--- NOTE | 2021-06-13 13:26 | ED General ---
General Chief Complaint: General Problems/Pain Stated Complaint: NOT EATING Nursing Triage Note: pt to rm 9 by cr co ems with cc of general weakness. pt fell about 2 weeks ago and has a T 12 fx, not eating or drinking well, blood sugar 263 by ems, hx of a shunt in her head Source of Information: Patient, EMS, Family Exam Limitations: No Limitations History of Present Illness Date Seen by Provider: Jun 13, 2021 Time Seen by Provider: 13:23 Initial Comments To ER by EMS from home with general weakness nausea and back pain. She fell about 2 weeks ago and had a T12 fracture. She is scheduled to see title curative specialist of the [address] [place] [id number] on Monday of this upcoming week (today is Monday) to discuss treatment options. She has been taking oxycodone at home and Zofran before the oxycodone however she still has nausea. Because of this she has not been eating or drinking much which has led to increased weakness and she has not been able to get out of bed for the past 2 to 3 days. No fevers or chills and at this time her nausea and pain are controlled she just reports a global weakness. Timing/Duration: Getting Worse Severity: Moderate Associated Systoms: Denies Symptoms, Nausea/Vomiting Allergies and Home Medications Allergies Coded Allergies: Sulfa (Sulfonamide Antibiotics) (Unverified Allergy, Mild, 05/07/09) ampicillin (Unverified Allergy, Mild, 05/07/09) nitrofurantoin (Unverified Allergy, Mild, RASH, 09/26/17) codeine (Unverified Adverse Reaction, Mild, NAUSEA, 09/26/17) hydrocodone (Unverified Adverse Reaction, Mild, NAUSEA, 09/26/17) tramadol (Unverified Adverse Reaction, Mild, NAUSEA, 09/26/17) Patient Home Medication List Home Medication List Reviewed: Yes Acetaminophen (Tylenol Extra Strength) 500 Mg Tablet, 1,000 MG PO Q6H Prescribed by: ALFIE WINKLER on 10/27/17 0831 Amitriptyline HCl (Amitriptyline HCl) 10 Mg Tablet, 10 MG PO HS, (Reported) Entered as Reported by: EVERETT GATES on 07/11/16 1301 Cephalexin (Keflex) 500 Mg Capsule, 500 MG PO TID Prescribed by: ALFIE WINKLER on 10/27/17 0831 Lovastatin (Lovastatin) 20 Mg Tablet, 20 MG PO HS, (Reported) Entered as Reported by: EVERETT GATES on 07/11/16 1301 Mirabegron (Myrbetriq) 50 Mg Tab.er.24h, 50 MG PO DAILY, (Reported) Entered as Reported by: CIPRIANO MOSLEY on 10/26/17 0743 Spironolactone (Spironolactone) 100 Mg Tablet, 100 MG PO DAILY, (Reported) Entered as Reported by: EVERETT GATES on 07/11/16 1301 Trimethoprim (Trimethoprim) 100 Mg Tablet, 100 MG PO DAILY, (Reported) Entered as Reported by: CIPRIANO MOSLEY on 10/26/17 0743 Review of Systems Review of Systems Constitutional: see HPI EENTM: see HPI Respiratory: no symptoms reported Cardiovascular: no symptoms reported Gastrointestinal: No abdominal pain; nausea, vomiting Genitourinary: no symptoms reported Musculoskeletal: see HPI, back pain Skin: no symptoms reported Psychiatric/Neurological: No Symptoms Reported Past Adyjvab-Zajlhv-Vokezi Hx Patient Social History Tobacco Use?: No Substance use?: No Alcohol Use?: No Immunizations Up To Date Tetanus Booster (TDap): Less than 5yrs First/Initial COVID19 Vaccinat: 05/08/20 Second COVID19 Vaccination Mark: 06/05/20 COVID19 Vaccine Third Officer: henna Seasonal Allergies Seasonal Allergies: No Past Medical History Surgery/Hospitalization HX: shunt in head Surgeries: Yes (C/SX3, brain shunt, d&c, ) Brain Shunt, Section, Hysterectomy Respiratory: No Cardiac: Yes High Cholesterol, Hypertension Neurological: No (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) 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 Disorders: 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 Sexually Transmitted Disease: No Genitourinary: No Gastrointestinal: No Musculoskeletal: No Endocrine: No HEENT: No Cancer: Yes (PRECANCEROUS SPOTS REMOVED) Skin, Melanoma Psychosocial: No Integumentary: No Blood Disorders: No Family Medical History Asthma 19 FATHER Hypertension 19 FATHER Kidney disease G8 SISTER (KIDNEY CANCER) No Pertinent Family Hx Physical Exam Vital Signs Vital Signs - First Documented 06/13/21 13:02 Temp 36.0 Pulse 102 Resp 16 B/P (MAP) 194/81 (118) Pulse Ox 96 O2 Delivery Room Air Capillary Refill : Less Than 3 Seconds Height, Weight, BMI Height: 5'0.00" Weight: 130lbs. 0.0oz. 58.660072dp; 27.00 BMI Method:Stated General Appearance: No Apparent Distress, WD/WN, Other (Generally weak appearing. She denies any pain at this time. Abdomen is flat soft and non tender.) Eyes: Bilateral Eye Normal Inspection, Bilateral Eye PERRL, Bilateral Eye EOMI Neck: Full Range of Motion, Normal Inspection Respiratory: Lungs Clear, Normal Breath Sounds, No Accessory Muscle Use, No Respiratory Distress Cardiovascular: Regular Rate, Rhythm, Normal Peripheral Pulses Gastrointestinal: Normal Bowel Sounds, Non Tender, Soft Extremity: Normal Capillary Refill, Normal Inspection Neurologic/Psychiatric: Alert, Oriented x3 Skin: Normal Color, Warm/Dry Progress/Results/Core Measures Suspected Sepsis SIRS Temperature: Pulse: 102 Respiratory Rate: 16 Laboratory Tests 06/13/21 13:05: White Blood Count 16.8H Blood Pressure 194 /81 Mean: 118 Laboratory Tests 06/13/21 13:05: Creatinine 1.20, Platelet Count 134, Total Bilirubin 0.5 Results/Orders Lab Results Laboratory Tests Test 06/13/21 13:05 06/13/21 13:55 Range/Units White Blood Count 16.8 H 4.3-11.0 10^3/uL Red Blood Count 4.14 3.80-5.11 10^6/uL Hemoglobin 12.3 11.5-16.0 g/dL Hematocrit 37 35-52 % Mean Corpuscular Volume 89 80-99 fL Mean Corpuscular Hemoglobin 30 25-34 pg Mean Corpuscular Hemoglobin Concent 33 32-36 g/dL Red Cell Distribution Width 14.2 10.0-14.5 % Platelet Count 134 130-400 10^3/uL Mean Platelet Volume 10.8 9.0-12.2 fL Immature Granulocyte % (Auto) 2 % Neutrophils (%) (Auto) 88 H 42-75 % Lymphocytes (%) (Auto) 4 L 12-44 % Monocytes (%) (Auto) 6 0-12 % Eosinophils (%) (Auto) 0 0-10 % Basophils (%) (Auto) 0 0-10 % Neutrophils # (Auto) 14.7 H 1.8-7.8 10^3/uL Lymphocytes # (Auto) 0.7 L 1.0-4.0 10^3/uL Monocytes # (Auto) 1.0 0.0-1.0 10^3/uL Eosinophils # (Auto) 0.0 0.0-0.3 10^3/uL Basophils # (Auto) 0.0 0.0-0.1 10^3/uL Immature Granulocyte # (Auto) 0.3 H 0.0-0.1 10^3/uL Neutrophils % (Manual) 90 % Lymphocytes % (Manual) 6 % Monocytes % (Manual) 4 % Eosinophils % (Manual) 0 % Basophils % (Manual) 0 % Band Neutrophils 0 % Polychromasia SLIGHT Anisocytosis SLIGHT Sodium Level 126 L 135-145 MMOL/L Potassium Level 4.5 3.6-5.0 MMOL/L Chloride Level 92 L 98-107 MMOL/L Carbon Dioxide Level 22 21-32 MMOL/L Anion Gap 12 5-14 MMOL/L Blood Urea Nitrogen 33 H 7-18 MG/DL Creatinine 1.20 0.60-1.30 MG/DL Estimat Glomerular Filtration Rate 47 BUN/Creatinine Ratio 28 Glucose Level 177 H 70-105 MG/DL Calcium Level 9.3 8.5-10.1 MG/DL Corrected Calcium 9.9 8.5-10.1 MG/DL Magnesium Level 1.4 L 1.6-2.4 MG/DL Total Bilirubin 0.5 0.1-1.0 MG/DL Aspartate Amino Transf (AST/SGOT) 21 5-34 U/L Alanine Aminotransferase (ALT/SGPT) 17 0-55 U/L Alkaline Phosphatase 105 40-136 U/L Total Protein 6.0 L 6.4-8.2 GM/DL Albumin 3.3 3.2-4.5 GM/DL Urine Color YELLOW Urine Clarity SL CLOUDY Urine pH 6.0 5-9 Urine Specific [place] 1.025 H 1.016-1.022 Urine Protein TRACE H NEGATIVE Urine Glucose (UA) NEGATIVE NEGATIVE Urine Ketones NEGATIVE NEGATIVE Urine Nitrite NEGATIVE NEGATIVE Urine Bilirubin NEGATIVE NEGATIVE Urine Urobilinogen 1.0 < = 1.0 MG/DL Urine Leukocyte Esterase NEGATIVE NEGATIVE Urine RBC (Auto) 2+ H NEGATIVE Urine RBC RARE /HPF Urine WBC RARE /HPF Urine Squamous Epithelial Cells NONE /HPF Urine Crystals NONE /LPF Urine Bacteria NEGATIVE /HPF Urine Casts PRESENT /LPF Urine Hyaline Casts 2-5 H /LPF Urine Mucus NEGATIVE /LPF Urine Culture Indicated NO My Orders Orders - LENORE ATKINS APRN Cbc With Automated Diff (06/13/21 13:08) Ekg Tracing (06/13/21 13:08) Magnesium (06/13/21 13:08) Comprehensive Metabolic Panel (06/13/21 13:08) Ed Iv/Invasive Line Start (06/13/21 13:08) Lactated Ringers (Lr 1000 Ml Iv Solution (06/13/21 13:15) Manual Differential (06/13/21 13:05) Ua Culture If Indicated (06/13/21 13:34) Chest 1 View, Ap/Pa Only (06/13/21 13:34) Straight Cath (Urinary) (06/13/21 13:34) Finn Cath (06/13/21 13:37) Vital Signs/I&O 06/13/21 13:02 Temp 36.0 Pulse 102 Resp 16 B/P (MAP) 194/81 (118) Pulse Ox 96 O2 Delivery Room Air Capillary Refill : Less Than 3 Seconds Blood Pressure Mean: 118 Departure Communication (Admissions) [address] Pepper on-call for Dr. Dallas. Will admit the patient for some IV normal saline, magnesium replacement. Patient wishes to be full CODE STATUS. NAME: ZECHARIAH ARRIAGA [facility] REC#: [id number] PT STATUS: REG ER : 1945 PHYSICIAN: LENORE ATKINS APRN ADMIT DATE: 06/13/21/ER Draft Date of Exam:06/13/21 CHEST 1 VIEW, AP/PA ONLY EXAMINATION: Chest 1 view HISTORY: weakness COMPARISON: 07/11/2016 FINDINGS: The lungs are clear without edema or pneumonia. No pleural effusion or pneumothorax. Heart size is normal. Shunt catheter projects over the chest. IMPRESSION: 1. Clear lungs. Dictated on workstation # [id number] Dict: 06/13/21 1409 Trans: 06/13/21 141 CV [id number] Interpreted by: CHANNING AWAD MD Electronically signed by: Impression Primary Impression: Dehydration with hyponatremia Disposition: ADMITTED INPATIENT Condition: Stable Admissions Decision to Admit Reason: Admit from ER (General) Decision to Admit/Date: Jun 13, 2021 Time/Decision to Admit Time: 14:19 Departure-Patient Inst. Referrals: MATTHEW THOMPSON MD (PCP/Family) Primary Care Physician LENORE ATKINS APRN Jun 13, 2021 13:25
[2021-06-13 13:31] LABS: ALBUMIN 3.3 GM/DL (3.2-4.5)
[2021-06-13 13:32] LABS: POTASSIUM 4.5 MMOL/L (3.6-5.0)
[2021-06-13 13:33] LABS: CALCIUM 9.3 MG/DL (8.5-10.1)
[2021-06-13 13:36] LABS: BILIRUBIN,TOTAL 0.5 MG/DL (0.1-1.0)
[2021-06-13 13:38] LABS: CREATININE SERUM 1.2 MG/DL (0.60-1.30)
[2021-06-13 13:40] LABS: MAGNESIUM 1.4 MG/DL (1.6-2.4)
[2021-06-13 13:44] LABS: ANISOCYTOSIS SLIGHT; BAND NEUTROPHILS 0 %; BASOPHILS % (MANUAL) 0 %; EOSINOPHILS % (MANUAL) 0 %; LYMPHOCYTES % (MANUAL) 6 %; MONOCYTES % (MANUAL) 4 %; NEUTROPHILS % (MANUAL) 90 %; POLYCHROMASIA SLIGHT
[2021-06-13 14:04] LABS: BILIRUBIN,URINE NEGATIVE (NEGATIVE); CLARITY,URINE SL CLOUDY; COLOR,URINE YELLOW; GLUCOSE, URINE (UA) NEGATIVE (NEGATIVE); KETONES,URINE NEGATIVE (NEGATIVE); LEUKOCYTE ESTERASE ,URINE NEGATIVE (NEGATIVE); NITRITE,URINE NEGATIVE (NEGATIVE); PROTEIN,URINE TRACE (NEGATIVE)
--- NOTE | 2021-06-13 14:12 | Diagnostic Imaging Report ---
EXAMINATION: Chest 1 view HISTORY: weakness COMPARISON: 07/11/2016 FINDINGS: The lungs are clear without edema or pneumonia. No pleural effusion or pneumothorax. Heart size is normal. Shunt catheter projects over the chest. IMPRESSION: 1. Clear lungs. Dictated by: Dictated on workstation # [id number]
[2021-06-13 14:18] LABS: BACTERIA,URINE NEGATIVE /HPF; RBC,URINE RARE /HPF; WBC,URINE RARE /HPF
[2021-06-13] MEDS ORDERED: CATHETER FLUSH 10 ML SYR IVP PRN (15:15)
[2021-06-13] MEDS: NS IV 1000 ML 1,000 ML IV SCH (15:38)
[2021-06-13] MEDS: MAGNESIUM 1 GM/100 ML IVPB IV SCH ×3 (15:38→17:35)
[2021-06-13] MEDS ORDERED: FLU QUAD HIGH DOSE 240 MCG/0.7 ML 2021-22 (FLUZONE) IM ONE (15:45)
[2021-06-13 15:51] VITALS: BP 136/61
[2021-06-13] MEDS: ONDANSETRON 4 MG/2 ML (SDV) Z0FRAN IV PRN (19:21)
[2021-06-13] MEDS: oxyCODONE/APAP 5/325MG (PERCOCET 5) TABLET PO PRN (19:38)
[2021-06-13 19:40] VITALS: BP 132/65
[2021-06-13 23:05] VITALS: BP 147/78
[2021-06-14 03:51] VITALS: BP 129/69
[2021-06-14 05:03] LABS: BASOPHILS % (AUTO) 0 % (0-10); EOSINOPHILS # (AUTO) 0.1 10^3/uL (0.0-0.3); EOSINOPHILS % (AUTO) 1 % (0-10)
[2021-06-14 05:05] LABS: HEMATOCRIT 30 % (35-52); HEMOGLOBIN 9.9 g/dL (11.5-16.0); LYMPHOCYTES # (AUTO) 1.4 10^3/uL (1.0-4.0); LYMPHOCYTES % (AUTO) 16 % (12-44); MEAN CORPUSCULAR HEMOGLOBIN 30 pg (25-34); MEAN CORPUSCULAR HGB CONC 33 g/dL (32-36); MEAN CORPUSCULAR VOLUME 91 fL (80-99); MEAN PLATELET VOLUME 10.4 fL (9.0-12.2); MONOCYTES # (AUTO) 0.8 10^3/uL (0.0-1.0); MONOCYTES % (AUTO) 8 % (0-12); NEUTROPHILS # (AUTO) 6.8 10^3/uL (1.8-7.8); NEUTROPHILS % (AUTO) 74 % (42-75); PLATELET COUNT 115 10^3/uL (130-400); WHITE BLOOD COUNT 9.2 10^3/uL (4.3-11.0)
[2021-06-14 05:17] LABS: POTASSIUM 3.8 MMOL/L (3.6-5.0)
[2021-06-14 05:18] LABS: CALCIUM 7.9 MG/DL (8.5-10.1)
[2021-06-14 05:23] LABS: CREATININE SERUM 0.79 MG/DL (0.60-1.30)
[2021-06-14] MEDS: NS IV 1000 ML 1,000 ML IV SCH ×3 (05:43→21:15)
[2021-06-14 08:12] VITALS: BP 127/58
[2021-06-14] MEDS: DOCUSATE SODIUM 100 MG (COLACE) CAP PO SCH (08:28)
[2021-06-14] MEDS: ONDANSETRON 4 MG/2 ML (SDV) Z0FRAN IV PRN (08:28)
--- NOTE | 2021-06-14 09:19 | History & Physical ---
History of Present Illness History of Present Illness Reason for visit/HPI PT IS A 76 Y/O FEMALE WHO IS KNOWN TO ME FROM CLINIC. 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 SHE HAD RECENT DX OF A T12 COMPRESSION FRACTURE FOR WHICH SHE WAS TAKING PERCOCET FOR PAIN CONTROL. Date of Admission Jun 13, 2021 at 14:23 I consulted on this patient on 06/14/21 09:15 Attending Physician Boy Dallas MD Admitting Physician Boy Dallas MD Consult Allergies and Home Medications Allergies Coded Allergies: Sulfa (Sulfonamide Antibiotics) (Unverified Allergy, Mild, 05/07/09) ampicillin (Unverified Allergy, Mild, 05/07/09) nitrofurantoin (Unverified Allergy, Mild, RASH, 09/26/17) codeine (Unverified Adverse Reaction, Mild, NAUSEA, 09/26/17) hydrocodone (Unverified Adverse Reaction, Mild, NAUSEA, 09/26/17) tramadol (Unverified Adverse Reaction, Mild, NAUSEA, 09/26/17) Patient Home Medication List Acetaminophen (Tylenol Extra Strength) 500 Mg Tablet, 1,000 MG PO Q6H Prescribed by: ALFIE WINKLER on 10/27/17 0831 Amitriptyline HCl (Amitriptyline HCl) 10 Mg Tablet, 10 MG PO HS, (Reported) Entered as Reported by: EVERETT GATES on 07/11/16 1301 Cephalexin (Keflex) 500 Mg Capsule, 500 MG PO TID Prescribed by: ALFIE WINKLER on 10/27/17 0831 Lovastatin (Lovastatin) 20 Mg Tablet, 20 MG PO HS, (Reported) Entered as Reported by: EVERETT GATES on 07/11/16 1301 Mirabegron (Myrbetriq) 50 Mg Tab.er.24h, 50 MG PO DAILY, (Reported) Entered as Reported by: CIPRIANO MOSLEY on 10/26/17 0743 Spironolactone (Spironolactone) 100 Mg Tablet, 100 MG PO DAILY, (Reported) Entered as Reported by: EVERETT GATES on 07/11/16 1301 Trimethoprim (Trimethoprim) 100 Mg Tablet, 100 MG PO DAILY, (Reported) Entered as Reported by: CIPRIANO MOSLEY on 10/26/17 0743 Past Qpdyrrk-Ihwirc-Glhnso Hx Patient Social History Tobacco Use?: No Smoking Status: Never a Smoker Use of E-Cig and/or Vaping dev: No Substance use?: No Alcohol Use?: No Pt feels they are or have been: No Immunizations Up To Date Date of Influenza Vaccine: Jun 13, 2021 First/Initial COVID19 Vaccinat: 05/08/20 Second COVID19 Vaccination Mark: 06/05/20 Tetanus Booster (TDap): Unknown Hepatitis A: No Hepatitis B: No Date of Pneumonia Vaccine: Mar 14, 2017 Seasonal Allergies Seasonal Allergies: No Current Status status: No status: No Advance Directives: No Communicates: Verbally Primary Language: [place] Preferred Spoken Language: [place] Is interpretation needed?: No Past Medical History Surgeries: Brain Shunt, Section, Hysterectomy 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 0.0oz. 58.873561hp; 28.02 BMI Method:Stated Assessment/Plan Assessment and Plan HYPONATREMIA T 12 COMPRESSION FRACTURE BOY DALLAS MD Jun 14, 2021 09:19
[2021-06-14] MEDS ORDERED: SODIUM CHLORIDE 3% 100 ML IV SCH (09:30)
[2021-06-14] MEDS ORDERED: ONDA4TAB11 PO (10:49)
[2021-06-14] MEDS ORDERED: UBID100C44 PO (10:50)
[2021-06-14] MEDS ORDERED: CALC-250 PO (10:51)
[2021-06-14] MEDS ORDERED: ACET-2650 PO (10:52)
[2021-06-14] MEDS ORDERED: ROSU20TA32 PO (10:57)
[2021-06-14] MEDS ORDERED: OXYC1TAB11 PO (11:00)
[2021-06-14] MEDS: oxyCODONE/APAP 5/325MG (PERCOCET 5) TABLET PO PRN (14:51)
[2021-06-14 16:22] VITALS: BP 141/63
[2021-06-14 18:26] LABS: POTASSIUM 3.6 MMOL/L (3.6-5.0)
[2021-06-14] MEDS: AMITRIPTYLINE 10 MG (ELAVIL) TAB PO SCH (20:50)
--- NOTE | 2021-06-14 23:02 | Discharge Inst-Simple/Standard ---
Discharge Inst-Standard Reconcile Patient Problems Problems Reviewed?: Yes Discharge Medications New, Converted or Re-Newed RX: Other (see rx changes) Patient Instructions/Follow Up Plan of Care/Instructions/FU: 1 wk [facility] keep appt 06/15/[address] Elise at [facility] 4 states Activity as Tolerated: Yes Discharge Diet: Regular Diet Health Concerns: low sodium level weakness back pain Return to The Hospital For: any concern for worsenign weakness, confusion, dizziness, or other life threatening illness or injury Other Inst to Patient start drinking gatorade or powerade 12 ounces three times daily x 2 weeks then decrease to twice daily thereafter. get repeat sodium lab in 1 week Medication List: Active Scripts Active Spironolactone 100 Mg Tablet 100 Mg PO DAILY pt to decrease spionolactone to 1/2 pill daily Reported Oxycodone-Acetaminophen 5-325 (Oxycodone HCl/Acetaminophen) 1 Each Tablet 0.5-1 Each PO Q8H PRN MDD 6 Rosuvastatin Calcium 20 Mg Tablet 20 Mg PO HS Tylenol Arthritis (Acetaminophen) 650 Mg Tablet.er 650 Mg PO DAILY PRN Vitamin D3 (Cholecalciferol (Vitamin D3)) 125 Mcg Tablet 125 Mcg PO DAILY Co Q-10 (Ubidecarenone) 100 Mg Capsule 100 Mg PO HS Ondansetron Odt (Ondansetron) 4 Mg Tab.rapdis 4 Mg PO Q6H PRN Trimethoprim 100 Mg Tablet 100 Mg PO DAILY Myrbetriq (Mirabegron) 50 Mg Tab.er.24h 50 Mg PO DAILY Amitriptyline HCl 10 Mg Tablet 5 Mg PO BID TAKES 1/2 OF (10MG) TAB Lab results: Laboratory Tests Test 06/14/21 04:45 06/14/21 18:05 Range/Units White Blood Count 9.2 4.3-11.0 10^3/uL Red Blood Count 3.35 L 3.80-5.11 10^6/uL Hemoglobin 9.9 L 11.5-16.0 g/dL Hematocrit 30 L 35-52 % Mean Corpuscular Volume 91 80-99 fL Mean Corpuscular Hemoglobin 30 25-34 pg Mean Corpuscular Hemoglobin Concent 33 32-36 g/dL Red Cell Distribution Width 14.4 10.0-14.5 % Platelet Count 115 L 130-400 10^3/uL Mean Platelet Volume 10.4 9.0-12.2 fL Immature Granulocyte % (Auto) 1 % Neutrophils (%) (Auto) 74 42-75 % Lymphocytes (%) (Auto) 16 12-44 % Monocytes (%) (Auto) 8 0-12 % Eosinophils (%) (Auto) 1 0-10 % Basophils (%) (Auto) 0 0-10 % Neutrophils # (Auto) 6.8 1.8-7.8 10^3/uL Lymphocytes # (Auto) 1.4 1.0-4.0 10^3/uL Monocytes # (Auto) 0.8 0.0-1.0 10^3/uL Eosinophils # (Auto) 0.1 0.0-0.3 10^3/uL Basophils # (Auto) 0.0 0.0-0.1 10^3/uL Immature Granulocyte # (Auto) 0.1 0.0-0.1 10^3/uL Percent Immature Platelet Fraction 3.8 0.0-7.6 % Sodium Level 127 L 129 L 135-145 MMOL/L Potassium Level 3.8 3.6 3.6-5.0 MMOL/L Chloride Level 98 100 98-107 MMOL/L Carbon Dioxide Level 19 L 21 21-32 MMOL/L Anion Gap 10 8 5-14 MMOL/L Blood Urea Nitrogen 20 H 7-18 MG/DL Creatinine 0.79 0.60-1.30 MG/DL Estimat Glomerular Filtration Rate 77 BUN/Creatinine Ratio 25 Glucose Level 94 70-105 MG/DL Calcium Level 7.9 L 8.5-10.1 MG/DL Magnesium Level 2.4 1.6-2.4 MG/DL My orders: Orders - BOY FISHER MD Diet Order UD (06/14/21 09:20) Cbc No Diff (06/15/21 05:00) Sodium Chloride 3% (Hypertonic Sodium Ch (06/14/21 09:30) Basic Metabolic Panel (06/15/21 05:00) Electrolytes (06/14/21 18:00) Amitriptyline Tablet (Elavil Tablet) (06/14/21 21:00) Spironolactone Tablet (Aldactone Tablet) (06/15/21 09:00) (Nf) Mirabegron (Myrbetriq) (06/15/21 09:00) (Nf) Trimethoprim (06/15/21 09:00) BOY FISHER MD Jun 14, 2021 23:02
[2021-06-14] MEDS ORDERED: SPIR100T4 PO (23:03)
[2021-06-15 00:09] VITALS: BP 146/77
[2021-06-15 05:54] LABS: HEMOGLOBIN 9.7 g/dL (11.5-16.0); MEAN PLATELET VOLUME 10.1 fL (9.0-12.2)
[2021-06-15 05:56] LABS: WHITE BLOOD COUNT 10.1 10^3/uL (4.3-11.0)
[2021-06-15 06:08] LABS: POTASSIUM 3.7 MMOL/L (3.6-5.0)
[2021-06-15 06:09] LABS: CALCIUM 7.6 MG/DL (8.5-10.1)
[2021-06-15 06:13] LABS: CREATININE SERUM 0.65 MG/DL (0.60-1.30)
[2021-06-15] MEDS: NS IV 1000 ML 1,000 ML IV SCH (07:35)
[2021-06-15 07:46] VITALS: BP 135/60
[2021-06-15] MEDS ORDERED: MIRABEGRON 25 MG TAB (MYRBETRIQ) PO SCH (08:00)
[2021-06-15] MEDS: AMITRIPTYLINE 10 MG (ELAVIL) TAB PO SCH (08:22)
[2021-06-15] MEDS: DOCUSATE SODIUM 100 MG (COLACE) CAP PO SCH (08:22)
[2021-06-15] MEDS ORDERED: TRIMETHOPRIM 100 MG PO SCH (09:00)
[2021-06-15] MEDS ORDERED: SPIRONOLACTONE 100 MG (ALDACTONE) TABLET PO SCH (09:00)
== END 2021-06-15 09:00 | disposition home or self-care (01) | DRG 641 ==
LOC: EDUNIT# 12:57 → ER 12:58 → 4TH 14:23
PROVIDERS: ADMIT Family Medicine; ATTEND Family Medicine
DX: E87.1 Hypo-osmolality and hyponatremia (principal); S22.089A Unspecified fracture of T11-T12 vertebra, initial encounter for closed fracture; E86.0 Dehydration; E78.00 Pure hypercholesterolemia, unspecified; I10 Essential (primary) hypertension; Z98.2 Presence of cerebrospinal fluid drainage device; R53.81 Other malaise; R26.9 Unspecified abnormalities of gait and mobility
CPT/HCPCS: 36415; 51702; 71045; 80048; 80051; 80053; 81000; 83735; 85007; 85025; 85027; 93005

== ENCOUNTER 2021-07-03 13:23 | Inpatient (IN) | payer MEDICARE ==
[~2021-07-03] VITALS: Ht 152 cm; Wt 64.6 kg
[~2021-07-03 13:23] MED LIST changes: +ACET-2650 PO; +CALC-250 PO; +ONDA4TAB11 PO; +OXYC1TAB11 PO; +ROSU20TA32 PO; +UBID100C44 PO
[2021-07-03] MEDS ORDERED: ONDANSETRON 4 MG/2 ML (SDV) Z0FRAN IVP ONE (14:15)
[2021-07-03] MEDS ORDERED: NS IV 1000 ML 1,000 ML IV SCH (14:15)
[2021-07-03 14:29] LABS: BASOPHILS # (AUTO) 0.1 10^3/uL (0.0-0.1); BASOPHILS % (AUTO) 1 % (0-10); EOSINOPHILS % (AUTO) 0 % (0-10); HEMATOCRIT 32 % (35-52); HEMOGLOBIN 10.3 g/dL (11.5-16.0); LYMPHOCYTES # (AUTO) 1.9 10^3/uL (1.0-4.0); LYMPHOCYTES % (AUTO) 9 % (12-44); MEAN CORPUSCULAR HEMOGLOBIN 29 pg (25-34); MEAN CORPUSCULAR HGB CONC 32 g/dL (32-36); MEAN CORPUSCULAR VOLUME 90 fL (80-99); MEAN PLATELET VOLUME 9.5 fL (9.0-12.2); MONOCYTES # (AUTO) 1.4 10^3/uL (0.0-1.0); MONOCYTES % (AUTO) 6 % (0-12); NEUTROPHILS # (AUTO) 18.3 10^3/uL (1.8-7.8); NEUTROPHILS % (AUTO) 83 % (42-75); PLATELET COUNT 345 10^3/uL (130-400); WHITE BLOOD COUNT 22.1 10^3/uL (4.3-11.0)
[2021-07-03 14:47] LABS: ALBUMIN 3.2 GM/DL (3.2-4.5)
[2021-07-03 14:48] LABS: POTASSIUM 4.3 MMOL/L (3.6-5.0)
--- NOTE | 2021-07-03 14:49 | ED GI ---
General Chief Complaint: General Problems/Pain Stated Complaint: DARK N/V,STOOL,WONT EAT OR DRINK Nursing Triage Note: PT TO RM 10 VIA WC W C/O NAUSEA, VOMITING DARK EMESIS, AND DARK STOOLS X3 DAYS. PT DAUGHTER REPORTS PT HAS NOT BEEN EATING OR DRINKING WELL X3 DAYS. PT ALERT DURING TRIAGE, DENIES PAIN. Source of Information: Patient, Family Exam Limitations: Other (mental status) (TJ CHISHOLM MED STUDENT) History of Present Illness Date Seen by Provider: Jul 03, 2021 Time Seen by Provider: 14:25 Initial Comments Patient is a 76 year old female who presents with a 3-4 day history of coffee ground emesis and black/tarry stools. Reports that she had a back surgery about two weeks ago at [facility] and subsequently went on a trip to [place] for vacation. She has not been eating or drinking much for the last three days and has had no appetite. Denies taking any acid suppressors or pepto bismol. Denies chest pain, SOB, fevers, chills, sick contacts, and blurry vision. Reports worsening confusion over the last 3 days and at this time is disoriented to time, situation, and place. She is very fatigued and was unable to reposition herself in bed without assistance. Patient is poor historian at present and daughter is providing history. Denies taking NSAIDS or blood thinners at home. Denies any history of afib or GI bleeds in the past. Timing/Duration: 3-4 Days Activities at Onset: None Associated Symptoms: No Back Pain, No Chest Pain, No Fever/Chills; Fatigue, Nausea/Vomiting; No Rash; Weakness (TJ CHISHOLM MED STUDENT) Initial Comments I have reviewed and agree with the medical student's documentation and MO. I have also performes an HPT, ROS and history and physical examination. (DOMINIQUE ALVES MD) Allergies and Home Medications Allergies Coded Allergies: Sulfa (Sulfonamide Antibiotics) (Unverified Allergy, Mild, 05/07/09) ampicillin (Unverified Allergy, Mild, 05/07/09) nitrofurantoin (Unverified Allergy, Mild, RASH, 09/26/17) codeine (Unverified Adverse Reaction, Mild, NAUSEA, 09/26/17) hydrocodone (Unverified Adverse Reaction, Mild, NAUSEA, 09/26/17) tramadol (Unverified Adverse Reaction, Mild, NAUSEA, 09/26/17) Patient Home Medication List Home Medication List Reviewed: Yes (DOMINIQUE ALVES MD) Acetaminophen (Tylenol Arthritis) 650 Mg Tablet.er, 650 MG PO DAILY PRN for PAIN-MILD (1-4), (Reported) Entered as Reported by: JOSE MARTIN GREEN on 06/14/21 1052 Amitriptyline HCl (Amitriptyline HCl) 10 Mg Tablet, 5 MG PO BID, (Reported) Entered as Reported by: EVERETT GATES on 07/11/16 1301 Cholecalciferol (Vitamin D3) (Vitamin D3) 125 Mcg Tablet, 125 MCG PO DAILY, (Reported) Entered as Reported by: JOSE MARTIN GREEN on 06/14/21 1051 Mirabegron (Myrbetriq) 50 Mg Tab.er.24h, 50 MG PO DAILY, (Reported) Entered as Reported by: CIPRIANO MOSLEY on 10/26/17 0743 Ondansetron (Ondansetron Odt) 4 Mg Tab.rapdis, 4 MG PO Q6H PRN for NAUSEA/VOMITING, (Reported) Entered as Reported by: JOSE MARTIN GREEN on 06/14/21 1049 Oxycodone HCl/Acetaminophen (Oxycodone-Acetaminophen 5-325) 1 Each Tablet, 0.5-1 EACH PO Q8H PRN for PAIN-SEVERE, (Reported) Entered as Reported by: JOSE MARTIN GREEN on 06/14/21 1100 Rosuvastatin Calcium (Rosuvastatin Calcium) 20 Mg Tablet, 20 MG PO HS, (Reported) Entered as Reported by: JOSE MARTIN GREEN on 06/14/21 1057 Spironolactone (Spironolactone) 100 Mg Tablet, 100 MG PO DAILY Prescribed by: BOY DALLAS on 06/14/21 2303 Trimethoprim (Trimethoprim) 100 Mg Tablet, 100 MG PO DAILY, (Reported) Entered as Reported by: CIPRIANO MOSLEY on 10/26/17 0743 Ubidecarenone (Co Q-10) 100 Mg Capsule, 100 MG PO HS, (Reported) Entered as Reported by: JOSE MARTIN GREEN on 06/14/21 1050 Review of Systems Review of Systems Constitutional: No chills, No diaphoresis, No fever; malaise, weakness EENTM: No Blurred Vision, No Double Vision Respiratory: Denies Cough, Denies Shortness of Air Cardiovascular: Denies Chest Pain, Denies Edema, Denies Irregular Heart Rate, Denies Palpitations Gastrointestinal: Denies Constipated; Diarrhea (dark black in appearance), Nausea, Poor Appetite, Vomiting (coffee ground emesis ) Genitourinary: Denies Burning, Denies Discharge, Denies Drainage, Denies Flank Pain Musculoskeletal: back pain (recent back surgery ); No joint pain Psychiatric/Neurological: Denies Anxiety, Denies Depressed, Denies Headache, Denies Seizure Endocrine: Denies Excessive Sweating, Denies Flushing Hematologic/Lymphatic: See HPI; Denies Easy Bleeding, Denies Easy Bruising (TJ CHISHOLM TISSUELAB STUDENT) All Other Systems Reviewed Negative Unless Noted: No (TJ CHISHOLM TISSUELAB STUDENT) Past Pecryit-Wldvrw-Kkbujm Hx Patient Social History Tobacco Use?: No Smoking Status: Never a Smoker Smokeless Tobacco Frequency: Never a User Use of E-Cig and/or Vaping dev: No Substance use?: No Alcohol Use?: No (FLACA CHISHOLMGoozzy STUDENT) Immunizations Up To Date Tetanus Booster (TDap): Less than 5yrs Influenza Vaccine Up-to-Date: No; Not Current First/Initial COVID19 Vaccinat: 05/08/20 Second COVID19 Vaccination Mark: 06/05/20 Third COVID19 Vaccination Date: 02/18/21 COVID19 Vaccine Yard Driver: GIVTEDAlberto (FLACA CHISHOLMGoozzy PAULA) Seasonal Allergies Seasonal Allergies: No (TJ CHISHOLM TISSUELAB PAULA) Past Medical History Surgery/Hospitalization HX: shunt in head Surgeries: Yes (C/SX3, brain shunt, d&c, Recent back surgery) Brain Shunt, Section, Hysterectomy Respiratory: No Cardiac: Yes High Cholesterol, Hypertension Neurological: No (HYDROCEPHALUS REQUIRING BRAIN SHUNT PLACED AT [facility] 11/2016) 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 Sexually Transmitted Disease: No Genitourinary: No Gastrointestinal: No Musculoskeletal: No Endocrine: No HEENT: No Cancer: Yes (PRECANCEROUS SPOTS REMOVED) Skin, Melanoma Psychosocial: No Integumentary: No Blood Disorders: No (TJ CHISHOLM TISSUELAB STUDENT) Family Medical History Asthma 19 FATHER Hypertension 19 FATHER Kidney disease G8 SISTER (KIDNEY CANCER) No Pertinent Family Hx (TJ CHISHOLM STUDENT) Physical Exam Vital Signs Vital Signs - First Documented 07/03/21 14:00 Temp 36.0 Pulse 105 Resp 20 B/P (MAP) 139/71 (93) Pulse Ox 98 O2 Delivery Room Air (DOMINIQUE ALVES MD) Vital Signs Capillary Refill : Less Than 3 Seconds (TJ CHISHOLM STUDENT) Height/Weight/BMI Height: 5'0.00" Weight: 130lbs. 0.0oz. 58.594529xl; 25.00 BMI Method:Stated General Appearance: WD/WN, no apparent distress HEENT: PERRL/EOMI, pharynx normal Respiratory: chest non-tender, lungs clear, normal breath sounds, no respiratory distress Cardiovascular: normal peripheral pulses, tachycardia, other (BLE edema up to mid tibia 2+ pitting) Peripheral Pulses: 2+ Radial Pulses (R), 2+ Radial Pulses (L) Gastrointestinal: normal bowel sounds, non tender, soft; No tenderness Extremities: no calf tenderness, normal capillary refill, pedal edema, swelling (BLE) Back: no CVA tenderness, other (dressing intact over lower thoracic vertebrae) Neurologic/Psychiatric: alert, disoriented x 3 Skin: warm/dry, pallor Lymphatic: no adenopathy (Head and Neck) (TJ CHISHOLM MED STUDENT) Progress/Results/Core Measures Results/Orders Lab Results Laboratory Tests Test 07/03/21 14:21 07/03/21 15:48 Range/Units White Blood Count 22.1 H 4.3-11.0 10^3/uL Red Blood Count 3.58 L 3.80-5.11 10^6/uL Hemoglobin 10.3 L 11.5-16.0 g/dL Hematocrit 32 L 35-52 % Mean Corpuscular Volume 90 80-99 fL Mean Corpuscular Hemoglobin 29 25-34 pg Mean Corpuscular Hemoglobin Concent 32 32-36 g/dL Red Cell Distribution Width 15.2 H 10.0-14.5 % Platelet Count 345 130-400 10^3/uL Mean Platelet Volume 9.5 9.0-12.2 fL Immature Granulocyte % (Auto) 2 % Neutrophils (%) (Auto) 83 H 42-75 % Lymphocytes (%) (Auto) 9 L 12-44 % Monocytes (%) (Auto) 6 0-12 % Eosinophils (%) (Auto) 0 0-10 % Basophils (%) (Auto) 1 0-10 % Neutrophils # (Auto) 18.3 H 1.8-7.8 10^3/uL Lymphocytes # (Auto) 1.9 1.0-4.0 10^3/uL Monocytes # (Auto) 1.4 H 0.0-1.0 10^3/uL Eosinophils # (Auto) 0.0 0.0-0.3 10^3/uL Basophils # (Auto) 0.1 0.0-0.1 10^3/uL Immature Granulocyte # (Auto) 0.3 H 0.0-0.1 10^3/uL Neutrophils % (Manual) 76 % Lymphocytes % (Manual) 9 % Monocytes % (Manual) 6 % Eosinophils % (Manual) 0 % Basophils % (Manual) 0 % Band Neutrophils 5 % Nucleated Red Blood Cells 1 Reactive Lymphocytes 4 % Polychromasia MODERATE Anisocytosis MODERATE Spherocytes SLIGHT Prothrombin Time 14.0 12.2-14.7 SEC INR Comment 1.0 0.8-1.4 Activated Partial Thromboplast Time 30 24-35 SEC Sodium Level 128 L 135-145 MMOL/L Potassium Level 4.3 3.6-5.0 MMOL/L Chloride Level 92 L 98-107 MMOL/L Carbon Dioxide Level 21 21-32 MMOL/L Anion Gap 15 H 5-14 MMOL/L Blood Urea Nitrogen 46 H 7-18 MG/DL Creatinine 1.28 0.60-1.30 MG/DL Estimat Glomerular Filtration Rate 43 BUN/Creatinine Ratio 36 Glucose Level 136 H 70-105 MG/DL Calcium Level 9.0 8.5-10.1 MG/DL Corrected Calcium 9.6 8.5-10.1 MG/DL Total Bilirubin 0.5 0.1-1.0 MG/DL Aspartate Amino Transf (AST/SGOT) 15 5-34 U/L Alanine Aminotransferase (ALT/SGPT) 12 0-55 U/L Alkaline Phosphatase 83 40-136 U/L Total Protein 6.0 L 6.4-8.2 GM/DL Albumin 3.2 3.2-4.5 GM/DL Urine Color YELLOW Urine Clarity CLEAR Urine pH 6.0 5-9 Urine Specific [place] 1.025 H 1.016-1.022 Urine Protein TRACE H NEGATIVE Urine Glucose (UA) NEGATIVE NEGATIVE Urine Ketones NEGATIVE NEGATIVE Urine Nitrite POSITIVE H NEGATIVE Urine Bilirubin NEGATIVE NEGATIVE Urine Urobilinogen 0.2 < = 1.0 MG/DL Urine Leukocyte Esterase TRACE H NEGATIVE Urine RBC (Auto) TRACE-I H NEGATIVE Urine RBC RARE /HPF Urine WBC 10-25 H /HPF Urine Squamous Epithelial Cells NONE /HPF Urine Crystals NONE /LPF Urine Bacteria TRACE /HPF Urine Casts PRESENT /LPF Urine Hyaline Casts 0-2 H /LPF Urine Mucus NEGATIVE /LPF Urine Culture Indicated YES (DOMINIQUE ALVES MD) My Orders Orders - DOMINIQUE ALVES MD Ed Iv/Invasive Line Start (07/03/21 14:04) Cbc With Automated Diff (07/03/21 14:04) Comprehensive Metabolic Panel (07/03/21 14:04) Protime With Inr (07/03/21 14:04) Partial Thromboplastin Time (07/03/21 14:04) Occult Blood Stool (07/03/21 14:04) Ns Iv 1000 Ml (Sodium Chloride 0.9%) (07/03/21 14:15) Ondansetron Injection (Zofran Injectio (07/03/21 14:15) Type And Screen (07/03/21 14:17) Manual Differential (07/03/21 14:21) Ua Culture If Indicated (07/03/21 15:24) Urine Culture (07/03/21 15:48) Ceftriaxone 1 Gm Pre-Mix (Rocephin 1 Gm (07/03/21 16:45) Blood Culture (07/03/21 16:33) Lactic Acid Analyzer (07/03/21 16:33) Blood Culture (07/03/21 16:36) (DOMINIQUE ALVES MD) Medications Given in ED Current Medications Medications Dose Ordered Sig/Taj Route Start Time Stop Time Status Last Admin Dose Admin Ondansetron HCl 4 mg ONCE ONCE IVP 07/03/21 14:15 07/03/21 14:16 DC 07/03/21 14:26 4 MG (DOMINIQUE ALVES MD) Vital Signs/I&O 07/03/21 14:00 Temp 36.0 Pulse 105 Resp 20 B/P (MAP) 139/71 (93) Pulse Ox 98 O2 Delivery Room Air (DOMINIQUE ALVES MD) Blood Pressure Mean: 93 Progress Progress Note : Time: 16:53 Progress Note Discussed results with patient and her daughter. Will admit secondary to UTI and hyponatremia. They are comfortable with this plan of care. (DOMINIQUE ALVES MD) Departure Communication (Admissions) Time/Spoke to Admitting Phy: 16:[address] Dallas (DOMINIQUE ALVES MD) Impression Primary Impression: Altered mental status Qualified Codes: R41.82 - Altered mental status, unspecified Additional Impression: UTI (urinary tract infection) Qualified Codes: N30.01 - Acute cystitis with hematuria Disposition: ADMITTED INPATIENT Condition: Stable Admissions Decision to Admit Reason: Admit from ER (General) Decision to Admit/Date: Jul 03, 2021 Time/Decision to Admit Time: 16:50 (DOMINIQUE ALVES MD) Departure-Patient Inst. Referrals: BOY DALLAS MD (PCP/Family) Primary Care Physician Verification and Attestation of Medical Student E/M Service A medical student performed and documented this service in my presence. I reviewed and verified all information documented by the medical student and made modifications to such information, when appropriate. I personally performed the physical exam and medical decision making. Dominique Alves, Jul 03, 2021,16:55 (DOMINIQUE ALVES MD) TJ CHISHOLM MED STUDENT Jul 03, 2021 14:48 DOMINIQUE ALVES MD Jul 03, 2021 16:49
[2021-07-03 14:52] LABS: BILIRUBIN,TOTAL 0.5 MG/DL (0.1-1.0)
[2021-07-03 14:54] LABS: CREATININE SERUM 1.28 MG/DL (0.60-1.30)
[2021-07-03 15:01] LABS: ANISOCYTOSIS MODERATE; BAND NEUTROPHILS 5 %; BASOPHILS % (MANUAL) 0 %; EOSINOPHILS % (MANUAL) 0 %; LYMPHOCYTES % (MANUAL) 9 %; MONOCYTES % (MANUAL) 6 %; NEUTROPHILS % (MANUAL) 76 %; NUCLEATED RED BLOOD CELLS 1; POLYCHROMASIA MODERATE; REACTIVE LYMPHOCYTES 4 %; SPHEROCYTES SLIGHT
[2021-07-03 15:55] LABS: BILIRUBIN,URINE NEGATIVE (NEGATIVE); CLARITY,URINE CLEAR; COLOR,URINE YELLOW; GLUCOSE, URINE (UA) NEGATIVE (NEGATIVE); KETONES,URINE NEGATIVE (NEGATIVE); LEUKOCYTE ESTERASE ,URINE TRACE (NEGATIVE); NITRITE,URINE POSITIVE (NEGATIVE); PROTEIN,URINE TRACE (NEGATIVE)
[2021-07-03 16:02] LABS: BACTERIA,URINE TRACE /HPF; HYALINE CASTS, URINE 0-2 /LPF; RBC,URINE RARE /HPF
[2021-07-03] MEDS ORDERED: cefTRIAXone 1 GM PRE-MIX 50 ML IV ONE (16:45)
[2021-07-03 18:44] VITALS: BP 133/56
[2021-07-03] MEDS ORDERED: cefTRIAXone 1,000 MG VIAL IV SCH (18:45)
[2021-07-03] MEDS ORDERED: ONDANSETRON 4 MG/2 ML (SDV) Z0FRAN IVP PRN (18:45)
[2021-07-03] MEDS: NS IV 1000 ML 1,000 ML IV SCH (19:15)
[2021-07-03 20:00] VITALS: BP 136/80
[2021-07-04] VITALS: BP 128/77
[2021-07-04] MEDS: NS IV 1000 ML 1,000 ML IV SCH ×3 (03:11→23:34)
[2021-07-04 04:00] VITALS: BP 121/59
[2021-07-04 05:31] LABS: BASOPHILS # (AUTO) 0.1 10^3/uL (0.0-0.1); BASOPHILS % (AUTO) 0 % (0-10); EOSINOPHILS % (AUTO) 0 % (0-10); HEMATOCRIT 25 % (35-52); HEMOGLOBIN 7.9 g/dL (11.5-16.0); LYMPHOCYTES % (AUTO) 6 % (12-44); MEAN CORPUSCULAR HEMOGLOBIN 29 pg (25-34); MEAN CORPUSCULAR HGB CONC 32 g/dL (32-36); MEAN CORPUSCULAR VOLUME 92 fL (80-99); MEAN PLATELET VOLUME 9.5 fL (9.0-12.2); MONOCYTES % (AUTO) 6 % (0-12); NEUTROPHILS # (AUTO) 15.4 10^3/uL (1.8-7.8); NEUTROPHILS % (AUTO) 86 % (42-75); PLATELET COUNT 255 10^3/uL (130-400); WHITE BLOOD COUNT 17.9 10^3/uL (4.3-11.0)
[2021-07-04 05:42] LABS: POTASSIUM 3.6 MMOL/L (3.6-5.0)
[2021-07-04 05:43] LABS: CALCIUM 7.2 MG/DL (8.5-10.1)
[2021-07-04 05:48] LABS: CREATININE SERUM 0.77 MG/DL (0.60-1.30)
[2021-07-04 07:25] VITALS: BP 122/69
--- NOTE | 2021-07-04 09:30 | History & Physicial ---
History of Present Illness History of Present Illness Reason for visit/HPI PT IS A 76 Y/O FEMALE WHO IS KNOWN TO ME FROM CLINIC. SHE PRESENTED TO THE HOSPITAL STRAIGHT FROM A FAMILY VACATION TO [facility]. SHE APPARENTLY STARTED TO ACT ABNORMALLY ON THEIR LAST FEW DAYS IN [place]. SHE WAS NOT EATING OR DRINKING WELL AND SHE BECAME INCREASINGLY WEAK AND SOMEWHAT CONFUSED. PT ADMITTED TO NOT EATING "BECAUSE I DIDN'T FEEL LIKE IT" - THEN ADMITTED TO FEELING A LITTLE NAUSEATED AND THAT IS WHY SHE STOPPED EATING AND DRINKING. Date of Admission Jul 03, 2021 at 16:58 Date Seen by a Provider: Jul 04, 2021 Time Seen by a Provider: 10:30 I consulted on this patient on 07/04/21 09:27 Attending Physician Boy Dallas MD Admitting Physician Boy Dallas MD Consult DR. CRISTOBAL - GENERAL SURGERY Allergies and Home Medications Allergies Coded Allergies: Sulfa (Sulfonamide Antibiotics) (Unverified Allergy, Mild, 05/07/09) ampicillin (Unverified Allergy, Mild, 05/07/09) nitrofurantoin (Unverified Allergy, Mild, RASH, 09/26/17) codeine (Unverified Adverse Reaction, Mild, NAUSEA, 09/26/17) hydrocodone (Unverified Adverse Reaction, Mild, NAUSEA, 09/26/17) tramadol (Unverified Adverse Reaction, Mild, NAUSEA, 09/26/17) Patient Home Medication List Home Medication List Reviewed: Yes Acetaminophen (Tylenol Arthritis) 650 Mg Tablet.er, 650 MG PO DAILY PRN for PAIN-MILD (1-4), (Reported) Entered as Reported by: JOSE MARTIN GREEN on 06/14/21 1052 Last Action: Converted Amitriptyline HCl (Amitriptyline HCl) 10 Mg Tablet, 5 MG PO BID, (Reported) Entered as Reported by: EVERETT GATES on 07/11/16 1301 Last Action: Continued Cholecalciferol (Vitamin D3) (Vitamin D3) 125 Mcg Tablet, 125 MCG PO DAILY, (Reported) Entered as Reported by: JOSE MARTIN GREEN on 06/14/21 1051 Last Action: Held Mirabegron (Myrbetriq) 50 Mg Tab.er.24h, 50 MG PO DAILY, (Reported) Entered as Reported by: CIPRIANO MOSLEY on 10/26/17 0743 Last Action: Held Ondansetron (Ondansetron Odt) 4 Mg Tab.rapdis, 4 MG PO Q6H PRN for NAUSEA/VOMITING, (Reported) Entered as Reported by: JOSE MARTIN GREEN on 06/14/21 1049 Last Action: Held Rosuvastatin Calcium (Rosuvastatin Calcium) 20 Mg Tablet, 20 MG PO HS, (Reported) Entered as Reported by: JOSE MARTIN GREEN on 06/14/21 1057 Last Action: Held Spironolactone (Spironolactone) 100 Mg Tablet, 100 MG PO DAILY Prescribed by: BOY DALLAS on 06/14/21 2303 Last Action: Held Trimethoprim (Trimethoprim) 100 Mg Tablet, 100 MG PO DAILY, (Reported) Entered as Reported by: CIPRIANO MOSLEY on 10/26/17742 Last Action: Held Ubidecarenone (Co Q-10) 100 Mg Capsule, 100 MG PO HS, (Reported) Entered as Reported by: JOSE MARTIN GREEN on 06/14/21 1050 Last Action: Held Discontinued Medications Oxycodone HCl/Acetaminophen (Oxycodone-Acetaminophen 5-325) 1 Each Tablet, 0.5-1 EACH PO Q8H PRN for PAIN-SEVERE, (Reported) Discontinued Reason: No Longer Taking Entered as Reported by: JOSE MARTIN GREEN on 06/14/21 1100 Last Action: Discontinued Past Qekyrdr-Acighc-Tyjywy Hx Patient Social History Marrital Status: Living Status: LIVES AT HOME WITH SPOUSE Employed/Student: retired Smoking Status: Never a Smoker 2nd Hand Smoke Exposure: No Recent Hopitalizations: No Have you traveled recently?: No Where was recent travel?: [place] Alcohol Use?: No Pt feels they are or have been: No Immunizations Up To Date Tetanus Booster (TDap): Less than 5yrs Date of Pneumonia Vaccine: Mar 14, 2017 Date of Influenza Vaccine: Jun 13, 2021 Seasonal Allergies Seasonal Allergies: No Surgeries Yes (C/SX3, brain shunt, d&c, Recent back surgery) Brain Shunt, Section, Hysterectomy Respiratory No Cardiovascular Yes High Cholesterol, Hypertension Neurological No (HYDROCEPHALUS REQUIRING BRAIN SHUNT PLACED AT [facility] 11/2016) 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 System Hx 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 Disorders: No 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 Genitourinary No Gastrointestinal No Musculoskeletal No Endocrine History of Endocrine Disorders: No HEENT History of HEENT Disorders: No Cancer Yes (PRECANCEROUS SPOTS REMOVED) Skin, Melanoma Psychosocial History of Psychiatric Problem: No Integumentary History of Skin or Integumenta: No Blood Transfusions History of Blood Disorders: No Reviewed Nursing Assessment Reviewed/Agree w Nursing PMH: Yes Family Medical History Significant Family History: Asthma, Hypertension, Renal Disease Family Hx: Asthma 19 FATHER Hypertension 19 FATHER Kidney disease G8 SISTER (KIDNEY CANCER) Review of Systems Constitutional: chills, fever, malaise, weakness, weight loss EENTM: No hoarseness, No throat pain Respiratory: No cough, No dyspnea on exertion, No short of breath Cardiovascular: No chest pain; edema; No palpitations Gastrointestinal: No abdominal pain, No constipation; diarrhea, loss of appetite, nausea, vomiting Genitourinary: incontinence Musculoskeletal: No back pain; muscle weakness Skin: no symptoms reported Psychiatric/Neurological: Denies Anxiety, Denies Depressed; Weakness All Other Systems Reviewed Negative Unless Noted: Yes Physical Exam Vital Signs Vital Signs - First Documented 07/03/21 14:00 Temp 36.0 Pulse 105 Resp 20 B/P (MAP) 139/71 (93) Pulse Ox 98 O2 Delivery Room Air Capillary Refill : Less Than 3 Seconds Height, Weight, BMI Height: 5'0.00" Weight: 130lbs. 0.0oz. [id number]; 27.96 BMI Method:Stated General Appearance: WD/WN, Thin HEENT: PERRL/EOMI, Pharynx Normal Neck: Full Range of Motion, Normal Inspection, Non Tender, Supple Respiratory: Chest Non Tender, Lungs Clear, Normal Breath Sounds, No Accessory Muscle Use, No Respiratory Distress Cardiovascular: Regular Rate, Rhythm Gastrointestinal: Normal Bowel Sounds, Non Tender, Soft Rectal: Deferred Back: No Vertebral Tenderness, Other (SURGICAL SITE THORACIC SPINE) Extremity: Pedal Edema (NONPITTING) Neurologic/Psychiatric: Alert, Oriented x3, Normal Mood/Affect Skin: Normal Color, Warm/Dry Lymphatic: No Adenopathy Assessment/Plan Assessment and Plan ECOLI URINARY TRACT INFECTION ACUTE ANEMIA SUSPECT GI BLEED LEUKOCYTOSIS HYPONATREMIA GENERALIZED WEAKNESS HISTORY OF NORMAL PRESSURE HYDROCEPHALUS ECOLI URINARY TRACT INFECTION - PT ON ROCEPHIN, MONITOR CULTURE REPORT ACUTE ANEMIA - REPET HGB FROM ADMISSION DOWN TO 10 TO 7.9, NOW AT 7.1 - REPEAT AGAIN LATER THIS AFTERNOON, IF FURTHER DECLINES, WILL HAVE TO TRANSFUSE PATIENT. SUSPECT GI BLEED - CONSULT TO GENERAL SURGERY - WAITING ON OCCULT STOOLS. LEUKOCYTOSIS - IMPROVED FROM ADMISSION - DUE TO UTI - REPEAT CBC HYPONATREMIA - CONTINUE WITH FLUIDS, LABS WILL BE REPEATED IN MORNING. GENERALIZED WEAKNESS - DISCUSSED WITH PT AND HER FAMILY, IF SHE CANNOT OR WILL NOT PARTICIPATE IN THERAPY - WE WILL HAVE TO LOOK AT PT GOING TO A CORRECTION FOR SKILLED REHAB SINCE HER CANNOT SAFELY HANDLE HER AT HOME IN HER CURRENT CONDITION. HISTORY OF NORMAL PRESSURE HYDROCEPHALUS - SUPPORTIVE CARE AND THERAPY. DVT PROPHYLAXIS WITH SCD'S ONLY SINCE WE ARE SUSPECTING A GI BLEED GI PROPHYLAXIS WITH PPI AND PROBIOTICS Admission Diagnosis ECOLI URINARY TRACT INFECTION ACUTE ANEMIA SUSPECT GI BLEED LEUKOCYTOSIS HYPONATREMIA GENERALIZED WEAKNESS HISTORY OF NORMAL PRESSURE HYDROCEPHALUS Admission Status: Inpatient Order (span 2 midnights) Reason for Inpatient Admission: THE PT HAS ACUTE URINARY TRACT INFECTION WITH HYPONATREMIA AND ANEMIA, SHE WILL REQUIRE MORE THAN 2 MIDNIGHTS IN THE HOSPITAL FOR STABILIZATION AND FORMULATION WITH IMPLEMENTATION OF TREATMENT PLAN BOY DALLAS MD Jul 04, 2021 09:30
[2021-07-04 11:47] VITALS: BP 112/67
[2021-07-04 14:25] LABS: HEMOGLOBIN 7.1 g/dL (11.5-16.0)
[2021-07-04] MEDS ORDERED: ACETAMINOPHEN 325 MG TABLET PO PRN (15:30)
[2021-07-04 16:00] VITALS: BP 119/55
[2021-07-04] MEDS: PANTOPRAZOLE 40 MG (PROTONIX) VIAL IV SCH ×2 (16:14→19:54)
[2021-07-04] MEDS: cefTRIAXone 1 GM PRE-MIX 1 GM/50 ML BAG IV SCH (16:15)
--- NOTE | 2021-07-04 16:30 | CONSULTATION REPORT ---
DATE OF SERVICE: ATTENDING PRIMARY CARE PHYSICIAN: Kaitlynn Dallas MD. HISTORY OF PRESENT ILLNESS: The patient is a 76-year-old female, who presented to the Emergency Department with a 3 to 4-day history of coffee-ground emesis as well as black tarry stools. She reports that the black tarry stools started earlier about 2 weeks ago. She then states that she went to [place] and she stated that she had not been eating and drinking much and also had a loss of appetite. She does not report any classic symptoms of peptic ulcer disease or gastroesophageal reflux disease. During this timeframe, she also has had some intermittent episodes of confusion and disorientation. Upon presentation, she was also felt significantly fatigued and she was found to be anemic with a hemoglobin of 7.1. PAST MEDICAL HISTORY: Previous history of hydrocephalus requiring a shunt placement, history of melanoma, hypercholesterolemia, hypertension, degenerative joint disease. PAST SURGICAL HISTORY: section x3, cranial shunt placement, dilatation and curettage, back surgery, hysterectomy, excision of melanoma. ALLERGIES: SULFA, AMPICILLIN, NITROFURANTOIN, CODEINE, HYDROCODONE, TRAMADOL. MEDICATIONS: Amitriptyline 10 mg b.i.d., mirabegron 50 mg daily, Zofran p.r.n., oxycodone p.r.n., rosuvastatin 20 mg daily, spironolactone 100 mg daily, Trimethoprim 100 mg daily, ubidecarenone 100 mg daily. SOCIAL HISTORY: Negative smoke, negative alcohol. FAMILY HISTORY: Sister with renal cell cancer. VITAL SIGNS: Temperature 36.0, blood pressure 139/71, pulse 105, respirations 20, pulse ox 98% on room air. REVIEW OF SYSTEMS: Well-nourished female currently in no acute distress. She is not experiencing any shortness of breath or difficulty breathing. No chest pain, palpitations, diaphoresis. Intermittent episodes of nausea and vomiting that she did notice some coffee-ground dark coloration as well and she also has had some dark tarry stools in the past 2 weeks. No chest pain, palpitations, diaphoresis. No cough or sputum production. No fever, chills, no recent inadvertent weight loss. All other review of systems negative. PHYSICAL EXAMINATION: CHEST: A few scattered rales bilaterally. HEART: Regular, no murmurs. EXTREMITIES: No lower extremity edema, negative Homans sign. HEENT: No scleral icterus. NECK: No cervical lymphadenopathy. ABDOMEN: Soft, nondistended. There is mild discomfort more in the epigastric region; however, not severe. No peritoneal signs. No hernias. SKIN: Warm, dry. LABORATORY DATA: WBC 17.9, hemoglobin 7.1, hematocrit 23, platelets 255. BUN 33, creatinine 0.77. Liver function enzymes are normal. Urinalysis positive for nitrite, trace amounts of leukocyte esterase as well as trace bacteria. ASSESSMENT AND PLAN: A 76-year-old female with a symptomatic gastrointestinal bleeding of unknown etiology, but seems to be in the direction of an upper GI bleed; however, on this admission, we will proceed with an EGD and colonoscopy. Job ID: [id number] DocumentID: [id number] Dictated Date: 07/04/2021 15:30:19 Evaporator Operator Molasses Date: 07/04/2021 16:30:16 Dictated By: CLYDE CRISTOBAL MD [facility]
[2021-07-04] MEDS: LACTOBACILLUS ACIDOPHILUS (PROBIOTIC) CAPSULE PO SCH (17:21)
[2021-07-04 19:52] LABS: HEMOGLOBIN 7.5 g/dL (11.5-16.0)
[2021-07-04] MEDS: AMITRIPTYLINE 10 MG (ELAVIL) TAB PO SCH (19:54)
[2021-07-04 20:00] VITALS: BP 126/60
[2021-07-05] VITALS: BP 126/82
[2021-07-05 03:58] VITALS: BP 124/58
[2021-07-05 05:59] LABS: HEMATOCRIT 24 % (35-52); HEMOGLOBIN 7.2 g/dL (11.5-16.0); MEAN CORPUSCULAR HEMOGLOBIN 29 pg (25-34); MEAN CORPUSCULAR HGB CONC 30 g/dL (32-36); MEAN CORPUSCULAR VOLUME 94 fL (80-99); MEAN PLATELET VOLUME 9.2 fL (9.0-12.2); PLATELET COUNT 234 10^3/uL (130-400)
[2021-07-05 06:07] LABS: POTASSIUM 3.2 MMOL/L (3.6-5.0)
[2021-07-05 06:09] LABS: CALCIUM 6.8 MG/DL (8.5-10.1)
[2021-07-05 06:13] LABS: CREATININE SERUM 0.65 MG/DL (0.60-1.30)
[2021-07-05] MEDS: NS IV 1000 ML 1,000 ML IV SCH ×2 (06:29→08:02)
[2021-07-05 08:00] VITALS: BP 120/68
[2021-07-05] MEDS: PANTOPRAZOLE 40 MG (PROTONIX) VIAL IV SCH ×2 (08:03→20:28)
[2021-07-05] MEDS: AMITRIPTYLINE 10 MG (ELAVIL) TAB PO SCH ×2 (08:03→20:28)
[2021-07-05] MEDS: LACTOBACILLUS ACIDOPHILUS (PROBIOTIC) CAPSULE PO SCH ×3 (08:03→17:41)
--- NOTE | 2021-07-05 08:40 | Progress Note ---
Subjective Subjective Date Seen by Provider: Jul 05, 2021 Time Seen by Provider: 08:30 PT REPORTS THAT SHE IS FEELING A LITTLE BIT BETTER TODAY- STILL QUITE WEAK, STILL NOT EATING WELL. SHE DENIES CHEST PAIN, SHORTNESS OF BREATH, DOES HAVE SOME DIZZINESS WITH MOVEMENT/ATTEMPTS AT AMBULATION PT COMPLAINS OF SWELLING OF HER FEET Review of Systems General: No Chills; Fatigue, Malaise HEENT: No Dysphasia Pulmonary: No Dyspnea, No Cough Cardiovascular: No: Chest Pain, Palpitations Gastrointestinal: Abdominal Pain; No: Nausea Genitourinary: No Dysuria Musculoskeletal: back pain Neurological: Weakness, Confusion (INTERMITTENT) All Other Systems Reviewed All Other Systems Reviewed: Yes Objective Exam Vital Signs Vital Signs Date Time Temp Pulse Resp B/P (MAP) Pulse Ox O2 Delivery O2 Flow Rate FiO2 07/05/21 08:00 37.0 95 16 120/68 (85) 99 Room Air 07/05/21 07:38 99 Room Air 07/05/21 03:58 36.4 96 19 124/58 (80) 97 Room Air 07/05/21 00:00 35.8 93 16 126/82 (97) 98 Room Air 07/04/21 20:01 98 Room Air 07/04/21 20:00 36.7 98 22 126/60 (82) 95 Room Air 07/04/21 16:00 36.5 95 20 119/55 (76) 95 Room Air 07/04/21 11:47 36.4 98 20 112/67 (82) 99 Room Air I & O 07/05/21 07:00 Intake Total 1480 ml Output Total 550 ml Balance 930 ml General Appearance: WD/WN, Thin HEENT: PERRL/EOMI, Pharynx Normal Neck: Full Range of Motion, Normal Inspection, Non Tender, Supple Respiratory: Chest Non Tender, Lungs Clear, Normal Breath Sounds, No Accessory Muscle Use, No Respiratory Distress Cardiovascular: Regular Rate, Rhythm Gastrointestinal: Normal Bowel Sounds, Non Tender, Soft Rectal: Deferred Back: No Vertebral Tenderness, Other (SURGICAL SITE THORACIC SPINE) Extremity: Pedal Edema (NONPITTING) Neurologic/Psychiatric: Alert, Oriented x3, Normal Mood/Affect Skin: Normal Color, Warm/Dry Lymphatic: No Adenopathy Results Lab Laboratory Tests 07/04/21 14:08: Hemoglobin 7.1L, Hematocrit 23L 07/04/21 19:42: Hemoglobin 7.5L, Hematocrit 24L 07/05/21 05:49: Hemoglobin 7.2L, Hematocrit 24L, White Blood Count 16.0H, Red Blood Count 2.53L, Mean Corpuscular Volume 94, Mean Corpuscular Hemoglobin 29, Mean Corpuscular Hemoglobin Concent 30L, Red Cell Distribution Width 15.7H, Platelet Count 234, Mean Platelet Volume 9.2, Sodium Level 132L, Potassium Level 3.2L, Chloride Level 105, Carbon Dioxide Level 15L, Anion Gap 12, Blood Urea Nitrogen 20H, Creatinine 0.65, Estimat Glomerular Filtration Rate 91, BUN/Creatinine Ratio 31, Glucose Level 71, Calcium Level 6.8L Microbiology 07/03/21 Blood Culture - Preliminary, Resulted No growth 07/03/21 Urine Culture - Preliminary, Resulted Escherichia coli Assessment/Plan Assessment/Plan Admission Dx ECOLI URINARY TRACT INFECTION ACUTE ANEMIA SUSPECT GI BLEED LEUKOCYTOSIS HYPONATREMIA GENERALIZED WEAKNESS HISTORY OF NORMAL PRESSURE HYDROCEPHALUS Assessment and Plan ECOLI URINARY TRACT INFECTION ACUTE ANEMIA SUSPECT GI BLEED LEUKOCYTOSIS HYPONATREMIA GENERALIZED WEAKNESS HISTORY OF NORMAL PRESSURE HYDROCEPHALUS ECOLI URINARY TRACT INFECTION - PT ON ROCEPHIN, MONITOR CULTURE REPORT ACUTE ANEMIA - REPET HGB FROM ADMISSION DOWN TO 10 TO 7.9, NOW AT 7.1 - REPEAT AGAIN LATER THIS AFTERNOON, IF FURTHER DECLINES, WILL HAVE TO TRANSFUSE PATIENT. SUSPECT GI BLEED - CONSULT TO GENERAL SURGERY - WAITING ON OCCULT STOOLS. LEUKOCYTOSIS - IMPROVED FROM ADMISSION - DUE TO UTI - REPEAT CBC HYPONATREMIA - CONTINUE WITH FLUIDS, LABS WILL BE REPEATED IN MORNING. GENERALIZED WEAKNESS - DISCUSSED WITH PT AND HER FAMILY, IF SHE CANNOT OR WILL NOT PARTICIPATE IN THERAPY - WE WILL HAVE TO LOOK AT PT GOING TO A DETENTION FOR SKILLED REHAB SINCE HER CANNOT SAFELY HANDLE HER AT HOME IN HER CURRENT CONDITION. HISTORY OF NORMAL PRESSURE HYDROCEPHALUS - SUPPORTIVE CARE AND THERAPY. DVT PROPHYLAXIS WITH SCD'S ONLY SINCE WE ARE SUSPECTING A GI BLEED GI PROPHYLAXIS WITH PPI AND PROBIOTICS Admission Dx ECOLI URINARY TRACT INFECTION ACUTE ANEMIA SUSPECT GI BLEED LEUKOCYTOSIS HYPONATREMIA GENERALIZED WEAKNESS HISTORY OF NORMAL PRESSURE HYDROCEPHALUS Clinical Quality Measures Admission Status Admission Dx ECOLI URINARY TRACT INFECTION ACUTE ANEMIA SUSPECT GI BLEED LEUKOCYTOSIS HYPONATREMIA GENERALIZED WEAKNESS HISTORY OF NORMAL PRESSURE HYDROCEPHALUS DVT/VTE Risk/Contraindication: Contraindications-Pharm: Other *list below* Other: SUSPECT GI BLEED, WILL NOT ORDER ANTICOAGULATION BOY FISHER MD Jul 05, 2021 08:40
[2021-07-05] MEDS ORDERED: diphenhydrAMINE 50 MG/ML INJ (BENADRYL) IV PRN (08:45)
[2021-07-05] MEDS ORDERED: IRON DEXTRAN INJECTION 1,000 MG in NS (IVPB) 250 ML IV ONE (08:45)
[2021-07-05] MEDS ORDERED: RT-ALBUTEROL SULF 2.5 MG/3 ML PRE-MIX VIAL IH PRN (08:45)
[2021-07-05] MEDS ORDERED: NS IV 500 ML 500 ML IV SCH (08:45)
[2021-07-05] MEDS ORDERED: EPINEPHrine INJECTION 1 MG/ML AMP IM PRN (08:45)
[2021-07-05] MEDS ORDERED: IRON DEXTRAN INJECTION 25 MG in NS (IVPB) 5.75 ML IV ONE (08:45)
[2021-07-05] MEDS ORDERED: HYDROCORTISONE 100 MG/2 ML (Solu-CORTEF) VIAL IV PRN (08:45)
--- NOTE | 2021-07-05 10:15 | Physical Therapy Evaluation ---
PT Evaluation-General Medical Diagnosis Admission Date Jul 03, 2021 at 16:58 Medical Diagnosis: UTI/AMS/hyponatremia Onset Date: Jul 03, 2021 Therapy Diagnosis Therapy Diagnosis: generalized weakness/debility Height/Weight Height (Feet): 5 Height (Inches): 0.00 Weight (Pounds): 130 Weight (Ounces): 0.0 Precautions Precautions/Isolations: Fall Prevention, Standard Precautions Referral Physician: Burt Reason for Referral: Evaluation/Treatment Medical History Pertinent Medical History: HTN, Parkinson's Current History ER secondary to N&V and AMS Reviewed History: Yes Social History Home: Single Level Current Living Status: Spouse Prior Prior Level of Function SCALE: Activities may be completed with or without assistive devices. 5-Dxiinyludk-uelqpmf completes the activity by him/herself with no assistance from a helper. 5-Set-up or Clean-up Assistance-helper sets up or cleans up; patient completes activity. [place] assists only prior to or following the activity. 4-Supervision or Touching Assistance-helper provides verbal cues and/or touching/steadying and/or contact guard assistance as patient completes activity. Assistance may be provided throughout the activity or intermittently. 3-Partial/Moderate Assistance-helper does LESS THAN HALF the effort. [place] lifts, holds or supports trunk or limbs, but provides less than half the effort. 2-Substantial/Maximal Assistance-helper does MORE THAN HALF the effort. [place] lifts or holds trunk or limbs and provides more than half the effort. 7-Wsnliught-wtmzbq does ALL the effort. Patient does none of the effort to complete the activity. Or, the assistance of 2 or more helpers is required for the patient to complete the activity. If activity was not attempted, code reason: 7-Patient Refused. 9-Not Applicable-not attempted and the patient did not perform the activity before the current illness, exacerbation or injury. 10-Not Attempted due to Environmental Limitations-(lack of equipment, weather restraints, etc.). 88-Not Attempted due to Medical Conditions or Safety Concerns. Bed Mobility: 2 Transfers (B,C,W/C): 2 Gait: 9 (per spouse) Indoor Mobility (Ambulation): Not [place] Stairs: Not [place] Prior Devices Use: Manual wheelchair PT Evaluation-Current Subjective Patient agrees to PT. Spouse present Objective Patient Orientation: Confused Attachments: Finn Catheter, IV ROM/Strength ROM Lower Extremities bilateral LE WFL Strength Lower Extremities 3/5 grossly bilateral LE (unable to formally test due to confusion) Integumentary/Posture Integumentary refer to nursing notes Bladder Incontinence: Finn Cath Posture trunk flexed posture Neuromuscular (Tone, Coordination, Reflexes) Parkinson's Sensory Vision: Functional Hearing: Functional Transfers Lying to Sitting/Side of Bed(Q: 2 Sit to Stand (QC): 2 Chair/Fao-wl-Yqwsk Xfer(QC): 2 Gait Does the Patient Walk?: No and Walking Goal IS indicated Mode of Locomotion: Both Anticipated Mode of Locomotion: Both Distance: 4 steps Gait Assistive Device: FWW Comments/Gait Description shuffle gait sequence (noted fear of falling with patient impulsively sitting) Balance Sitting Static: Fair Sitting Dynamic: Fair Standing Static: Poor Standing Dynamic: Poor Assessment/Needs 76y.o. female, will benefit from skilled PT to address functional strength and mobility to improve current LOF. Patient, per spouse, does not ambulate PLOF. Rehab Potential: Guarded PT Cold Roll Catcher Goals Cold Roll Catcher Goals PT Cold Roll Catcher Goals Time Frame: Jul 10, 2021 Roll Left & Right (QC): 3 Sit to Lying (QC): 3 Lying-Sitting on Side/Bed(QC): 3 Sit to Stand (QC): 3 Chair/Jke-mf-Kclaf Xfer(QC): 3 Walk 10 feet (QC): 2 PT Plan Problem List Problem List: Activity Tolerance, Functional Strength, Safety, Balance, Gait, Transfer, Bed Mobility Treatment/Plan Treatment Plan: Continue Plan of Care Treatment Plan: Bed Mobility, Education, Functional Activity Reynaldo, Functional Strength, Gait, Safety, Therapeutic Exercise, Transfers Treatment Duration: Jul 10, 2021 Frequency: 6 times per week Estimated Hrs Per Day: .25 hour per day Time/GCodes Time In: 831 Time Out: 843 Total Billed Treatment Time: 12 Total Billed Treatment 1 visit EVModC 12 min NEVA SANCHES PT Jul 05, 2021 10:15
[2021-07-05] MEDS: POTASSIUM CL 10MEQ/50ML IVPB 50 ML IV SCH ×4 (10:27→13:37)
[2021-07-05] MEDS: MAGNESIUM CITRATE 300 ML BTL PO SCH ×2 (11:21→20:29)
[2021-07-05] MEDS ORDERED: SPIR100T4 PO (11:41)
[2021-07-05 12:00] VITALS: BP 129/76
[2021-07-05] MEDS: cefTRIAXone 1 GM PRE-MIX 1 GM/50 ML BAG IV SCH (15:45)
[2021-07-05 15:52] VITALS: BP 135/68
--- NOTE | 2021-07-05 18:38 | Progress Note-Pre Operative ---
Pre-Operative Progress Note H&P Reviewed The H&P was reviewed, patient examined and no changes noted. Date Seen by Provider: Jul 05, 2021 Time Seen by Provider: 18:00 Date H&P Reviewed: Jul 05, 2021 Time H&P Reviewed: 18:00 Pre-Operative Diagnosis: anemia, GI bleed CLYDE CRISTOBAL MD Jul 05, 2021 18:38
[2021-07-05 19:53] VITALS: BP 141/82
[2021-07-06] VITALS (11 sets, daily range): BP systolic 107–150; BP diastolic 51–83
[2021-07-06] MEDS: NS IV 1000 ML 1,000 ML IV SCH ×5 (00:52→23:54)
[2021-07-06 05:55] LABS: HEMATOCRIT 26 % (35-52); HEMOGLOBIN 8.1 g/dL (11.5-16.0); MEAN CORPUSCULAR HEMOGLOBIN 29 pg (25-34); MEAN CORPUSCULAR HGB CONC 31 g/dL (32-36); MEAN CORPUSCULAR VOLUME 92 fL (80-99); MEAN PLATELET VOLUME 9.1 fL (9.0-12.2); PLATELET COUNT 280 10^3/uL (130-400)
[2021-07-06 06:24] LABS: POTASSIUM 3.4 MMOL/L (3.6-5.0)
[2021-07-06 06:25] LABS: CALCIUM 7.5 MG/DL (8.5-10.1)
[2021-07-06 06:29] LABS: CREATININE SERUM 0.57 MG/DL (0.60-1.30)
[2021-07-06] MEDS: LACTOBACILLUS ACIDOPHILUS (PROBIOTIC) CAPSULE PO SCH ×3 (08:01→17:22)
[2021-07-06] MEDS: AMITRIPTYLINE 10 MG (ELAVIL) TAB PO SCH ×2 (08:01→21:18)
[2021-07-06] MEDS ORDERED: metroNIDAZOLE 500MG/100ML IVPB 100 ML IV SCH (08:45)
--- NOTE | 2021-07-06 08:45 | Progress Note ---
Subjective Subjective Date Seen by Provider: Jul 06, 2021 Time Seen by Provider: 08:45 PT REPORTS FEELING BETTER TODAY SHE WAS SITTING IN THE CHAIR AT THE SIDE OF THE BED TODAY. PT'S CDIFF CAME BACK POSITIVE, SHE REPORTS HER STOOLS HAVE IMPROVED A LITTLE, BUT THEY ARE VERY FOUL SMELLING. Review of Systems General: No Chills; Fatigue, Malaise, Appetite (DECREASED) HEENT: No Head Aches Pulmonary: No Dyspnea, No Cough Gastrointestinal: Abdominal Pain, Diarrhea; No: Nausea, Vomiting Neurological: Weakness, Confusion All Other Systems Reviewed All Other Systems Reviewed: Yes Objective Exam Vital Signs Vital Signs Date Time Temp Pulse Resp B/P (MAP) Pulse Ox O2 Delivery O2 Flow Rate FiO2 07/06/21 08:00 36.4 88 16 134/78 (96) 94 Room Air 07/06/21 03:48 36.3 85 18 120/71 (87) 96 Room Air 07/06/21 00:17 36.5 98 18 150/83 (105) 98 Room Air 07/05/21 20:00 Room Air 07/05/21 19:53 36.0 103 20 141/82 (101) 98 Room Air 07/05/21 15:52 35.6 94 18 135/68 (90) 99 Room Air 07/05/21 12:00 37.4 91 20 129/76 (93) 100 Room Air I & O 07/06/21 07:00 Intake Total 2256.25 ml Output Total 600 ml Balance 1656.25 ml General Appearance: No Apparent Distress, WD/WN, Thin HEENT: PERRL/EOMI, Pharynx Normal Neck: Full Range of Motion, Normal Inspection, Non Tender, Supple Respiratory: Chest Non Tender, Lungs Clear, Normal Breath Sounds, No Accessory Muscle Use, No Respiratory Distress Cardiovascular: Regular Rate, Rhythm Gastrointestinal: Normal Bowel Sounds, Non Tender, Soft Rectal: Deferred Back: No Vertebral Tenderness, Other (SURGICAL SITE THORACIC SPINE) Extremity: Pedal Edema (NONPITTING) Neurologic/Psychiatric: Alert, Oriented x3, Normal Mood/Affect Skin: Normal Color, Warm/Dry Lymphatic: No Adenopathy Results Lab Laboratory Tests 07/05/21 21:00: Stool Occult Blood Immunoassay POSITIVEH 07/06/21 05:36: White Blood Count 17.0H, Red Blood Count 2.84L, Hemoglobin 8.1L, Hematocrit 26L, Mean Corpuscular Volume 92, Mean Corpuscular Hemoglobin 29, Mean Corpuscular Hemoglobin Concent 31L, Red Cell Distribution Width 15.6H, Platelet Count 280, Mean Platelet Volume 9.1, Sodium Level 132L, Potassium Level 3.4L, Chloride Level 104, Carbon Dioxide Level 17L, Anion Gap 11, Blood Urea Nitrogen 15, Creatinine 0.57L, Estimat Glomerular Filtration Rate 94, BUN/Creatinine Ratio 26, Glucose Level 114H, Calcium Level 7.5L Microbiology 07/05/21 C. difficile GDH Antigen & Toxins - Final, Complete 07/03/21 Blood Culture - Preliminary, Resulted No growth 07/03/21 Urine Culture - Final, Complete Escherichia coli Assessment/Plan Assessment/Plan Admission Dx [facility] URINARY TRACT INFECTION ACUTE ANEMIA SUSPECT GI BLEED LEUKOCYTOSIS HYPONATREMIA GENERALIZED WEAKNESS HISTORY OF NORMAL PRESSURE HYDROCEPHALUS Assessment and Plan [facility] URINARY TRACT INFECTION ACUTE ANEMIA SUSPECT GI BLEED LEUKOCYTOSIS HYPONATREMIA GENERALIZED WEAKNESS HISTORY OF NORMAL PRESSURE HYDROCEPHALUS CDIFF COLITIS DIARRHEA [facility] URINARY TRACT INFECTION - PT ON ROCEPHIN, - SENSITIVE TO ROCEPHIN PER CULTURE REPORT, CONTINUE WITH THIS ANTIBIOTIC CDIFF COLITIS - STARTED FLAGYL THIS MORNING SINCE PT IS NPO, WILL TRANSITION TO ORAL VANC WHEN ABLE ACUTE ANEMIA - IMPROVED, IRON LEVEL SHOWED IRON DEFICIENCY - IV IRON INFUSION COMPLETED SUSPECT GI BLEED - CONSULT TO GENERAL SURGERY LEUKOCYTOSIS - IMPROVED FROM ADMISSION - DUE TO UTI - REPEAT CBC HYPONATREMIA - CONTINUE WITH FLUIDS, LABS WILL BE REPEATED IN MORNING. GENERALIZED WEAKNESS - DISCUSSED WITH PT AND HER FAMILY, IF SHE CANNOT OR WILL NOT PARTICIPATE IN THERAPY - WE WILL HAVE TO LOOK AT PT GOING TO A [facility] FOR SKILLED REHAB SINCE HER CANNOT SAFELY HANDLE HER AT HOME IN HER CURRENT CONDITION. HISTORY OF NORMAL PRESSURE HYDROCEPHALUS - SUPPORTIVE CARE AND THERAPY. DVT PROPHYLAXIS WITH SCD'S ONLY SINCE WE ARE SUSPECTING A GI BLEED GI PROPHYLAXIS WITH PPI AND PROBIOTICS Admission Dx [facility] URINARY TRACT INFECTION ACUTE ANEMIA SUSPECT GI BLEED LEUKOCYTOSIS HYPONATREMIA GENERALIZED WEAKNESS HISTORY OF NORMAL PRESSURE HYDROCEPHALUS Clinical Quality Measures Admission Status Admission Dx [facility] URINARY TRACT INFECTION ACUTE ANEMIA SUSPECT GI BLEED LEUKOCYTOSIS HYPONATREMIA GENERALIZED WEAKNESS HISTORY OF NORMAL PRESSURE HYDROCEPHALUS DVT/VTE Risk/Contraindication: Contraindications-Pharm: Other *list below* Other: SUSPECT GI BLEED, WILL NOT ORDER ANTICOAGULATION BOY FISHER MD Jul 06, 2021 08:45
[2021-07-06] MEDS ORDERED: AMITRIPTYLINE 10 MG (ELAVIL) TAB PO SCH (09:00)
--- NOTE | 2021-07-06 09:18 | Physical Therapy Daily Note ---
PT Daily Note-Current Subjective Patient had an incontinent bowel upon entering, requiring assistance to clean and change bedding/garment. Pain Comment: did not verbalize any pain Mental Status Patient Orientation: Person, Place, Situation Attachments: Finn Catheter, IV Transfers SCALE: Activities may be completed with or without assistive devices. 3-Nguvzkepge-vduiqhp completes the activity by him/herself with no assistance from a helper. 5-Set-up or Clean-up Assistance-helper sets up or cleans up; patient completes activity. [place] assists only prior to or following the activity. 4-Supervision or Touching Assistance-helper provides verbal cues and/or touching/steadying and/or contact guard assistance as patient completes activity. Assistance may be provided throughout the activity or intermittently. 3-Partial/Moderate Assistance-helper does LESS THAN HALF the effort. [place] lifts, holds or supports trunk or limbs, but provides less than half the effort. 2-Substantial/Maximal Assistance-helper does MORE THAN HALF the effort. [place] lifts or holds trunk or limbs and provides more than half the effort. 5-Hdtmuwufn-rdnccu does ALL the effort. Patient does none of the effort to complete the activity. Or, the assistance of 2 or more helpers is required for the patient to complete the activity. If activity was not attempted, code reason: 7-Patient Refused. 9-Not Applicable-not attempted and the patient did not perform the activity before the current illness, exacerbation or injury. 10-Not Attempted due to Environmental Limitations-(lack of equipment, weather restraints, etc.). 88-Not Attempted due to Medical Conditions or Safety Concerns. Roll Left & Right (QC): 3 Exercises Supine Ex: Ankle pumps, Heel Slides, Straight leg raise Supine Reps: 8 Treatments LE strengthening, ROM Assessment Current Status: Fair Progress Patient had difficulty following directions for the exercises. Patient had significant weakness with SLR. Patient was cleaned with nursing and PT assist with rolling, left in bed with clean sheets/garmets with call light near by. PT Accounts Payable Representative Goals Accounts Payable Representative Goals PT Halfway Goals Time Frame: Jul 10, 2021 Roll Left & Right (QC): 3 Sit to Lying (QC): 3 Lying-Sitting on Side/Bed(QC): 3 Sit to Stand (QC): 3 Chair/Yao-dd-Hpomw Xfer(QC): 3 Walk 10 feet (QC): 2 PT Plan Problem List Problem List: Activity Tolerance, Functional Strength, Safety, Balance, Gait, Transfer, Bed Mobility, ROM Treatment/Plan Treatment Plan: Continue Plan of Care Treatment Plan: Bed Mobility, Education, Functional Activity Reynaldo, Functional Strength, Gait, Safety, Therapeutic Exercise, Transfers Treatment Duration: Jul 10, 2021 Frequency: 6 times per week Estimated Hrs Per Day: .25 hour per day Time/GCodes Time In: 08 Time Out: 0844 Total Billed Treatment Time: 18 Total Billed Treatment 1 Visit EX 18' NEVA SANCHES PT Jul 06, 2021 09:18
[2021-07-06] MEDS: PANTOPRAZOLE 40 MG (PROTONIX) VIAL IV SCH ×2 (09:24→21:18)
[2021-07-06] MEDS: MAGNESIUM 1 GM/100 ML IVPB 100 ML IV SCH ×2 (09:26→11:52)
[2021-07-06] MEDS: MAGNESIUM CITRATE 300 ML BTL PO SCH (09:32)
[2021-07-06] MEDS ORDERED: LACTATED RINGERS 1,000 ML IV STA ×2 (14:32→15:24)
[2021-07-06] MEDS ORDERED: HURRICAINE EXT TUBE (BENZOCAINE) XX PRN ×2 (14:45→15:30)
[2021-07-06] MEDS ORDERED: PROPOFOL INJECTION 50 ML IV ONE (14:45)
[2021-07-06] MEDS ORDERED: LACTATED RINGERS 1,000 ML IV ONE (14:45)
[2021-07-06] MEDS ORDERED: LIDOCAINE JELLY 2% 6 ML SYRINGE MM PRN ×2 (14:45→15:30)
[2021-07-06] MEDS ORDERED: HURRICAINE EXT TUBE (BENZOCAINE) ONE (15:14)
[2021-07-06] MEDS ORDERED: LIDOCAINE JELLY 2% 6 ML SYRINGE ONE (15:24)
--- NOTE | 2021-07-06 16:37 | Progress Note-Post Operative ---
Post-Operative Progess Note Surgeon (s)/Licensed Club Manager (s) Surgeon CLYDE CRISTOBAL MD Licensed Club Manager: none Pre-Operative Diagnosis anemia, GI bleed Post-Operative Diagnosis esophageal candidiasis, smal HH(2cm), moderate gastritis. chronic stage 2 ext and int hemorrhoids, diffuse pseudomembranous plaques colon and rectum, mild sigmoid diverticulosis. Procedure & Operative Findings Date of Procedure 07/06/21 Procedure Performed/Findings EGD with bx. colonoscopy with bx. Anesthesia Type mac Estimated Blood Loss Estimated blood loss (mL): minimal Specimens/Packing Specimens Removed esophageal brushings, ge jxn, antrum, healed plyoric ulcer. rectum, sigmoid. CLYDE CRISTOBAL MD Jul 06, 2021 16:37
[2021-07-06] MEDS ORDERED: FLUCONAZOLE 200 MG/100 ML 100 ML IV NR (16:45)
[2021-07-06] MEDS: VANCOMYCIN 125 MG CAPSULE PO SCH ×2 (17:20→23:54)
[2021-07-06] MEDS: cefTRIAXone 1 GM PRE-MIX 1 GM/50 ML BAG IV SCH (17:20)
--- NOTE | 2021-07-06 19:29 | Anesthesia-General Post-Op ---
MAC Patient Condition Mental Status/LOC: Same as Preop Cardiovascular: Satisfactory Nausea/Vomiting: Absent Respiratory: Satisfactory Pain: Controlled Complications: Absent Post Op Complications Complications None Follow Up Care/Instructions Patient Instructions None needed. Anesthesiology Discharge Order Discharge Order Patient is doing well, no complaints, stable vital signs, no apparent adverse anesthesia problems. No complications reported per nursing. HILDA MEDLEY CRNA Jul 06, 2021 19:29
--- NOTE | 2021-07-06 20:34 | OPERATIVE REPORT ---
DATE OF SERVICE: 07/06/2021 ATTENDING PRIMARY CARE PHYSICIAN: Kaitlynn Dallas MD PREOPERATIVE DIAGNOSES: Gastroesophageal reflux disease, diarrhea, anemia. POSTOPERATIVE DIAGNOSES: Reflux esophagitis grade C, small hiatal hernia approximately 2 cm in size, moderate gastritis, esophageal candidiasis, chronic stage II external and internal hemorrhoids, diffuse pseudomembranous plaques throughout the rectum and colon consistent with Clostridium difficile colitis. PROCEDURE: EGD with biopsy, colonoscopy with biopsy. SURGEON: Clyde Cristobal MD ANESTHESIA: Monitored anesthesia care. ESTIMATED BLOOD LOSS: Minimal. FINDINGS: Same as postoperative diagnoses. DISPOSITION: The patient tolerated the procedure well. INDICATIONS: The patient is a 76-year-old female, who presented to the Emergency Department with a 3- to 4-day history of coffee-ground emesis as well as dark tarry stools. This started approximately 2 weeks ago. She states that she went on vacation to [place] and had not been feeling well and lost her appetite and had not been eating or drinking much at all. She does not report any classic symptoms of peptic ulcer disease; however, she has had anorexia as well as some nausea. During this timeframe, she has also had significant confusion and disorientation. She was also found to be anemic with a hemoglobin of 7.1. DESCRIPTION OF PROCEDURE: The patient was brought to the operating room, laid supine on the table. After adequate IV pain and sedative medications and monitored anesthesia care, the mouthpiece was applied. The endoscope was placed in the mouth, visualizing the pharynx and hypopharyngeal region. Vocal cords, epiglottis and vallecula identified and appeared to be normal. Endoscope was then gently intubated the esophageal opening and esophagus insufflated. The endoscope was then advanced through the first, second and third portion of esophagus. At the level of the distal esophagus, a white plaque likely consistent with esophageal candidiasis identified. Brushings were taken and sent for fungal culture. The endoscope was then advanced to the GE junction, a reflux esophagitis, Woodruff grade C identified. A biopsy was taken with forceps with visualization of good hemostasis. The endoscope was advanced in the stomach and endoscope retroflexed, visualizing a small hiatal hernia approximately 2 cm in size. There was a moderate gastritis noted. No formal ulcerations, polyps, or any neoplasms. There was some chronic inflammatory changes of the pylorus consistent with an old healed ulcer. A biopsy was taken of this region as well as the antrum to rule out H. pylori and GE junction. The endoscope was then slowly withdrawn while taking a second look and suctioning of residual air with no additional findings. A digital rectal examination was performed, which revealed chronic stage II external and internal hemorrhoids, not actively edematous nor inflamed and no bleeding. Normal suture tone was felt and there were no palpable masses. The endoscope was then intubated into the anus and rectum gently insufflated. The endoscope was then advanced to the valves of [place] of the rectum with pseudomembranous plaques diffuse throughout the rectum. This continued throughout the entirety of the sigmoid, descending, transverse and ascending colon to the cecum. This was consistent with Clostridium difficile colitis. There was also a mild sigmoid diverticulosis identified. The endoscope was then slowly withdrawn while taking a second look and suctioning residual air with no additional findings. The patient tolerated the procedure well. She will be started on therapy for Clostridium difficile with vancomycin 125 mg q.i.d. and we will also empirically start her on Diflucan 100 mg daily for two weeks. Job ID: [id number] DocumentID: [id number] Dictated Date: 07/06/2021 16:22:16 Outside Deliverer Date: 07/06/2021 20:33:21 Dictated By: CLYDE CRISTOBAL MD
[2021-07-07 04:00] VITALS: BP 128/73
[2021-07-07] MEDS: VANCOMYCIN 125 MG CAPSULE PO SCH ×3 (05:19→17:51)
[2021-07-07 05:43] LABS: HEMATOCRIT 27 % (35-52); HEMOGLOBIN 8.4 g/dL (11.5-16.0); MEAN CORPUSCULAR HEMOGLOBIN 29 pg (25-34); MEAN CORPUSCULAR HGB CONC 31 g/dL (32-36); MEAN CORPUSCULAR VOLUME 93 fL (80-99); MEAN PLATELET VOLUME 9.3 fL (9.0-12.2); PLATELET COUNT 314 10^3/uL (130-400); WHITE BLOOD COUNT 15.9 10^3/uL (4.3-11.0)
[2021-07-07 06:00] LABS: POTASSIUM 3.3 MMOL/L (3.6-5.0)
[2021-07-07 06:01] LABS: CALCIUM 7.2 MG/DL (8.5-10.1)
[2021-07-07 06:05] LABS: CREATININE SERUM 0.5 MG/DL (0.60-1.30)
[2021-07-07 07:30] VITALS: BP 122/66
--- NOTE | 2021-07-07 08:47 | Progress Note ---
Subjective Subjective Date Seen by Provider: Jul 07, 2021 Time Seen by Provider: 09:10 PT REPORTS THAT SHE IS FEELING BETTER TODAY. HER DTR REPORTS THAT SHE WOULD LIKE TO SEE HER MOM GO TO A [facility] FOR [facility]ILLED REHABILITATION ON DISCHARGE, THIS IS DIFFERENT THAN WHAT ZECHARIAH WAS STATING SHE WANTED, BUT THEN SHE ADMITS THAT SHE KNOWS SHE IS TOO WEAK TO SAFELY GO HOME. PT HAD MANY QUESTIONS ABOUT HER CASE/CONDITION, HOW SHE GOT CDIFF, ESOPHAGEAL CANDIDIASIS, AND THE RECURRENT UTI. Review of Systems General: Fatigue, Malaise, Appetite (DECREASED) HEENT: Sore Throat Pulmonary: No Dyspnea, No Cough, No Pleuritic Chest Pain Cardiovascular: Edema; No: Chest Pain, Palpitations, Orthopnea, Lt Headedness Gastrointestinal: Abdominal Pain, Diarrhea Genitourinary: Other (IBARRA IN PLACE) Neurological: Weakness, Confusion All Other Systems Reviewed All Other Systems Reviewed: Yes Objective Exam Vital Signs Vital Signs Date Time Temp Pulse Resp B/P (MAP) Pulse Ox O2 Delivery O2 Flow Rate FiO2 07/07/21 07:30 36.7 86 18 122/66 (84) 96 Room Air 07/07/21 04:00 36.4 83 20 128/73 (91) 95 Room Air 07/06/21 23:53 36.4 87 18 135/64 (87) 95 Room Air 07/06/21 20:32 36.2 82 16 132/72 (92) 95 Room Air 07/06/21 20:00 Room Air 07/06/21 17:01 36.8 79 20 132/62 (85) 98 Room Air 07/06/21 16:30 69 16 100 OxyMask 4 07/06/21 16:25 69 16 100 OxyMask 10 07/06/21 16:20 67 16 100 OxyMask 10 07/06/21 12:00 36.4 80 16 120/74 (89) 97 Room Air 07/06/21 10:52 36.4 88 94 I & O 07/07/21 06:59 Intake Total 600 ml Output Total 850 ml Balance -250 ml General Appearance: No Apparent Distress, WD/WN HEENT: PERRL/EOMI, Pharynx Normal Neck: Full Range of Motion, Normal Inspection, Non Tender, Supple Respiratory: Chest Non Tender, Lungs Clear, Normal Breath Sounds, No Accessory Muscle Use, No Respiratory Distress Cardiovascular: Regular Rate, Rhythm Gastrointestinal: Normal Bowel Sounds, Non Tender, Soft Rectal: Deferred Back: No Vertebral Tenderness, Other (SURGICAL SITE THORACIC SPINE) Extremity: Pedal Edema (NONPITTING) Neurologic/Psychiatric: Alert, Oriented x3, Normal Mood/Affect Skin: Normal Color, Warm/Dry Lymphatic: No Adenopathy Results Lab Laboratory Tests 07/07/21 05:25: White Blood Count 15.9H, Red Blood Count 2.94L, Hemoglobin 8.4L, Hematocrit 27L, Mean Corpuscular Volume 93, Mean Corpuscular Hemoglobin 29, Mean Corpuscular Hemoglobin Concent 31L, Red Cell Distribution Width 15.6H, Platelet Count 314, Mean Platelet Volume 9.3, Sodium Level 130L, Potassium Level 3.3L, Chloride Level 104, Carbon Dioxide Level 16L, Anion Gap 10, Blood Urea Nitrogen 11, Creatinine 0.50L, Estimat Glomerular Filtration Rate 97, BUN/Creatinine Ratio 22, Glucose Level 92, Calcium Level 7.2L Microbiology 07/05/21 C. difficile GDH Antigen & Toxins - Final, Complete 07/03/21 Blood Culture - Preliminary, Resulted No growth 07/03/21 Urine Culture - Final, Complete Escherichia coli Assessment/Plan Assessment/Plan Admission Dx [facility] URINARY TRACT INFECTION ACUTE ANEMIA SUSPECT GI BLEED LEUKOCYTOSIS HYPONATREMIA GENERALIZED WEAKNESS HISTORY OF NORMAL PRESSURE HYDROCEPHALUS Assessment and Plan [facility] URINARY TRACT INFECTION ACUTE ANEMIA SUSPECT GI BLEED LEUKOCYTOSIS HYPONATREMIA GENERALIZED WEAKNESS HISTORY OF NORMAL PRESSURE HYDROCEPHALUS CDIFF COLITIS ESOPHAGEAL CANDIDIASIS DIARRHEA [facility] URINARY TRACT INFECTION - PT ON ROCEPHIN, - SENSITIVE TO ROCEPHIN PER CULTURE REPORT, CONTINUE WITH THIS ANTIBIOTIC CDIFF COLITIS - STARTED FLAGYL INITIALLY DUE TO NPO STATUS, TRANSITIONED TO ORAL VANC 07/06/21 ESOPHAGEAL CANDIDIASIS - PT ON IV DIFLUCAN ACUTE ANEMIA - IMPROVED, IRON LEVEL SHOWED IRON DEFICIENCY - IV IRON INFUSION COMPLETED SUSPECT GI BLEED - CONSULT TO GENERAL SURGERY LEUKOCYTOSIS - IMPROVED FROM ADMISSION - DUE TO UTI, CDIFF, ESOPHAGEAL CANDIDAL INFECTION - REPEAT CBC HYPONATREMIA - CONTINUE WITH FLUIDS, LABS WILL BE REPEATED IN MORNING. GENERALIZED WEAKNESS - DISCUSSED WITH PT AND HER FAMILY - WE WILL HAVE TO LOOK AT PT GOING TO A [facility] FOR SKILLED REHAB SINCE HER CANNOT SAFELY HANDLE HER AT HOME IN HER CURRENT CONDITION. HISTORY OF NORMAL PRESSURE HYDROCEPHALUS - SUPPORTIVE CARE AND THERAPY. DVT PROPHYLAXIS WITH SCD'S ONLY SINCE WE ARE SUSPECTING A GI BLEED GI PROPHYLAXIS WITH PPI AND PROBIOTICS Admission Dx [facility] URINARY TRACT INFECTION ACUTE ANEMIA SUSPECT GI BLEED LEUKOCYTOSIS HYPONATREMIA GENERALIZED WEAKNESS HISTORY OF NORMAL PRESSURE HYDROCEPHALUS Clinical Quality Measures Admission Status Admission Dx [facility] URINARY TRACT INFECTION ACUTE ANEMIA SUSPECT GI BLEED LEUKOCYTOSIS HYPONATREMIA GENERALIZED WEAKNESS HISTORY OF NORMAL PRESSURE HYDROCEPHALUS DVT/VTE Risk/Contraindication: Contraindications-Pharm: Other *list below* Other: SUSPECT GI BLEED, WILL NOT ORDER ANTICOAGULATION BOY FISHER MD Jul 07, 2021 08:47
[2021-07-07] MEDS: LACTOBACILLUS ACIDOPHILUS (PROBIOTIC) CAPSULE PO SCH ×3 (08:52→17:51)
[2021-07-07] MEDS: AMITRIPTYLINE 10 MG (ELAVIL) TAB PO SCH ×2 (08:54→20:05)
[2021-07-07] MEDS: NS IV 1000 ML 1,000 ML IV SCH ×2 (08:54→20:42)
[2021-07-07] MEDS: PANTOPRAZOLE 40 MG (PROTONIX) VIAL IV SCH ×2 (08:58→20:05)
[2021-07-07] MEDS: FLUCONAZOLE 100 MG/50 ML 50 ML IV SCH (08:58)
[2021-07-07 11:33] VITALS: BP 144/77
--- NOTE | 2021-07-07 13:00 | Physical Therapy Daily Note ---
PT Daily Note-Current Subjective Pt agreeble to treatment. Primary complaint "I just feel louzy." Pt denies pain. Pt c/o fatigue with treatment. Daughter present and reports pt's ankles are swollen and they were told to keep them elevated in bed today. Mental Status Patient Orientation: Person, Place, Situation Attachments: Finn Catheter, IV Transfers SCALE: Activities may be completed with or without assistive devices. 4-Zfkjaczukw-lboaadi completes the activity by him/herself with no assistance from a helper. 5-Set-up or Clean-up Assistance-helper sets up or cleans up; patient completes activity. [place] assists only prior to or following the activity. 4-Supervision or Touching Assistance-helper provides verbal cues and/or touching/steadying and/or contact guard assistance as patient completes activity. Assistance may be provided throughout the activity or intermittently. 3-Partial/Moderate Assistance-helper does LESS THAN HALF the effort. [place] lifts, holds or supports trunk or limbs, but provides less than half the effort. 2-Substantial/Maximal Assistance-helper does MORE THAN HALF the effort. [place] lifts or holds trunk or limbs and provides more than half the effort. 3-Hphwdptox-iyjkrd does ALL the effort. Patient does none of the effort to c omplete the activity. Or, the assistance of 2 or more helpers is required for the patient to complete the activity. If activity was not attempted, code reason: 7-Patient Refused. 9-Not Applicable-not attempted and the patient did not perform the activity before the current illness, exacerbation or injury. 10-Not Attempted due to Environmental Limitations-(lack of equipment, weather restraints, etc.). 88-Not Attempted due to Medical Conditions or Safety Concerns. Pt required mod A to transfer to EOB and max A of 2 to transfer to supine. Exercises Supine Ex: Ankle pumps, Quad Set, Heel Slides, Short Arc Quads, Hip abd/add Supine Reps: 15 Treatments Pt required min A for LE therex. Pt able to count and keep track but fatigues easily with LE activities requiring frequent rest breaks. Pt sat EOB with mod- max A for bed mobility and scooting. Pt dangled EOB x 10'. Pt grew increasingly tired in sitting and was transferred to supine with max A. Pt LE were repositioned floating on pillows and elevated. Pt comfortable per report and call light in reach. Daughter present. Assessment Current Status: Fair Progress Pt fatigued very easily. Pt would benefit from continued therapy to improve functional mobility and restore PLOF. PT Fpc Goals Fpc Goals PT [place] Goals Time Frame: Jul 10, 2021 Roll Left & Right (QC): 3 Sit to Lying (QC): 3 Lying-Sitting on Side/Bed(QC): 3 Sit to Stand (QC): 3 Chair/Khb-ni-Ciwtx Xfer(QC): 3 Walk 10 feet (QC): 2 PT Plan Treatment/Plan Treatment Plan: Continue Plan of Care Treatment Plan: Bed Mobility, Education, Functional Activity Reynaldo, Functional Strength, Gait, Safety, Therapeutic Exercise, Transfers Treatment Duration: Jul 10, 2021 Frequency: 6 times per week Estimated Hrs Per Day: .25 hour per day Time/GCodes Time In: 1040 Time Out: 1115 Total Billed Treatment Time: 35 Total Billed Treatment 1, Ther ex 25', FA 10' ERICK BRICENO Jul 07, 2021 13:00
[2021-07-07 16:00] VITALS: BP 129/59
--- NOTE | 2021-07-07 17:13 | Progress Note ---
Subjective Date Seen by a Provider: Jul 07, 2021 Time Seen by a Provider: 17:00 Subjective/Events-last exam doing better. tolerating diet. more alert and less confusion today. Objective Exam Vital Signs Date Time Temp Pulse Resp B/P (MAP) Pulse Ox O2 Delivery O2 Flow Rate FiO2 07/07/21 16:00 35.9 88 18 129/59 (82) 95 Room Air 07/07/21 11:33 36.6 100 18 144/77 (99) 97 Room Air 07/07/21 08:00 Room Air 07/07/21 07:30 36.7 86 18 122/66 (84) 96 Room Air 07/07/21 04:00 36.4 83 20 128/73 (91) 95 Room Air 07/06/21 23:53 36.4 87 18 135/64 (87) 95 Room Air 07/06/21 20:32 36.2 82 16 132/72 (92) 95 Room Air 07/06/21 20:00 Room Air I & O 07/07/21 07:00 Intake Total 600 ml Output Total 850 ml Balance -250 ml Capillary Refill : Less Than 3 Seconds General Appearance: No Apparent Distress HEENT: PERRL/EOMI Neck: Full Range of Motion Respiratory: Chest Non Tender, Lungs Clear Cardiovascular: Regular Rate, Rhythm Gastrointestinal: normal bowel sounds, non tender, soft Extremity: Normal Capillary Refill Neurologic/Psychiatric: Alert, Oriented x3 Skin: Normal Color Lymphatic: No Adenopathy Results Lab Laboratory Tests 07/07/21 05:25: White Blood Count 15.9H, Red Blood Count 2.94L, Hemoglobin 8.4L, Hematocrit 27L, Mean Corpuscular Volume 93, Mean Corpuscular Hemoglobin 29, Mean Corpuscular Hemoglobin Concent 31L, Red Cell Distribution Width 15.6H, Platelet Count 314, Mean Platelet Volume 9.3, Sodium Level 130L, Potassium Level 3.3L, Chloride Level 104, Carbon Dioxide Level 16L, Anion Gap 10, Blood Urea Nitrogen 11, Creatinine 0.50L, Estimat Glomerular Filtration Rate 97, BUN/Creatinine Ratio 22, Glucose Level 92, Calcium Level 7.2L 07/07/21 08:45: Magnesium Level 2.5H Microbiology 07/06/21 Fungal Culture 1 - Preliminary, Resulted Culture In Progress 07/05/21 C. difficile GDH Antigen & Toxins - Final, Complete 07/03/21 Blood Culture - Preliminary, Resulted No growth 07/03/21 Urine Culture - Final, Complete Escherichia coli Assessment/Plan Assessment/Plan Assess & Plan/Chief Complaint anemia, diarrhea, dysphagia with eosphageal candidiasis, diffuse c. diff colitis. cont medical therapy. diet as tolerated. likely will need SNF at the [facility]. Clinical Quality Measures DVT/VTE Risk/Contraindication: Contraindications-Pharm: Other *list below* Other: SUSPECT GI BLEED, WILL NOT ORDER ANTICOAGULATION CLYDE CRISTOBAL MD Jul 07, 2021 17:13
[2021-07-07] MEDS: cefTRIAXone 1 GM PRE-MIX 1 GM/50 ML BAG IV SCH (17:51)
[2021-07-07 19:47] VITALS: BP 140/52
[2021-07-08] VITALS: BP 135/63
[2021-07-08] MEDS: VANCOMYCIN 125 MG CAPSULE PO SCH ×3 (00:03→12:27)
[2021-07-08 06:13] LABS: HEMATOCRIT 26 % (35-52); HEMOGLOBIN 8.1 g/dL (11.5-16.0); MEAN CORPUSCULAR HEMOGLOBIN 29 pg (25-34); MEAN CORPUSCULAR HGB CONC 32 g/dL (32-36); MEAN CORPUSCULAR VOLUME 91 fL (80-99); PLATELET COUNT 361 10^3/uL (130-400); WHITE BLOOD COUNT 12.7 10^3/uL (4.3-11.0)
[2021-07-08 06:25] LABS: POTASSIUM 3.1 MMOL/L (3.6-5.0)
[2021-07-08 06:26] LABS: CALCIUM 7.3 MG/DL (8.5-10.1)
[2021-07-08 06:30] LABS: CREATININE SERUM 0.57 MG/DL (0.60-1.30)
[2021-07-08 06:32] LABS: MAGNESIUM 1.7 MG/DL (1.6-2.4)
[2021-07-08 08:00] VITALS: BP 135/61
[2021-07-08] MEDS ORDERED: CALCIUM CARB + VIT D 600 MG (CALCARB + D) TAB PO ONE (08:30)
[2021-07-08] MEDS ORDERED: KCL 20 MEQ TAB (K-DUR) PO ONE (08:45)
--- NOTE | 2021-07-08 09:34 | Discharge Summary ---
Diagnosis/Chief Complaint Date of Admission Jul 03, 2021 at 16:58 Date of Discharge Reason Hospital Visit PT IS A 76 Y/O FEMALE WHO IS KNOWN TO ME FROM CLINIC. SHE PRESENTED TO THE HOSPITAL STRAIGHT FROM A FAMILY VACATION TO [facility]. SHE APPARENTLY STARTED TO ACT ABNORMALLY ON THEIR LAST FEW DAYS IN [place]. SHE WAS NOT EATING OR DRINKING WELL AND SHE BECAME INCREASINGLY WEAK AND SOMEWHAT CONFUSED. PT ADMITTED TO NOT EATING "BECAUSE I DIDN'T FEEL LIKE IT" - THEN ADMITTED TO FEELING A LITTLE NAUSEATED AND THAT IS WHY SHE STOPPED EATING AND DRINKING. Discharge Summary Discharge Physical Examination Allergies: Coded Allergies: Sulfa (Sulfonamide Antibiotics) (Unverified Allergy, Mild, 05/07/09) ampicillin (Unverified Allergy, Mild, 05/07/09) nitrofurantoin (Unverified Allergy, Mild, RASH, 09/26/17) codeine (Unverified Adverse Reaction, Mild, NAUSEA, 09/26/17) hydrocodone (Unverified Adverse Reaction, Mild, NAUSEA, 09/26/17) tramadol (Unverified Adverse Reaction, Mild, NAUSEA, 09/26/17) Vitals & I&Os Vital Signs Date Time Temp Pulse Resp B/P (MAP) Pulse Ox O2 Delivery O2 Flow Rate FiO2 07/08/21 08:00 36.4 85 17 135/61 (85) Room Air 07/08/21 00:00 94 07/06/21 16:30 4 Hospital Course Pending Labs Laboratory Tests 07/08/21 06:06: White Blood Count 12.7, Red Blood Count 2.80, Hemoglobin 8.1, Hematocrit 26, Mean Corpuscular Volume 91, Mean Corpuscular Hemoglobin 29, Mean Corpuscular Hemoglobin Concent 32, Red Cell Distribution Width 15.7, Platelet Count 361, Mean Platelet Volume 9.0, Sodium Level 132, Potassium Level 3.1, Chloride Level 106, Carbon Dioxide Level 17, Anion Gap 9, Blood Urea Nitrogen 8, Creatinine 0.57, Estimat Glomerular Filtration Rate 94, BUN/Creatinine Ratio 14, Glucose Level 101, Calcium Level 7.3, Magnesium Level 1.7 Discharge Instructions to patient/family Please see electronic discharge instructions given to patient. Discharge Medications Reviewed and agree with Discharge Medication list on patient's Discharge Instruction sheet Clinical Quality Measures DVT/VTE Risk/Contraindication: Contraindications-Pharm: Other *list below* Other: SUSPECT GI BLEED, WILL NOT ORDER ANTICOAGULATION BOY FISHER MD Jul 08, 2021 09:34
[2021-07-08] MEDS ORDERED: FLUC150T PO (09:40)
[2021-07-08] MEDS ORDERED: CALC-250 PO (09:40)
[2021-07-08] MEDS ORDERED: ACET-2650 PO (09:40)
[2021-07-08] MEDS ORDERED: MIRA50TA PO (09:40)
[2021-07-08] MEDS ORDERED: VANC125C5 PO (09:40)
[2021-07-08] MEDS ORDERED: UBID100C44 PO (09:40)
[2021-07-08] MEDS ORDERED: NYST1000 PO (09:40)
[2021-07-08] MEDS ORDERED: CEFD300C3 PO (09:40)
[2021-07-08] MEDS ORDERED: SPIR100T4 PO (09:40)
[2021-07-08] MEDS ORDERED: ROSU20TA32 PO (09:40)
[2021-07-08] MEDS ORDERED: LACT1CAP7 PO (09:40)
[2021-07-08] MEDS ORDERED: AMT10T PO (09:40)
--- NOTE | 2021-07-08 09:41 | Discharge Inst-Skilled Nursing ---
Discharge Inst-Skilled NF Reconcile Patient Problems Problems Reviewed?: Yes Patient Instructions Patient Problems: ECOLI URINARY TRACT INFECTION ACUTE ANEMIA SUSPECT GI BLEED LEUKOCYTOSIS HYPONATREMIA GENERALIZED WEAKNESS HISTORY OF NORMAL PRESSURE HYDROCEPHALUS CDIFF COLITIS ESOPHAGEAL CANDIDIASIS DIARRHEA Goal: INCREASE STRENGTH, IMPROVED AMBULATION, RESOLUTION OF ILLNESS Consult/Follow Up/Orders Follow Up Appt.: 1 WK PHILLIP 2 WK SUSU Lazo NF Admit to: [facility] Certification (SNF) I certify that SNF services are required to be given on an inpatient basis becau se of the above named patient's need for assisted care on a continuing basis for the conditions(s) for which he/she was receiving inpatient hospital services prior to his/her transfer to the SNF. [facility] Facility Order: Nursing Services, Operations Clerk-Evaluate & Treat, Physical Therapy-Evaluate & Treat Oxygen Delivery Method: Room Air Discharge Diet: Regular Diet Daily Activity as Tolerated: Yes Resuscitation Status: Full Code New & Resume Previous Orders Boy Dallas Jul 08, 2021 09:40 BOY DALLAS MD Jul 08, 2021 09:41
[2021-07-08] MEDS: PANTOPRAZOLE 40 MG (PROTONIX) VIAL IV SCH (09:44)
[2021-07-08] MEDS: LACTOBACILLUS ACIDOPHILUS (PROBIOTIC) CAPSULE PO SCH ×2 (09:44→12:27)
[2021-07-08] MEDS: FLUCONAZOLE 100 MG/50 ML 50 ML IV SCH (09:44)
[2021-07-08] MEDS: AMITRIPTYLINE 10 MG (ELAVIL) TAB PO SCH (09:53)
[2021-07-08] MEDS: NS IV 1000 ML 1,000 ML IV SCH (12:27)
--- NOTE | 2021-07-08 12:42 | Physical Therapy Daily Note ---
PT Daily Note-Current Subjective Proper PPE was used upon entering room. Patient had presented with a bowel incontinence and was cleaned up by PT. Pain Location: No Pain Reported Mental Status Patient Orientation: Person, Place, Situation Attachments: Finn Catheter Transfers SCALE: Activities may be completed with or without assistive devices. 1-Vyhwnijyxi-wfntovh completes the activity by him/herself with no assistance from a helper. 5-Set-up or Clean-up Assistance-helper sets up or cleans up; patient completes activity. [place] assists only prior to or following the activity. 4-Supervision or Touching Assistance-helper provides verbal cues and/or touching/steadying and/or contact guard assistance as patient completes activity. Assistance may be provided throughout the activity or intermittently. 3-Partial/Moderate Assistance-helper does LESS THAN HALF the effort. [place] lifts, holds or supports trunk or limbs, but provides less than half the effort. 2-Substantial/Maximal Assistance-helper does MORE THAN HALF the effort. [place] lifts or holds trunk or limbs and provides more than half the effort. 2-Rupjpbpmn-itvcef does ALL the effort. Patient does none of the effort to complete the activity. Or, the assistance of 2 or more helpers is required for the patient to complete the activity. If activity was not attempted, code reason: 7-Patient Refused. 9-Not Applicable-not attempted and the patient did not perform the activity before the current illness, exacerbation or injury. 10-Not Attempted due to Environmental Limitations-(lack of equipment, weather restraints, etc.). 88-Not Attempted due to Medical Conditions or Safety Concerns. Roll Left & Right (QC): 2 Lying to Sitting/Side of Bed(Q: 2 Sit to Stand (QC): 3 Weight Bearing Full Weight Bearing Full Weight Bearing Gait Training Does the Patient Walk?: No and Walking Goal IS indicated Treatments Bed mobility, Transfers Assessment Current Status: Fair Progress Patient required modA for the LE and trunk to transfer from lying to sitting secondary to weakness. Patient was too weak to stand on own and required ModAx1 to with VC to stand pivot transfer. Patient was left sitting in chair with call light, tray, and all needs met. PT Alf Goals Alf Goals PT Alf Goals Time Frame: Jul 10, 2021 Roll Left & Right (QC): 3 Sit to Lying (QC): 3 Lying-Sitting on Side/Bed(QC): 3 Sit to Stand (QC): 3 Chair/Zpb-wn-Tadqv Xfer(QC): 3 Walk 10 feet (QC): 2 PT Plan Problem List Problem List: Activity Tolerance, Functional Strength, Safety, Balance, Gait, Transfer, Bed Mobility, ROM Treatment/Plan Treatment Plan: Continue Plan of Care Treatment Plan: Bed Mobility, Education, Functional Activity Reynaldo, Functional Strength, Gait, Safety, Therapeutic Exercise, Transfers Treatment Duration: Jul 10, 2021 Frequency: 6 times per week Estimated Hrs Per Day: .25 hour per day Time/GCodes Time In: 1011 Time Out: 1026 Total Billed Treatment Time: 15 Total Billed Treatment 1 Visit FA 15min NEVA SANCHES PT Jul 08, 2021 12:42
== END 2021-07-08 15:20 | DRG 368 ==
LOC: EDUNIT# 13:23 → ER 13:24 → 4TH 16:58
PROVIDERS: ADMIT Family Medicine; ATTEND Family Medicine
PROC: 0DB68ZX Excision of Stomach, Via Natural or Artificial Opening Endoscopic, Diagnostic (ICD-10-PCS; 2021-07-06)
PROC: 0DBP8ZX Excision of Rectum, Via Natural or Artificial Opening Endoscopic, Diagnostic (ICD-10-PCS; 2021-07-06)
PROC: 0DBN8ZX Excision of Sigmoid Colon, Via Natural or Artificial Opening Endoscopic, Diagnostic (ICD-10-PCS; 2021-07-06)
PROC: 0DD58ZX Extraction of Esophagus, Via Natural or Artificial Opening Endoscopic, Diagnostic (ICD-10-PCS; principal; 2021-07-06 15:12)
PROC: 0DB48ZX Excision of Esophagogastric Junction, Via Natural or Artificial Opening Endoscopic, Diagnostic (ICD-10-PCS; 2021-07-06 15:12)
DX: B37.81 Candidal esophagitis (principal); K21.01 Gastro-esophageal reflux disease with esophagitis, with bleeding; K29.71 Gastritis, unspecified, with bleeding; K57.31 Diverticulosis of large intestine without perforation or abscess with bleeding; N39.0 Urinary tract infection, site not specified; E87.1 Hypo-osmolality and hyponatremia; A04.72 Enterocolitis due to Clostridium difficile, not specified as recurrent; D64.9 Anemia, unspecified; E78.00 Pure hypercholesterolemia, unspecified; I10 Essential (primary) hypertension; B96.20 Unspecified Escherichia coli [E. coli] as the cause of diseases classified elsewhere; D72.829 Elevated white blood cell count, unspecified; R53.1 Weakness; K44.9 Diaphragmatic hernia without obstruction or gangrene; K64.8 Other hemorrhoids
CPT/HCPCS: 36415; 51701; 80048; 80053; 81000; 82274; 82728; 83540; 83550; 83605; 83735; 85007; 85014; 85018; 85025; 85027; 85610; 85730; 86850; 86900; 86901; 87040; 87077; 87088; 87101; 87186; 87324; 87449; 94640; 94760; 96361; 96365; 96375

== ENCOUNTER 2022-07-14 15:21 | Outpatient (RCR) | payer MEDICARE ==
[~2022-07-14 15:21] MED LIST changes: +CEFD300C3 PO; +FLUC150T PO; +LACT1CAP7 PO; +NYST1000 PO; +VANC125C5 PO
== END 2022-07-15 | disposition home or self-care (01) ==
PROVIDERS: ATTEND Family Medicine
DX: G91.2 (Idiopathic) normal pressure hydrocephalus (principal); R53.1 Weakness; R41.3 Other amnesia

== ENCOUNTER 2022-08-11 10:48 | Outpatient (RCR) | payer MEDICARE | END 2022-08-14 | disposition home or self-care (01) | PROVIDERS: ATTEND Family Medicine | DX: R53.1 Weakness (principal); R26.89 Other abnormalities of gait and mobility; R41.3 Other amnesia ==

== ENCOUNTER 2022-09-13 12:49 | Outpatient (RCR) | payer MEDICARE | END 2022-09-14 | disposition home or self-care (01) | PROVIDERS: ATTEND Family Medicine | DX: G91.2 (Idiopathic) normal pressure hydrocephalus (principal); D72.821 Monocytosis (symptomatic); I10 Essential (primary) hypertension; R53.1 Weakness ==

== ENCOUNTER 2022-09-29 11:23 | Outpatient (RCR) | payer MEDICARE | END 2022-09-29 17:00 | disposition home or self-care (01) | PROVIDERS: ATTEND Family Medicine | DX: G91.2 (Idiopathic) normal pressure hydrocephalus (principal); D72.821 Monocytosis (symptomatic); I10 Essential (primary) hypertension; R53.1 Weakness ==